=== PATIENT | female | born 1960 | race Caucasian/White ===

== ENCOUNTER 2019-01-26 08:59 | Emergency (ER) | payer BC, OTHER ==
[~2019-01-26] VITALS: Ht 165.1 cm; Wt 90.7 kg
[2019-01-26 09:22] LABS: BILIRUBIN,URINE NEGATIVE (NEGATIVE); CLARITY,URINE CLEAR; COLOR,URINE YELLOW; GLUCOSE, URINE (UA) NEGATIVE (NEGATIVE); KETONES,URINE NEGATIVE (NEGATIVE); LEUKOCYTE ESTERASE ,URINE 1+ (NEGATIVE); NITRITE,URINE NEGATIVE (NEGATIVE); PROTEIN,URINE NEGATIVE (NEGATIVE)
[2019-01-26 09:23] LABS: BACTERIA,URINE FEW /HPF
--- NOTE | 2019-01-26 09:23 | ED General ---
General Chief Complaint: Dizziness/Syncope Stated Complaint: SUPRAPUBIC PAIN; SYNCOPE; FEVER History of Present Illness Date Seen by Provider: Jan 26, 2019 Time Seen by Provider: 09:10 Initial Comments The patient is a very pleasant 58-year-old female who presents for evaluation of dysuria, suprapubic discomfort, and a syncopal episode in the bathroom this morning. She states that she had been feeling somewhat fatigue and possibly had a fever at home. She said a few days of dysuria and urinary urgency. This morning while she was home alone on the bathroom she states that she had a syncopal episode while urinating and hit her head on the ground. She does not believe that she lost consciousness. She states that she has chronic neck pain which is not any worse than usual. She has mild soreness to the back/right side of her head. She is alert and oriented 4, calm, appears to be in no distress upon arrival. She denies vision changes, focal weakness or numbness, chest pain or shortness of breath, back or flank pain, back pain/bleeding/discharge, headache, or nausea. She reports a history of hypertension. The abdominal discomfort is described as very mild at this time. Her was at work at the time and has come to the emergency department Severity: Mild Allergies and Home Medications Allergies Coded Allergies: No Known Drug Allergies (Unverified , 01/26/19) Home Medications Cephalexin 500 Mg Capsule, 500 MG PO BID Prescribed by: SUZANNA RIVERO on 01/26/19 1146 Patient Home Medication List Home Medication List Reviewed: Yes Review of Systems Review of Systems Constitutional: no symptoms reported EENTM: no symptoms reported Respiratory: no symptoms reported Cardiovascular: no symptoms reported Gastrointestinal: abdominal pain (suprapubic and mild) Genitourinary: no symptoms reported : No Musculoskeletal: no symptoms reported Skin: no symptoms reported Psychiatric/Neurological: No Symptoms Reported Hematologic/Lymphatic: No Symptoms Reported Immunological/Allergic: no symptoms reported All Other Systems Reviewed Negative Unless Noted: Yes Past Cyyzgxz-Tpmelx-Meemfu Hx Past Med/Social Hx: Reviewed Nursing Past Med/Soc Hx Physical Exam Vital Signs Vital Signs - First Documented 01/26/19 09:05 Temp 98.5 Pulse 84 Resp 18 B/P (MAP) 150/75 (100) Pulse Ox 95 O2 Delivery Room Air Capillary Refill : Height, Weight, BMI Height: '" Weight: lbs. oz. kg; BMI Method: General Appearance: No Apparent Distress, WD/WN HEENT: PERRL/EOMI, Pharynx Normal Neck: Full Range of Motion, Normal Inspection, Non Tender, Supple Respiratory: Chest Non Tender, Lungs Clear, Normal Breath Sounds, No Respiratory Distress Cardiovascular: Regular Rate, Rhythm, No Gallop, No JVD, Normal Peripheral Pulses Gastrointestinal: Normal Bowel Sounds, No Organomegaly, No Pulsatile Mass, Tenderness (mild suprapubic tenderness is present) Rectal: Normal Exam Back: Normal Inspection, No CVA Tenderness Extremity: Normal Capillary Refill, Normal Inspection, Normal Range of Motion, Non Tender, No Calf Tenderness Neurologic/Psychiatric: Alert, Oriented x3, No Motor/Sensory Deficits, Normal 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, 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 as 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 Skin: Normal Color, Warm/Dry Lymphatic: No Adenopathy Progress/Results/Core Measures Suspected Sepsis SIRS Temperature: Pulse: Respiratory Rate: Laboratory Tests 01/26/19 08:20: White Blood Count 12.0H Blood Pressure / Mean: Laboratory Tests 01/26/19 08:20: Creatinine 0.78, Platelet Count 344, Total Bilirubin 1.1H Results/Orders Lab Results Laboratory Tests Test 01/26/19 08:20 01/26/19 09:03 01/26/19 09:20 Range/Units White Blood Count 12.0 H 4.3-11.0 10^3/uL Red Blood Count 5.18 4.35-5.85 10^6/uL Hemoglobin 15.5 11.5-16.0 G/DL Hematocrit 46 35-52 % Mean Corpuscular Volume 89 80-99 FL Mean Corpuscular Hemoglobin 30 25-34 PG Mean Corpuscular Hemoglobin Concent 34 32-36 G/DL Red Cell Distribution Width 12.5 10.0-14.5 % Platelet Count 344 130-400 10^3/uL Mean Platelet Volume 9.4 7.4-10.4 FL Neutrophils (%) (Auto) 79 H 42-75 % Lymphocytes (%) (Auto) 12 12-44 % Monocytes (%) (Auto) 7 0-12 % Eosinophils (%) (Auto) 1 0-10 % Basophils (%) (Auto) 0 0-10 % Neutrophils # (Auto) 9.4 H 1.8-7.8 X 10^3 Lymphocytes # (Auto) 1.5 1.0-4.0 X 10^3 Monocytes # (Auto) 0.9 0.0-1.0 X 10^3 Eosinophils # (Auto) 0.1 0.0-0.3 10^3/uL Basophils # (Auto) 0.0 0.0-0.1 10^3/uL Sodium Level 140 135-145 MMOL/L Potassium Level 4.0 3.6-5.0 MMOL/L Chloride Level 103 98-107 MMOL/L Carbon Dioxide Level 25 21-32 MMOL/L Anion Gap 12 5-14 MMOL/L Blood Urea Nitrogen 13 7-18 MG/DL Creatinine 0.78 0.60-1.30 MG/DL Estimat Glomerular Filtration Rate > 60 BUN/Creatinine Ratio 17 Glucose Level 101 70-105 MG/DL Calcium Level 9.6 8.5-10.1 MG/DL Corrected Calcium 9.6 8.5-10.1 MG/DL Total Bilirubin 1.1 H 0.1-1.0 MG/DL Aspartate Amino Transf (AST/SGOT) 23 5-34 U/L Alanine Aminotransferase (ALT/SGPT) 19 0-55 U/L Alkaline Phosphatase 102 40-136 U/L Total Protein 7.2 6.4-8.2 GM/DL Albumin 4.0 3.2-4.5 GM/DL Urine Color YELLOW Urine Clarity CLEAR Urine pH 6.0 5-9 Urine Specific [place] 1.020 1.016-1.022 Urine Protein NEGATIVE NEGATIVE Urine Glucose (UA) NEGATIVE NEGATIVE Urine Ketones NEGATIVE NEGATIVE Urine Nitrite NEGATIVE NEGATIVE Urine Bilirubin NEGATIVE NEGATIVE Urine Urobilinogen 1.0 NORMAL MG/DL Urine Leukocyte Esterase 1+ H NEGATIVE Urine RBC (Auto) NEGATIVE NEGATIVE Urine RBC NONE /HPF Urine WBC 2-5 /HPF Urine Squamous Epithelial Cells 2-5 /HPF Urine Crystals NONE /LPF Urine Bacteria FEW H /HPF Urine Casts NONE /LPF Urine Mucus NONE /LPF Urine Culture Indicated YES Lipase 20 8-78 U/L My Orders Orders - SUZANNA RIVERO DO Ua Culture If Indicated (01/26/19 09:01) Cbc With Automated Diff (01/26/19 09:12) Comprehensive Metabolic Panel (01/26/19 09:12) Ed Iv/Invasive Line Start (01/26/19 09:12) Ct Head Wo (01/26/19 09:24) Urine Culture (01/26/19 09:03) Ns Iv 1000 Ml (Sodium Chloride 0.9%) (01/26/19 09:45) Ceftriaxone For Iv Use (Rocephin For I (01/26/19 09:45) Ondansetron Injection (Zofran Injectio (01/26/19 10:00) Ondansetron Injection (Zofran Injectio (01/26/19 09:54) Lipase (01/26/19 10:02) Ct Abdomen/Pelvis W (01/26/19 10:02) Iohexol Injection (Omnipaque 350 Mg/Ml 1 (01/26/19 10:15) Received Contrast (Hold Metformin- Contr (01/26/19 10:15) Sodium Chloride Flush (Catheter Flush Sy (01/26/19 10:15) Ns (Ivpb) (Sodium Chloride 0.9% Ivpb Bag (01/26/19 10:15) Medications Given in ED Current Medications Medications Dose Ordered Sig/Chris Route Start Time Stop Time Status Last Admin Dose Admin Ceftriaxone Sodium 1000 mg/ Sterile Water 10 ml @ 200 mls/hr ONCE ONCE IV 01/26/19 09:45 01/26/19 09:47 DC 01/26/19 09:58 200 MLS/HR Iohexol 100 ml ONCE ONCE IV 01/26/19 10:15 01/26/19 10:16 DC 01/26/19 13:45 100 ML Ondansetron HCl 4 mg ONCE ONCE IVP 01/26/19 10:00 01/26/19 10:01 DC 01/26/19 10:01 4 MG Sodium Chloride 10 ml NEEDED PRN IV 01/26/19 10:15 01/26/19 13:45 10 ML Sodium Chloride 100 ml ONCE ONCE IV 01/26/19 10:15 01/26/19 10:16 DC 01/26/19 13:45 100 ML Vital Signs/I&O 01/26/19 09:05 Temp 98.5 Pulse 84 Resp 18 B/P (MAP) 150/75 (100) Pulse Ox 95 O2 Delivery Room Air Capillary Refill : Progress Note : Progress Note @1020 - The patient reports that she is still nauseated and is having some slightly increasing lower abdominal discomfort. CT abdomen ordered. Vital signs stable and the patient remains afebrile. @1045 - there is a problem with the machine that runs the chemistries so the blood will need to be sent out. This was explained to the patient. @1130 - the patient stated that she just wanted to be discharged home and that she was feeling better. We explained to the patient that she would need to leave AGAINST MEDICAL ADVICE because we did not have the results of her chemistry test or her CT. Initially she states that she wants to leave AGAINST MEDICAL ADVICE. After a few minutes she changes her mind and states that she will in fact wait for the blood tests and imaging to be performed and does not want to leave against medical. @1419 - CT demonstrates evidence of acute diverticulitis. The patient will go home with a prescription for Cipro, Flagyl, and Saltese. This should also cover the urinary tract infection. Advised patient to follow up with her PCP in the next 2-3 days and return to the emergency Department immediately for new or worsening symptoms. Diagnostic Imaging Diagonstic Imaging: CT Comments [facility] [place] [place] NAME: MOUNIKA CUENCA [facility] REC#: [id number] PT STATUS: REG ER : 1960 PHYSICIAN: SUZANNA RIVERO DO ADMIT DATE: 01/26/19/ER FS Draft Date of Exam:01/26/19 CT HEAD WO PROCEDURE: CT head without contrast. TECHNIQUE: Multiple contiguous axial images were obtained through the brain without the use of intravenous contrast. Auto Exposure Controls were utilized during the CT exam to meet ALARA standards for radiation dose reduction. INDICATION: Headache, dizziness and syncope. COMPARISON: No prior studies are available for comparison. FINDINGS: The ventricles and sulci are within normal limits. No sulcal effacement or midline shift is identified. No acute intra-axial or extra-axial hemorrhage is detected. Cisterns are patent. Visualized paranasal sinuses are clear. Impression: No acute intracranial process is detected. Dictated on workstation # [id number] Dict: 01/26/1948 Trans: 01/26/19 0950 [facility] [id number] Interpreted by: WILTON ARROYO MD Electronically signed by: CLYDE [facility] [place] [place] NAME: MOUNIKA CUENCA [facility] REC#: [id number] PT STATUS: REG ER : 1960 PHYSICIAN: SUZANNA RIVERO DO ADMIT DATE: 01/26/19/ER FS Draft Date of Exam:01/26/19 CT ABDOMEN/PELVIS W PROCEDURE: CT abdomen and pelvis with contrast. TECHNIQUE: Multiple contiguous axial images were obtained through the abdomen and pelvis after administration of intravenous contrast. Auto Exposure Controls were utilized during the CT exam to meet ALARA standards for radiation dose reduction. INDICATION: Suprapubic pain and cramping. COMPARISON: None. FINDINGS: LOWER THORAX: Lung bases are clear. Visualized heart is normal in size. LIVER: Normal. GALLBLADDER: Normal CT appearance. BILE DUCTS: No biliary ductal dilatation. SPLEEN: Normal. PANCREAS: Normal. No pancreatic ductal dilatation. ADRENAL GLANDS: No nodules. RIGHT KIDNEY AND URETER: No hydronephrosis. Normal renal enhancement. No suspicious mass. The visualized ureter is normal. LEFT KIDNEY AND URETER: No hydronephrosis. Normal renal enhancement. No suspicious mass. Incidental note is made of a parapelvic cyst in the lower pole collecting system. The visualized ureter is normal. STOMACH AND BOWEL: Small hiatal hernia. Patient is status post gastric bypass surgery. Evaluation of site of anastomosis is limited without oral contrast, however, no anastomotic abnormality is appreciated. No bowel obstruction. There is diverticulosis of the lung. There is marked focal thickening in the mid sigmoid colon, with moderate surrounding inflammatory change. APPENDIX: Not visualized. No pericecal inflammation. PELVIC ORGANS/BLADDER: There is apparent mild circumferential thickening of the bladder. There is mild inflammatory change superior to the bladder, likely related to the findings in the sigmoid colon. Uterus is absent. No pelvic mass. PERITONEUM AND RETROPERITONEUM: As mentioned above, there is marked pericolonic inflammatory change in the pelvis adjacent to the mid sigmoid colon. There is no evidence of pneumoperitoneum or focal/loculated rim-enhancing collection to suggest abscess. LYMPH NODES: No lymphadenopathy. VESSELS: Abdominal aorta is nonaneurysmal. No venous thrombosis. ABDOMINAL WALL: Unremarkable. BONES: Multilevel degenerative changes involve the spine. No acute osseous abnormality. IMPRESSION: Acute diverticulitis involving the mid sigmoid colon. No evidence of perforation or abscess formation. There is apparent circumferential thickening of the bladder, which may be secondary to underdistention. Inflammatory change adjacent to the superior bladder is felt to be related to the sigmoid colon process. Dictated on workstation # [id number] Dict: 01/26/19 1354 Trans: 01/26/19 1406 [facility] [id number] Interpreted by: ALMAZ CEULLAR DO Electronically signed by: Departure Impression Primary Impression: Acute diverticulitis Additional Impression: Acute UTI Disposition: 01 HOME, SELF-CARE Condition: Stable Departure-Patient Inst. Referrals: GAVIOTA CATES MD (PCP/Family) Primary Care Physician Patient Instructions: Diverticulitis (DC), Urinary Tract Infection, Adult (DC) Add. Discharge Instructions: Take the prescribed medication as directed. Return to the emergency department for new or worsening symptoms. Follow up with her doctor in the next 2-3 days. Scripts Hydrocodone/Acetaminophen (Saltese 5-325 Tablet) 1 Each Tablet 1 TAB PO Q4-6HR for Pain MDD 10 TABS for 7 Days, #15 TAB Prov: SUZANNA RIVERO DO 01/26/19 Ciprofloxacin HCl (Ciprofloxacin HCl) 500 Mg Tablet 500 MG PO BID for 7 Days, #14 TAB Prov: SUZANNA RIVERO DO 01/26/19 Metronidazole (Flagyl) 500 Mg Tablet 500 MG PO TID for 7 Days, #21 TAB Prov: SUZANNA RIVERO DO 01/26/19 SUZANNA RIVERO DO Jan 26, 2019 09:23
[2019-01-26 09:32] LABS: HEMATOCRIT 46 % (35-52); HEMOGLOBIN 15.5 G/DL (11.5-16.0); MEAN CORPUSCULAR HEMOGLOBIN 30 PG (25-34); MEAN CORPUSCULAR HGB CONC 34 G/DL (32-36); MEAN CORPUSCULAR VOLUME 89 FL (80-99); RED CELL DISTRIBUTION WIDTH 12.5 % (10.0-14.5)
[2019-01-26 09:33] LABS: BASOPHILS % (AUTO) 0 % (0-10); EOSINOPHILS # (AUTO) 0.1 10^3/uL (0.0-0.3); EOSINOPHILS % (AUTO) 1 % (0-10); LYMPHOCYTES # (AUTO) 1.5 X 10^3 (1.0-4.0); LYMPHOCYTES % (AUTO) 12 % (12-44); MEAN PLATELET VOLUME 9.4 FL (7.4-10.4); MONOCYTES # (AUTO) 0.9 X 10^3 (0.0-1.0); MONOCYTES % (AUTO) 7 % (0-12); NEUTROPHILS # (AUTO) 9.4 X 10^3 (1.8-7.8); NEUTROPHILS % (AUTO) 79 % (42-75); PLATELET COUNT 344 10^3/uL (130-400)
[2019-01-26] MEDS ORDERED: cefTRIAXone FOR IV USE 1,000 MG in WATER (STERILE) FOR INJECTION 10 ML IV ONE (09:45)
[2019-01-26] MEDS ORDERED: NS IV 1000 ML 1,000 ML IV SCH (09:45)
--- NOTE | 2019-01-26 09:50 | Diagnostic Imaging Report ---
PROCEDURE: CT head without contrast. TECHNIQUE: Multiple contiguous axial images were obtained through the brain without the use of intravenous contrast. Auto Exposure Controls were utilized during the CT exam to meet ALARA standards for radiation dose reduction. INDICATION: Headache, dizziness and syncope. COMPARISON: No prior studies are available for comparison. FINDINGS: The ventricles and sulci are within normal limits. No sulcal effacement or midline shift is identified. No acute intra-axial or extra-axial hemorrhage is detected. Cisterns are patent. Visualized paranasal sinuses are clear. Impression: No acute intracranial process is detected. Dictated by: Dictated on workstation # [id number]
[2019-01-26] MEDS ORDERED: ONDANSETRON 4 MG/2 ML (SDV) Z0FRAN ONE (09:54)
[2019-01-26] MEDS ORDERED: ONDANSETRON 4 MG/2 ML (SDV) Z0FRAN IVP ONE (10:00)
[2019-01-26] MEDS ORDERED: IOHEXOL 350 MG/ML 100 ML (OMNIPAQUE 350) VIAL IV ONE (10:15)
[2019-01-26] MEDS ORDERED: CATHETER FLUSH 10 ML SYR IV PRN (10:15)
[2019-01-26] MEDS ORDERED: NS 100 ML (IVPB) BAG IV ONE (10:15)
[2019-01-26] MEDS ORDERED: HOLD METFORMIN - RECEIVED CONTRAST 20 ML VIAL IV SCH (10:15)
[2019-01-26] MEDS ORDERED: CEPH-507 PO (11:46)
[2019-01-26 13:20] LABS: BUN/CREATININE RATIO 17; CALCIUM 9.6 MG/DL (8.5-10.1); CARBON DIOXIDE 25 MMOL/L (21-32); CHLORIDE 103 MMOL/L (98-107); CREATININE SERUM 0.78 MG/DL (0.60-1.30); GFR ESTIMATED > 60; GLUCOSE 101 MG/DL (70-105); SODIUM 140 MMOL/L (135-145)
[2019-01-26 13:21] LABS: ALANINE AMINOTRANSFERASE 19 U/L (0-55); ALKALINE PHOSPHATASE 102 U/L (40-136); BILIRUBIN,TOTAL 1.1 MG/DL (0.1-1.0); TOTAL PROTEIN 7.2 GM/DL (6.4-8.2)
--- NOTE | 2019-01-26 14:07 | Diagnostic Imaging Report ---
PROCEDURE: CT abdomen and pelvis with contrast. TECHNIQUE: Multiple contiguous axial images were obtained through the abdomen and pelvis after administration of intravenous contrast. Auto Exposure Controls were utilized during the CT exam to meet ALARA standards for radiation dose reduction. INDICATION: Suprapubic pain and cramping. COMPARISON: None. FINDINGS: LOWER THORAX: Lung bases are clear. Visualized heart is normal in size. LIVER: Normal. GALLBLADDER: Normal CT appearance. BILE DUCTS: No biliary ductal dilatation. SPLEEN: Normal. PANCREAS: Normal. No pancreatic ductal dilatation. ADRENAL GLANDS: No nodules. RIGHT KIDNEY AND URETER: No hydronephrosis. Normal renal enhancement. No suspicious mass. The visualized ureter is normal. LEFT KIDNEY AND URETER: No hydronephrosis. Normal renal enhancement. No suspicious mass. Incidental note is made of a parapelvic cyst in the lower pole collecting system. The visualized ureter is normal. STOMACH AND BOWEL: Small hiatal hernia. Patient is status post gastric bypass surgery. Evaluation of site of anastomosis is limited without oral contrast, however, no anastomotic abnormality is appreciated. No bowel obstruction. There is diverticulosis of the lung. There is marked focal thickening in the mid sigmoid colon, with moderate surrounding inflammatory change. APPENDIX: Not visualized. No pericecal inflammation. PELVIC ORGANS/BLADDER: There is apparent mild circumferential thickening of the bladder. There is mild inflammatory change superior to the bladder, likely related to the findings in the sigmoid colon. Uterus is absent. No pelvic mass. PERITONEUM AND RETROPERITONEUM: As mentioned above, there is marked pericolonic inflammatory change in the pelvis adjacent to the mid sigmoid colon. There is no evidence of pneumoperitoneum or focal/loculated rim-enhancing collection to suggest abscess. LYMPH NODES: No lymphadenopathy. VESSELS: Abdominal aorta is nonaneurysmal. No venous thrombosis. ABDOMINAL WALL: Unremarkable. BONES: Multilevel degenerative changes involve the spine. No acute osseous abnormality. IMPRESSION: Acute diverticulitis involving the mid sigmoid colon. No evidence of perforation or abscess formation. There is apparent circumferential thickening of the bladder, which may be secondary to underdistention. Inflammatory change adjacent to the superior bladder is likely related to the sigmoid colon process. Acute cystitis should be excluded on a clinical basis. Dictated by: Dictated on workstation # [id number]
[2019-01-26] MEDS ORDERED: METR500T PO (14:18)
[2019-01-26] MEDS ORDERED: HYDR-4226 PO (14:18)
[2019-01-26] MEDS ORDERED: CIPR500T4 PO (14:18)
[2019-01-26 14:30] VITALS: BP 139/67
== END 2019-01-26 14:34 | disposition home or self-care (01) ==
LOC: ER FS 09:01
DX: N39.0 Urinary tract infection, site not specified (principal); K57.32 Diverticulitis of large intestine without perforation or abscess without bleeding
CPT/HCPCS: 36415; 70450; 74177; 80053; 81000; 83690; 85025; 87088; 96361; 96374; 96375

== ENCOUNTER 2019-05-08 22:35 | Emergency (ER) | payer BC ==
[~2019-05-08] VITALS: Ht 165 cm; Wt 90.1 kg
[~2019-05-08 22:35] MED LIST: CEPH-507 PO; CIPR500T4 PO; HYDR-4226 PO; METR500T PO
[2019-05-08] MEDS ORDERED: VANCOMYCIN INJECTION 1,000 MG in NS (IVPB) 250 ML IV ONE (23:00)
[2019-05-08] MEDS ORDERED: PIPERACILLIN SODIUM/TAZOBACTAM 4.5 GM in NS (IVPB) 100 ML IV ONE (23:00)
[2019-05-08 23:13] LABS: BASOPHILS # (AUTO) 0.1 10^3/uL (0.0-0.1); BASOPHILS % (AUTO) 1 % (0-10); EOSINOPHILS # (AUTO) 0.2 10^3/uL (0.0-0.3); EOSINOPHILS % (AUTO) 2 % (0-10); HEMATOCRIT 43 % (35-52); HEMOGLOBIN 14.2 G/DL (11.5-16.0); LYMPHOCYTES # (AUTO) 1.7 X 10^3 (1.0-4.0); LYMPHOCYTES % (AUTO) 21 % (12-44); MEAN CORPUSCULAR HEMOGLOBIN 29 PG (25-34); MEAN CORPUSCULAR HGB CONC 33 G/DL (32-36); MEAN CORPUSCULAR VOLUME 87 FL (80-99); MEAN PLATELET VOLUME 9.2 FL (7.4-10.4); MONOCYTES # (AUTO) 0.8 X 10^3 (0.0-1.0); MONOCYTES % (AUTO) 9 % (0-12); NEUTROPHILS # (AUTO) 5.6 X 10^3 (1.8-7.8); NEUTROPHILS % (AUTO) 67 % (42-75); PLATELET COUNT 389 10^3/uL (130-400); RED CELL DISTRIBUTION WIDTH 13.3 % (10.0-14.5); WHITE BLOOD COUNT 8.4 10^3/uL (4.3-11.0)
[2019-05-08 23:29] LABS: INR 0.9 (0.8-1.4); PROTHROMBIN TIME PATIENT 12.9 SEC (12.2-14.7)
[2019-05-08 23:37] LABS: ALANINE AMINOTRANSFERASE 14 U/L (0-55); ALBUMIN 3.7 GM/DL (3.2-4.5); ALKALINE PHOSPHATASE 101 U/L (40-136); BILIRUBIN,TOTAL 0.6 MG/DL (0.1-1.0); BUN/CREATININE RATIO 14; CALCIUM 9.3 MG/DL (8.5-10.1); CARBON DIOXIDE 20 MMOL/L (21-32); CHLORIDE 105 MMOL/L (98-107); CREATININE SERUM 0.72 MG/DL (0.60-1.30); GFR ESTIMATED > 60; GLUCOSE 119 MG/DL (70-105); POTASSIUM 4.2 MMOL/L (3.6-5.0); SODIUM 138 MMOL/L (135-145); TOTAL PROTEIN 7.2 GM/DL (6.4-8.2)
--- NOTE | 2019-05-08 23:40 | NUR ---
Pt unhooked from IV infusion at this time to go to CT.
[2019-05-09] MEDS ORDERED: NS 100 ML (IVPB) BAG IV ONE
[2019-05-09] MEDS ORDERED: IOHEXOL 350 MG/ML 100 ML (OMNIPAQUE 350) VIAL IV ONE
[2019-05-09 00:09] LABS: BILIRUBIN,URINE NEGATIVE (NEGATIVE); CLARITY,URINE CLEAR; COLOR,URINE YELLOW; GLUCOSE, URINE (UA) NEGATIVE (NEGATIVE); KETONES,URINE NEGATIVE (NEGATIVE); LEUKOCYTE ESTERASE ,URINE 2+ (NEGATIVE); NITRITE,URINE NEGATIVE (NEGATIVE); PH,URINE 6 (5-9); PROTEIN,URINE 1+ (NEGATIVE)
[2019-05-09 00:29] LABS: BACTERIA,URINE FEW /HPF
[2019-05-09] MEDS ORDERED: SULF1TAB35 PO (01:08)
[2019-05-09] MEDS ORDERED: ONDA8TAB13 PO (01:08)
[2019-05-09] MEDS ORDERED: OXYC-465 PO (01:08)
--- NOTE | 2019-05-09 01:09 | ED General ---
General Chief Complaint: General Problems/Pain Stated Complaint: LYMPH NODE REMOVED, AREA IS RED AND PAINFUL Nursing Triage Note: Pt ambulates to Rm 5 with c/o incision pain/redness/swelling after a partial vulvectomy that was performed on 04/25/19. Site is hard to touch, red and swollen upon intial exam. Pt rates pain 6/10 and reports taking a oxycodone 10mg approx 2130 this evening. Pt denies fever/chills, temp of 99.5F (37.5C) upon arrival. Nursing Sepsis Screen: No Definite Risk Allergies and Home Medications Allergies Coded Allergies: No Known Drug Allergies (Unverified , 01/26/19) Home Medications Ciprofloxacin HCl 500 Mg Tablet, 500 MG PO BID Prescribed by: SUZANNA RIVERO on 01/26/19 1418 Hydrocodone/Acetaminophen 1 Each Tablet, 1 TAB PO Q4-6HR Prescribed by: SUZANNA RIVERO on 01/26/19 1418 Metronidazole 500 Mg Tablet, 500 MG PO TID Prescribed by: SUZANNA RIVERO on 01/26/19 1418 Past Rdtmowb-Uurjcq-Mgonyo Hx Patient Social History Alcohol Use: Denies Use Recreational Drug Use: No Smoking Status: Never a Smoker 2nd Hand Smoke Exposure: No Recent Foreign Travel: No Contact w/Someone Who Travel: No Recent Infectious Disease Expo: No Recent Hopitalizations: Yes (partial vulvectomy 04/25/19) Physical Abuse: No Sexual Abuse: No Mistreated: No Fear: No Seasonal Allergies Seasonal Allergies: No Past Medical History Surgeries: Yes (gastric surgery, neck surgery, carpal tunnel Rt hand, gastric bypass 2009 ) Section Respiratory: No Cardiac: Yes Hypertension 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 oz. [id number]; 33.00 BMI Method:Stated Focused Exam Lactate Level 05/08/19 23:00: Lactic Acid Level 1.39 Lactic Acid Level Laboratory Tests Test 05/08/19 23:00 Lactic Acid Level 1.39 MMOL/L (0.50-2.00) Progress/Results/Core Measures Suspected Sepsis Recent Fever Within 48 Hours: No Infection Criteria Present: None New/Unexplained Altered Menta: No Sepsis Screen: No Definite Risk SIRS Temperature: Pulse: 75 Respiratory Rate: 19 Laboratory Tests 05/08/19 23:00: White Blood Count 8.4 Blood Pressure 148 /70 Mean: 96 05/08/19 23:00: Lactic Acid Level 1.39 Laboratory Tests 05/08/19 23:00: Creatinine 0.72, INR Comment 0.9, Platelet Count 389, Total Bilirubin 0.6 Results/Orders Lab Results Laboratory Tests Test 05/08/19 23:00 05/09/19 00:03 Range/Units White Blood Count 8.4 4.3-11.0 10^3/uL Red Blood Count 4.89 4.35-5.85 10^6/uL Hemoglobin 14.2 11.5-16.0 G/DL Hematocrit 43 35-52 % Mean Corpuscular Volume 87 80-99 FL Mean Corpuscular Hemoglobin 29 25-34 PG Mean Corpuscular Hemoglobin Concent 33 32-36 G/DL Red Cell Distribution Width 13.3 10.0-14.5 % Platelet Count 389 130-400 10^3/uL Mean Platelet Volume 9.2 7.4-10.4 FL Neutrophils (%) (Auto) 67 42-75 % Lymphocytes (%) (Auto) 21 12-44 % Monocytes (%) (Auto) 9 0-12 % Eosinophils (%) (Auto) 2 0-10 % Basophils (%) (Auto) 1 0-10 % Neutrophils # (Auto) 5.6 1.8-7.8 X 10^3 Lymphocytes # (Auto) 1.7 1.0-4.0 X 10^3 Monocytes # (Auto) 0.8 0.0-1.0 X 10^3 Eosinophils # (Auto) 0.2 0.0-0.3 10^3/uL Basophils # (Auto) 0.1 0.0-0.1 10^3/uL Prothrombin Time 12.9 12.2-14.7 SEC INR Comment 0.9 0.8-1.4 Activated Partial Thromboplast Time 32 24-35 SEC Sodium Level 138 135-145 MMOL/L Potassium Level 4.2 3.6-5.0 MMOL/L Chloride Level 105 98-107 MMOL/L Carbon Dioxide Level 20 L 21-32 MMOL/L Anion Gap 13 5-14 MMOL/L Blood Urea Nitrogen 10 7-18 MG/DL Creatinine 0.72 0.60-1.30 MG/DL Estimat Glomerular Filtration Rate > 60 BUN/Creatinine Ratio 14 Glucose Level 119 H 70-105 MG/DL Lactic Acid Level 1.39 0.50-2.00 MMOL/L Calcium Level 9.3 8.5-10.1 MG/DL Corrected Calcium 9.5 8.5-10.1 MG/DL Total Bilirubin 0.6 0.1-1.0 MG/DL Aspartate Amino Transf (AST/SGOT) 17 5-34 U/L Alanine Aminotransferase (ALT/SGPT) 14 0-55 U/L Alkaline Phosphatase 101 40-136 U/L Total Protein 7.2 6.4-8.2 GM/DL Albumin 3.7 3.2-4.5 GM/DL Urine Color YELLOW Urine Clarity CLEAR Urine pH 6 5-9 Urine Specific [place] 1.015 L 1.016-1.022 Urine Protein 1+ H NEGATIVE Urine Glucose (UA) NEGATIVE NEGATIVE Urine Ketones NEGATIVE NEGATIVE Urine Nitrite NEGATIVE NEGATIVE Urine Bilirubin NEGATIVE NEGATIVE Urine Urobilinogen 4 H NORMAL MG/DL Urine Leukocyte Esterase 2+ H NEGATIVE Urine RBC (Auto) 3+ H NEGATIVE Urine RBC 10-25 H /HPF Urine WBC 5-10 H /HPF Urine Squamous Epithelial Cells 5-10 /HPF Urine Crystals NONE /LPF Urine Bacteria FEW H /HPF Urine Casts PRESENT /LPF Urine Hyaline Casts 2-5 H /LPF Urine Mucus LARGE H /LPF Urine Culture Indicated CULTURE PENDING My Orders Orders - NASIM GARRETT DO Ed Iv/Invasive Line Start (05/08/19 22:56) Monitor-Rhythm Ecg Trace Only (05/08/19 22:56) Cbc With Automated Diff (05/08/19 22:56) Comprehensive Metabolic Panel (05/08/19 22:56) Blood Culture (05/08/19 22:56) Urinalysis (05/08/19 22:56) Urine Culture (05/08/19 22:56) Protime With Inr (05/08/19 22:56) Partial Thromboplastin Time (05/08/19 22:56) Ed Iv/Invasive Line Start (05/08/19 22:56) Ed Iv/Invasive Line Start (05/08/19 22:56) Vital Signs Adult Sepsis Patie Q15M (05/08/19 22:56) Remove Rings In Anticipation O (05/08/19 22:56) Lactic Acid Analyzer (05/08/19 22:56) Piperacillin Sodium/Tazobactam (Zosyn Vi (05/08/19 23:00) Vancomycin Injection (Vancomycin Injecti (05/08/19 23:00) Ct Pelvis W (05/08/19 22:56) Iohexol Injection (Omnipaque 350 Mg/Ml 1 (05/09/19 00:00) Ns (Ivpb) (Sodium Chloride 0.9% Ivpb Bag (05/09/19 00:00) Medications Given in ED Current Medications Medications Dose Ordered Sig/Chris Route Start Time Stop Time Status Last Admin Dose Admin Iohexol 100 ml ONCE ONCE IV 05/09/19 00:00 05/09/19 00:08 DC 05/08/19 23:56 100 ML Piperacillin Sod/ Tazobactam Sod 4.5 gm/Sodium Chloride 100 ml @ 200 mls/hr ONCE ONCE IV 05/08/19 23:00 05/08/19 23:29 DC 05/09/19 00:53 200 MLS/HR Sodium Chloride 80 ml ONCE ONCE IV 05/09/19 00:00 05/09/19 00:08 DC 05/08/19 23:56 80 ML Vancomycin HCl 1000 mg/Sodium Chloride 250 ml @ 250 mls/hr ONCE ONCE IV 05/08/19 23:00 05/08/19 23:59 DC 05/08/19 23:25 250 MLS/HR Vital Signs/I&O 05/08/19 22:46 Temp 37.5 Pulse 75 Resp 19 B/P (MAP) 148/70 (96) Pulse Ox 98 O2 Delivery Room Air Capillary Refill : Less Than 3 Seconds Blood Pressure Mean: 96 Departure Impression Primary Impression: Postoperative wound infection Disposition: 01 HOME, SELF-CARE Condition: Stable Departure-Patient Inst. Referrals: GAVIOTA CATES MD (PCP/Family) Primary Care Physician Patient Instructions: Wound Infection, Urinary Tract Infection, Child (DC), How to Prevent Surgical Site Infections Add. Discharge Instructions: CONTINUE YOUR REGULAR MEDICATIONS PRESCRIBED CONTINUE ALL YOUR POST OP INSTRUCTIONS FOLLOW UP WITH YOUR SURGEON THIS WEEK FOR FURTHER CARE All discharge instructions reviewed with patient and/or family. Voiced understanding. NASIM GARRETT DO May 09, 2019 01:09
[2019-05-09 01:29] VITALS: BP 123/53
--- NOTE | 2019-05-09 07:30 | Diagnostic Imaging Report ---
PROCEDURE: CT pelvis with contrast. TECHNIQUE: Oral and intravenous contrast were administered with pelvic CT performed. Auto Exposure Controls were utilized during the CT exam to meet ALARA standards for radiation dose reduction. Date: May 08, 2019. INDICATION: 58-year-old female, incisional pain, redness, and swelling after partial vulvectomy performed on April 25, 2019. COMPARISON: CT abdomen and pelvis January 26, 2019. FINDINGS: In the left inguinal region on axial image 90, there is a peripherally enhancing fluid collection which measures 3.5 x 1.1 x 1.4 cm in size with prominent adjacent inflammatory stranding most likely relating to an abscess. There is an additional area of focal fluid more inferiorly which may be contiguous with the above mentioned collection on axial image 107. At the specific level, this measures approximately 2.1 x 2.0 x 1.8 cm in size. There is also inflammatory stranding adjacent to this area. There is some focal abnormal attenuation in the right inguinal region as well without well marginated drainable fluid collection or abscess. There are mildly prominent bilateral inguinal lymph nodes. There is no abnormal soft tissue gas. There is distortion of contour and peripheral enhancement in the region of the lower aspect of the vagina on the left including gas and fluid attenuation at the area on axial image 103 measuring 2.4 x 0.6 cm in size. It is uncertain if this relates to an adjacent abscess or relates to the lumen within the vaginal canal. The uterus is unremarkable in appearance. There are postoperative changes of bowel. There is no identified abnormally distended segment of bowel. There is no sizable volume free fluid in the pelvis. There are atherosclerotic calcifications. There are degenerative changes of the lower lumbar spine. IMPRESSION: 1. Peripherally enhancing fluid collections in the left inguinal region most likely relating to abscesses or other nonspecific fluid collection. The collections may be contiguous. Measurements are as above. 2. Focal abnormal attenuation in the right inguinal canal without evidence of mature abscess. 3. Distortion of contour at the level of the vagina with gas and fluid attenuation asymmetric to the left of midline at the level of the lower vagina which could relate to an adjacent abscess. Contents within a distorted vaginal canal would also be considered. Dictated by: Dictated on workstation # [id number]
== END 2019-05-09 01:30 | disposition home or self-care (01) ==
LOC: EDUNIT# 22:35 → ER 22:37
DX: T81.49XA Infection following a procedure, other surgical site, initial encounter (principal); I10 Essential (primary) hypertension; Z98.84 Bariatric surgery status; Z90.710 Acquired absence of both cervix and uterus
CPT/HCPCS: 36415; 72193; 80053; 83605; 85025; 85610; 85730; 87040; 93041

== ENCOUNTER 2021-07-19 11:00 | Emergency (ER) | payer BC ==
[~2021-07-19] VITALS: Ht 167 cm; Wt 96.0 kg
[~2021-07-19 11:00] MED LIST changes: -CIPR500T4 PO; +CIPR500T5 PO; +ONDA8TAB13 PO; +OXYC-556 PO; +SULF1TAB38 PO
--- OUTSIDE RECORDS SUMMARY | 2021-07-19 11:05 | XMS REPORT | Encounter Summary ---
Author Author [facility] Organization [facility] Address Unknown Phone Unavailable Care Team Providers Care Utilization Management Manager Name Role Phone Emily Caba MA Unavailable Unavailable Lulu Lloyd MD PCP Encounter Details Care Team Description Date Type Department Garima Steve MD [id number] [place] [address] 07/15/2021 Anesthesia Patient Care Unit B H51: Event Main [facility], [facility] 4000 [facility] [address] [place] [address] Anesthesia Record Responsible Anesthesiologist Anesthesia Start Time Anesthesi a Stop Time Procedure Name ENDOSCOPIC RETROGRADE CHOLANGIOPANCREATOGRAPHY (canceled) No events on file. Meds * No agents on file. * No blood administrations on file. No LDAs on file. documented in this encounter Social History Date Tobacco Use Types Packs/Day Years Used Former Smoker Smokeless Tobacco: Never Used Comments: as a teenager Comments Alcohol Use Standard Drinks/Week Never 0 (1 standard drink = 0.6 o z pure alcohol) Alcohol Habits Answer Date Recorded How often do you have a drink containing alcohol? Never 03/23/2019 How many drinks containing alcohol do you have on No t asked a typical day when you are drinking? How often do you have six or more drinks on one Not asked occasion? Comment: Not asked Sex Assigned at Date Recorded Female 11/02/2020 4:42 PM CDT Date Recorded COVID-19 Exposure Response 07/11/2021 10:00 PM WATER AEROBICS INSTRUCTOR In the last month, have you been in contact with No / Unsure someone who was confirmed or suspected to have Coronavirus / COVID-19? documented as of this encounter Functional Status Date of Assessment Functional Status Response 11/07/2020 Does the patient have a hearing impairment: No 11/07/2020 Does the patient have a visual impairment: Yes 11/07/2020 Does the patient have impaired ambulation: No 11/07/2020 Does the patient have an activity of daily living No (ADL) impairment: 11/07/2020 Does the patient have an instrumental activity of No daily living (IADL) impairment: Date of Assessment Cognitive Status Response 11/07/2020 Does the patient have a cognitive impairment: No documented as of this encounter Plan of Treatment Not on filedocumented as of this encounter Goals Goal Patient Associated Recent Progress Patient-Stat Aut hor Goal Type Problems ed? Increase Physical Activity Exercise On track (07/15/2021 No Michelle Gómez, 12:50 AM WATER AEROBICS INSTRUCTOR) RN Decrease pain Hospital On track (07/15/2021 No Michelle Allen, 12:50 AM WATER AEROBICS INSTRUCTOR) RN Get Adequate Sleep Lifestyle On track (07/15/2021 No Michelle Gómez, 12:50 AM WATER AEROBICS INSTRUCTOR) RN documented as of this encounter Visit Diagnoses Not on filedocumented in this encounter Additional Health Concerns Noted Time Assessment 07/12/2021 8:23 PM WATER AEROBICS INSTRUCTOR A fall risk assessment has been complet ed for the patient 12/10/2020 12:49 PM CDT PHQ-2 Depression Total Score: 0 documented as of this encounter Care Teams Start Date End Date Utilization Management Manager Relationship Specialty 07/03/20 Lulu Lloyd MD PCP - General [address] [phone] 01/24/16 Emily Caba MA Maternal and Medicine documented as of this encounter
--- OUTSIDE RECORDS SUMMARY | 2021-07-19 11:05 | XMS REPORT | Encounter Summary ---
Author Author [facility] Organization [facility] Address Unknown Phone Unavailable Care Team Providers Care Business Project Manager Name Role Phone RosalesEmily JAMES Unavailable Unavailable Lulu Lloyd MD PCP Reason for Visit * Auth/Cert Diagnoses / Procedures Referred By Contact Referred To Conta ct Specialty Diagnoses Abdominal pain abd pain, nausea Referral ID Status Reason Start Date Expiration Visits Vi sits Date Requested Authorized [id number] 1 1 Encounter Details Care Team Description Date Type Department Alphonso Caldwell MD [address] [place] [address] Teresa Weldon CRNA [address] [place] [address] 07/14/2021 Anesthesia Operating Room: [facility] 4000 [facility] [address] [place] [address] Anesthesia Record Responsible Anesthesiologist Anesthesia Start Time Anesthesi a Stop Time Procedure Name Alphonso Caldwell MD 07/14/21 0823 07/14/21 1043 LAPAROSCOPIC CHOLECYSTECTOMY, INTRAOPERATIVE CHOLANGIOGRAM (N/A Abdomen) Date Time Event Comment 723 0732 AN Equip Check 0823 Anes Start 0823 Out of Pre Procedure 0824 In Room 0824 An Start Data 0830 An Induction The patient was ree valuated immediately before moderate or deep sedation use and before anesthesia induction. 0831 An Intubation 0832 Anesthesia OGT LIS Ready 0834 Antibiotic Given 0845 Proc Start 1036 An Extubation 1039 an stop data 1043 Handoff to RN I completed my SBAR handoff to the receiving nurse. 1043 An Stop Meds Name Total midazolam (VERSED) 1 mg/mL injection 2 mg fentaNYL PF (SUBLIMAZE) injection 100 mcg lidocaine (2%) 200 mg/10mL Injection 100 mg syringe propofol (DIPRIVAN) 200 mg/ 20 mL 200 mg injection (VIAL) succinylcholine (ANECTINE) injection 100 mg (VIAL) rocuronium (ZEMURON) injection 60 mg ondansetron (ZOFRAN) injection 4 mg dexamethasone (DECADRON) 4 mg/mL 4 mg injection phenylephrine (TAYLOR-SYNEPHRINE) 0.1 mg/mL 300 mcg injection syr sugammadex (BRIDION) 100 mg/mL iv soln 400 mg lactated ringers infusion 900 mL * Name O2 N2O Inspired N2O Sevoflurane Desflurane Inspired Desflurane Inspired Sevoflurane * No blood administrations on file. Removal Type Details Placement 07/15/21 1130 by Sammi Delgado RN Peripheral 07/12/21; 0338; RN; R; Mid; Hand; 22 G; 07/12/21 0338 by STEVEN Mcarthur 07/15/21; 1130 RAY Helms 07/15/21 1131 by Sammi Delgado RN Peripheral 07/14/21; 0702; IV Therapy; L; Lower; 07/14/21 0702 by STEVEN Blake Forearm; 20 G; 0 cm; No; Ultrasound; 1; RAY Doll 1.75 inches; 07/15/21; 1131 07/14/21 1036 by Teresa Weldon CRN A ETT 07/14/21; 0831; Mask ventilation not 1 09/14/20 0831 by attempted (0); Direct laryngoscopy, Teresa Weldno CRNA Rapid sequence, Stylet; Single-Lumen, Cuffed; ETT Size: 7mm; Mac; Blade Size: 3; Cricoid Pressure: Yes; Oral; 1-Full view of the glottis; 1 insertion attempt; Auscultation, ETCO2 Detector; Taped at Gums: 20 centimeters (R lip); atraumatic. secured with tape.; 07/14/21; 1036 07/15/21 1150 by Ku, New Home Sales Consultant Wounds 07/14/21; 0845; Surgical incision; 0845 by Abdomen; 07/15/21; 1150 Birdie Ray RN documented in this encounter Social History Date [...] Recorded COVID-19 Exposure Response 07/11/2021 10:00 PM TENTERING MACHINE FEEDER In the last month, have you been [...] impairment: No documented as of this encounter OR Notes * Anesthesia Postprocedure Evaluation - Carlton Charles MD - 07/14/2021 11:37 AM TENTERING MACHINE FEEDER Post-Anesthesia Evaluation Name: Judith Sands : 1960 Age: 60 y.o. Sex: female Procedure Information Anesthesia Start Date/Time: 07/14/21822 Procedure: LAPAROSCOPIC CHOLECYSTECTOMY, INTRAOPERATIVE CHOLANGIOGRAM (N/A Abdo men) Location: MAIN OR 06 / Main OR/Periop Surgeons: Abe Leyva MD Post-Anesthesia Vitals BP: 161/74 (07/14 1130) Temp: 36.6 C (97.9 F) (07/14 1040) Pulse: 83 (07/14 1130) Respirations: 18 PER MINUTE (07/14 1130) SpO2: 97 % (07/14 1130) SpO2 Pulse: 83 (07/14 1130) Vitals Value Taken Time BP 161/74 07/14/21 1130 Temp 36.6 C (97.9 F) 07/14/21 1040 Pulse 83 07/14/21 1130 Respirations 18 PER MINUTE 07/14/21 1130 SpO2 97 % 07/14/21 1130 ABP ART BP Post Anesthesia Evaluation Note Evaluation location: Pre/Post Patient participation: recovered; patient participated in evaluation Level of consciousness: alert Pain score: 4 Pain management: adequate Hydration: normovolemia Temperature: 36.0C - 38.4C Airway patency: adequate Perioperative Events Post-op nausea and vomiting: no PONV Postoperative Status Cardiovascular status: hemodynamically stable (BP within rage of recent baseline ) Respiratory status: spontaneous ventilation and supplemental oxygen (on 2L via N C, IS initiated prior to transfer to floor) Follow-up needed: other Perioperative Events Perioperative Event: No Emergency Case Activation: No ERING MACHINE FEEDER * Anesthesia Preprocedure Evaluation - Alphonso Caldwell MD - 07/14/2021 7:15 AM TENTERING MACHINE FEEDER Images from the original note were not included. Anesthesia Pre-Procedure Evaluation Name: Judith Sands : 1960 Age: 60 y.o. Sex: female Procedure Date: 07/14/2021 Procedure: Procedure(s): LAPAROSCOPIC CHOLECYSTECTOMY Physical Assessment Vital Signs (last filed in past 24 hours): BP: 163/80 (07/14 638) Temp: 36.8 C (98.3 F) (07/14 638) Pulse: 82 (07/14 638) Respirations: 21 PER MINUTE (07/14 638) SpO2: 94 % (07/14 638) Patient History Allergies Allergen Reactions Codeine NAUSEA ONLY Constipation Nsaids (Non-Steroidal Anti-Inflammatory Drug) SEE COMMENTS Had gastric byspass surgery and cannot take ibuprofen Current Medications Medication Directions acetaminophen (TYLENOL) 325 mg tablet Take two tablets by mouth every 6 hours as needed for Pain. atorvastatin (LIPITOR) 10 mg tablet atorvastatin 10 mg tablet TAKE 1 TABLET BY MOUTH EVERY DAY AUVI-Q 0.3 mg/0.3 mL auto-injector Inject 0.3 mg (1 Pen) into thigh if needed fo r anaphylactic reaction. May repeat in 5-15 minutes if needed. betamethasone dipropionate (DIPROLENE) 0.05 % topical ointment betamethasone dip ropionate 0.05 % topical ointment APPLY TOPICALLY TO THE AFFECTED AREA EVERY DAY NEEDED betamethasone dipropionate 0.05 % topical cream Apply a thin layer of cream to a ffected area once daily. May increase to twice daily if needed. Do not use more than 14 days. carboxymethylcellulos/glycerin (CLEAR EYES FOR DRY EYES OP) Place into or aroun d eye(s). cholecalciferol (VITAMIN D-3) 400 unit tab tablet Take by mouth daily. clobetasoL (TEMOVATE) 0.05 % topical ointment For flares: Apply clobetasol twice daily for 2-6 weeks until you feel better then taper to at night for 1 week then every other day for 1 week then twice weekly for maintenance estradioL (ESTRACE) 0.01 % (0.1 mg/g) vaginal cream APPLY 1 GRAM VAGINALLY TO VA GINAL OPENING AT NIGHT FOR 2 WEEKS THEN USE VAGINALLY 2 TIMES A WEEK fluconazole (DIFLUCAN) 150 mg tablet Take one tablet by mouth every 3 days for 3 doses. gabapentin (NEURONTIN) 100 mg capsule 100 mg every night at bedtime hydroCHLOROthiazide (HYDRODIURIL) 25 mg tablet Take 25 mg by mouth daily as need ed. lactobacillus rhamnosus (GG) (CULTURELLE) 10 billion cell capsule Take 1 capsule by mouth daily. mineral oil/hydrophilic petrolatum (AQUAPHOR) oint Apply topically to affected area daily. Doulafoidyuli-Ty-Fdwb-Minerals (MULTIPLE VITAMIN, WOMENS) tab Take by mouth. nitrofurantoin monohyd/m-cryst (MACROBID) 100 mg capsule Take one capsule by vanessa th every 12 hours. Take with food. nystatin (MYCOSTATIN) 100,000 unit/g topical ointment Apply twice daily for 2-4 weeks. oxyCODONE (ROXICODONE) 5 mg tablet Take one tablet by mouth every 4 hours as nee ded Medical History: Diagnosis Date Carpal tunnel syndrome on right Heart murmur History of neck pain s/p cervical disc surgery Hypertension Lichen sclerosus et atrophicus of the vulva 06/2020 biopsy confirmed Memory loss As per patient, family history of alzheimer's Obesity, Class II, BMI 35-39.9 Vulvar cancer (HCC) Surgical History: Procedure Laterality Date HX KAYLA AND BSO 2010 GASTRIC BYPASS 2010 [facility] CERVICAL DISC SURGERY 2013 3 discs fused together LEFT RADICAL VULVECTOMY WITH BILATERAL GROIN SENTINEL NODES BIOPSY Bilateral 04/24/2019 Performed by Matthew Booth MD at [facility] OR CARPAL TUNNEL RELEASE Right SECTION X3 HX HYSTERECTOMY Social History Tobacco Use Smoking status: Former Smoker Smokeless tobacco: Never Used Tobacco comment: as a teenager Vaping Use Vaping Use: Never used Substance Use Topics Alcohol use: Never Drug use: Never Review of Systems/Medical History PONV Screening: Female gender and Non-smoker No history of anesthetic complications No family history of anesthetic complications Airway - negative No TMJ Pulmonary Not a current smoker No indications/hx of asthma no COPD No recent URI No sleep apnea Cardiovascular Recent diagnostic studies: ECG EKG 04/17/19- SR, LVH Exercise tolerance: >4 METS (pt able to walk 4 blocks and climb 2 flights of stairs without CP, SOB) Hypertension (pt reports her typical BP is 130s/80s; 147/74 DOS), Palpitations No angina No indications/hx of PVD ( denies peripheral edema) No hyperlipidemia No orthopnea No dyspnea on exertion Syncope ( pt had a syncopal episode in 02/2019 and went for EF and was told s he had diverticulitis; no reoccurance since) GI/Hepatic/Renal No GERD, No hx of liver disease No renal disease Hx of gastric bypass s/p [facility] gastric bypass here with RUQ pain, elevat ed LFTs with concern for cholecystitis vs choledocolithiasis Neuro/Psych No seizures No CVA No headaches No indications/hx of neuropathy No indications/hx of dementia ( pt report memory loss, pt reports her PCP to ld her that her memory issues were stress related and she passed testing) Musculoskeletal Neck pain ( s/p cervical fusion. slight ROM issues ) Back pain ( intermittent sciatica) Arthritis Endocrine/Other No diabetes ( resolved after gastric bypass) No hypothyroidism No hyperthyroidism No anemia No blood dyscrasia Malignancy ( vulvar CA) Obesity ( BMI 36) Constitution - negative Physical Exam Airway Findings Mallampati: III TM distance: >3 FB Neck ROM: full Mouth opening: good Airway patency: adequate Comments: "stiffness" with extension, but no pain noted Dental Findings: Upper dentures and full Cardiovascular Findings: Rhythm: regular Rate: normal Other findings: murmur ( 1/6 LITTLE) No carotid bruit, no peripheral edema Pulmonary Findings: Breath sounds clear to auscultation. Abdominal Findings: Obese Neurological Findings: Negative Normal mental status Constitutional findings: No acute distress Well-developed Well-nourished Diagnostic Tests Hematology: Lab Results Component Value Date HGB 13.9 07/13/2021 HCT 42.6 07/13/2021 PLTCT 253 07/13/2021 WBC 7.5 07/13/2021 NEUT 59 05/12/2019 ANC 3.40 05/12/2019 ALC 1.60 05/12/2019 ROSETTE 9 05/12/2019 AMC 0.50 05/12/2019 EOSA 3 05/12/2019 ABC 0.10 05/12/2019 MCV 89.4 07/13/2021 MCH 29.2 07/13/2021 MCHC 32.6 07/13/2021 MPV 8.6 07/13/2021 RDW 13.6 07/13/2021 General Chemistry: Lab Results Component Value Date NA 142 07/13/2021 K 3.7 07/13/2021 CL 102 07/13/2021 CO2 29 07/13/2021 GAP 11 07/13/2021 BUN 10 07/13/2021 CR 0.69 07/13/2021 GLU 65 07/13/2021 CA 9.0 07/13/2021 ALBUMIN 3.5 07/13/2021 MG 1.6 07/13/2021 TOTBILI 2.0 07/13/2021 PO4 3.0 07/13/2021 Coagulation: Lab Results Component Value Date INR 1.1 07/13/2021 Anesthesia Plan ASA score: 3 Plan: general Induction method: intravenous NPO status: acceptable Informed Consent Anesthetic plan and risks discussed with patient. Use of blood products discussed with patient Blood Consent: consented Plan discussed with: anesthesiologist, PREP MANAGER and SRNA. Labs: CBC, BMP, T&S, DOS: T&C ARCHANA: none Consults: none ERING MACHINE FEEDER documented in this encounter Plan of Treatment Not on filedocumented as of this encounter Visit Diagnoses Not on filedocumented in this encounter Administered Medications Action Date Dose Rate Site Medication Order MAR Action 07/14/2021 8:43 AM TENTERING MACHINE FEEDER 4 mg dexamethasone (DECADRON) injection Given Intravenous, INTRA-PROCEDURE MED, Starting on Wed07/14/21 at 0843, Until Wed07/14/21 at 1044, Anesthesia Intra-op 07/14/2021 8:30 AM TENTERING MACHINE FEEDER 100 mcg fentaNYL citrate PF (SUBLIMAZE) Given injection Intravenous, INTRA-PROCEDURE MED, Starting on Wed07/14/21 at 0830, Until Wed07/14/21 at 1044, Anesthesia Intra-op 07/14/2021 10:23 AM TENTERING MACHINE FEEDER lactated ringers infusion Infusion 1,000 mL, 1,000 mL, Intravenous, at 20 Restarted mL/hr, CONTINUOUS, Starting on Wed07/14/21 at 0630, Until Wed07/14/21 at 1033, Pre-Op 1,000 mL 20 mL/hr Given - New Bag 07/14/2021 7:02 AM TENTERING MACHINE FEEDER 07/14/2021 8:30 AM TENTERING MACHINE FEEDER 100 mg lidocaine (PF) injection Given Intravenous, INTRA-PROCEDURE MED, Starting on Wed07/14/21 at 0830, Until Wed07/14/21 at 1044, Anesthesia Intra-op 07/14/2021 8:23 AM TENTERING MACHINE FEEDER 2 mg midazolam (VERSED) injection Given Intravenous, INTRA-PROCEDURE MED, Starting on Wed07/14/21 at 0823, Until Wed07/14/21 at 1044, Anesthesia Intra-op 07/14/2021 10:23 AM TENTERING MACHINE FEEDER 4 mg ondansetron (ZOFRAN) injection Given Intravenous, INTRA-PROCEDURE MED, Starting on Wed07/14/21 at 1023, Until Wed07/14/21 at 1044, Anesthesia Intra-op 07/14/2021 8:50 AM TENTERING MACHINE FEEDER 200 mcg phenylephrine (TAYLOR-SYNEPHRINE) injection Given syringe Intravenous, INTRA-PROCEDURE MED, Starting on Wed07/14/21 at 0850, Until Wed07/14/21 at 1044, Anesthesia Intra-op 100 mcg Given 07/14/2021 8:43 AM TENTERING MACHINE FEEDER 07/14/2021 8:30 AM TENTERING MACHINE FEEDER 200 mg propofol (DIPRIVAN) injection Given Intravenous, INTRA-PROCEDURE MED, Starting on Wed07/14/21 at 0830, Until Wed07/14/21 at 1044, Anesthesia Intra-op 07/14/2021 10:03 AM TENTERING MACHINE FEEDER 10 mg rocuronium injection Given Intravenous, INTRA-PROCEDURE MED, Starting on Wed07/14/21 at 0843, Until Wed07/14/21 at 1044, Anesthesia Intra-op 10 mg Given 07/14/2021 9:39 AM TENTERING MACHINE FEEDER 10 mg Given 07/14/2021 8:54 AM TENTERING MACHINE FEEDER 10 mg Given 07/14/2021 8:43 AM TENTERING MACHINE FEEDER 20 mg Given 07/14/2021 8:37 AM TENTERING MACHINE FEEDER 07/14/2021 8:30 AM TENTERING MACHINE FEEDER 100 mg succinylcholine (ANECTINE) injection Given Intravenous, INTRA-PROCEDURE MED, Starting on Wed07/14/21 at 0830, Until Wed07/14/21 at 1044, Anesthesia Intra-op 07/14/2021 10:30 AM TENTERING MACHINE FEEDER 200 mg sugammadex (BRIDION) injection Given Intravenous, INTRA-PROCEDURE MED, Starting on Wed07/14/21 at 1023, Until Wed07/14/21 at 1044, Anesthesia Intra-op 200 mg Given 07/14/2021 10:23 AM TENTERING MACHINE FEEDER documented in this encounter Additional Health Concerns Noted Time Assessment 07/14/2021 8:45 PM TENTERING MACHINE FEEDER A fall risk assessment has been complet ed for the patient 12/10/2020 12:49 PM CDT PHQ-2 Depression Total Score: 0 documented as of this encounter Care Teams Start Date End Date Business Project Manager Relationship Specialty 07/03/20 Lulu Lloyd MD PCP - [address] [address] 01/24/16 Emily Caba MA Maternal and Medicine documented as of this encounter
--- OUTSIDE RECORDS SUMMARY | 2021-07-19 11:05 | XMS REPORT | Clinical Summary ---
Author Author [facility] Organization [facility] Address Unknown Phone Unavailable Care Team Providers Care Electrical Cad Technician Name Role Phone Emily Caba MA Unavailable Unavailable Lulu Lloyd MD PCP Source Comments Some departments are not documenting in the electronic medical record. If you d o not see the information that you expected, contact Release of Information in [facility] Information Management department at [phone] for further assistan ce in locating additional records.[facility] Allergies Comments Active Allergy Reactions Severity Noted Date Constipation Codeine NAUSEA ONLY Low 04/17/2019 Had gastric byspass surgery and cannot take ibuprofen Nsaids (Non-Steroidal SEE COMMENTS Low 04/17/20 19 Anti-Inflammatory Drug) Medications End Date Status Medication Sig Dispensed Refills Start Date Active hydroCHLOROthiazide Take 25 mg by 0 (HYDRODIURIL) 25 mg mouth daily 8 tablet as needed. Active acetaminophen (TYLENOL) Take two 30 tablet 0 325 mg tablet tablets by 9 mouth every 6 hours as needed for Pain. Active betamethasone Apply a thin 15 g 0 dipropionate 0.05 % layer of 1 topical cream cream to affected area once daily. May increase to twice daily if needed. Do not use more than 14 days. Active betamethasone betamethasone 0 dipropionate (DIPROLENE) dipropionate 0.05 % topical ointment 0.05 % topical ointment APPLY TOPICALLY TO THE AFFECTED AREA EVERY DAY NEEDED Active atorvastatin (LIPITOR) 10 atorvastatin 0 mg tablet 10 mg tablet TAKE 1 TABLET BY MOUTH EVERY DAY Active gabapentin (NEURONTIN) 100 mg every 200 capsule 3 100 mg capsule night at 1 bedtime Active AUVI-Q 0.3 mg/0.3 mL Inject 0.3 mg 2 each 1 auto-injector (1 Pen) into 1 thigh if needed for anaphylactic reaction. May repeat in 5-15 minutes if needed. Active nitrofurantoin Take one 14 capsule 0 monohyd/m-cryst capsule by 1 (MACROBID) 100 mg capsule mouth every 12 hours. Take with food. Active nystatin (MYCOSTATIN) Apply twice 30 g 0 100,000 unit/g topical daily for 2-4 1 ointment weeks. Active clobetasoL (TEMOVATE) For flares: 60 g 1 05/19 0.05 % topical ointment Apply 1 clobetasol twice daily for 2-6 weeks until you feel better then taper to at night for 1 week then every other day for 1 week then twice weekly for maintenance Active fluconazole (DIFLUCAN) Take one 3 tablet 0 150 mg tablet tablet by 1 mouth every 3 days for 3 doses. Active estradioL (ESTRACE) 0.01 APPLY 1 GRAM 42.5 g 3 % (0.1 mg/g) vaginal VAGINALLY TO 1 cream VAGINAL OPENING AT NIGHT FOR 2 WEEKS THEN USE VAGINALLY 2 TIMES A WEEK Active Nojncgcjzrebl-Lj-Eecq-Min Take by 0 erals (MULTIPLE VITAMIN, mouth. WOMENS) tab Active carboxymethylcellulos/gly Place into 0 cerin (CLEAR EYES FOR DRY or around EYES OP) eye(s). Active cholecalciferol (VITAMIN Take by 0 D-3) 400 unit tab tablet mouth daily. Active mineral oil/hydrophilic Apply 0 petrolatum (AQUAPHOR) topically to oint affected area daily. Active lactobacillus rhamnosus Take 1 0 (GG) (CULTURELLE) 10 capsule by billion cell capsule mouth daily. Active oxyCODONE (ROXICODONE) 5 Take one 25 tablet 0 1 mg tablet tablet to 1 three tablets by mouth every 4 hours as needed Active polyethylene glycol 3350 Take one 12 each 0 1 (MIRALAX) 17 g packet packet by 1 mouth daily. 07/12/2021 Discontinued (Removed from P [facility] Med List) senna (SENOKOT) 8.6 mg Take one 90 tablet 3 tablet tablet by 9 mouth daily as needed. 07/12/2021 Discontinued (Removed from P TA Med List) trimethoprim/sulfamethoxa TK 2 TS PO 0 04/19 zole (BACTRIM DS) 160/800 BID 9 mg tablet 07/15/2021 Discontinued oxyCODONE (ROXICODONE) 5 Take one 40 tablet 0 1 mg tabletIndications: tablet by 9 Vulvar cancer (HCC), Pain mouth every 4 hours as needed 06/24/2021 Discontinued estradioL (ESTRACE) 0.01 Apply 1 gram 42.5 g 3 % (0.1 mg/g) vaginal vaginally and 1 cream 1 grams to the vaginal opening at night for 2 weeks then twice a week 07/12/2021 Discontinued (Removed from P TA Med List) trimethoprim/sulfamethoxa Take one 10 tablet 0 zole (BACTRIM DS) 160/800 tablet by 1 mg tablet mouth twice daily. Active Problems Problem Noted Date Abdominal pain 07/12/2021 Hives 02/15/2021 Overview: Formatting of this note might be differ ent from the original. From picking up cardboard boxes, resolv es within 10 minutes without tx. Often happens for unknown reasons witho ut tx. Tolerates meat, no tick bites. Toxic effect of venom 02/15/2021 Overview: Formatting of this note might be differ ent from the original. Fire ant - throat closing and local kailee ctions. Chronic rhinitis 02/15/2021 Overview: Formatting of this note might be differ ent from the original. May have a vasomotor component. Lichen sclerosus et atrophicus of the vulva 12/12/19 Overview: Formatting of this note might be differ ent from the original. Treated with betamethasone. Post-operative pain 04/24/2019 Vulvar cancer 04/06/2019 Cancer Staging: Pathologic stage from : FIGO Stage IB (pT1b, pN0, cM0) - Signed by Eve Rivas PA on 11/23/2019 Clinical: Unsigned Pathologic: Unsigned Encounters Care Team Description Date Type Specialty Garima Steve MD 07/15/2021 Anesthesia Event Compa Pierce, 07/15/2021 Prep for Case CaldwellAlphonso MD Armstrong, Renee B, CRNA 07/14/2021 Anesthesia Event Kendra Buchanan MD LAPAROSCOPIC CHOLECYSTECTOMY, INTRAOPERA TIVE CHOLANGIOGRAM 07/14/2021 Surgery Niraj Mascorro MD 07/14/2021 Hospital Encounter Niraj Mascorro MD Abdominal pain 07/12/2021 Hospital - Encounter 07/15/2021 07/11/2021 Hospital Radiology Encounter 07/11/2021 Hospital Radiology Encounter 07/11/2021 Travel Brandie Pineda MD 06/24/2021 Refill Obstetrics & Gyneco logy Brandie Pineda MD 06/09/2021 Orders Only Obstetrics & Gyneco logBrandie Briceño MD Results 06/06/2021 Telephone Obstetrics & Gyneco Brandie Longoria MD 06/03/2021 Orders Only Obstetrics & Gyneco logy Brandie Pineda MD 05/28/2021 Hospital Lab Encounter Brandie Pineda MD Lichen sclerosus et atrophicus of the vu lva (Primary Dx); Urgency of micturition; Allergic dermatitis due to other chemical product; Vaginal itching 05/28/2021 Office Visit Obstetrics & Gyneco logy 05/28/2021 Travel from Last 3 Months Surgical History Surgery Date Site/Laterality Comments HX KAYLA AND BSO 07/19/2009 - 07/18/2010 GASTRIC BYPASS 07/19/2010 - [facility] [employer] [facility] 07/18/2011 SECTION X3 CARPAL TUNNEL RELEASE Right CERVICAL DISC SURGERY 07/19/2013 - 3 discs fused to gether 07/18/2014 HX HYSTERECTOMY VULVECTOMY 04/24/2019 Groin/Bilateral LEFT RADICAL V ULVECTOMY WITH BILATERAL GROIN SENTINEL NODES BIOPSY performed by Matthew Arevalo MD at [facility] OR/Periop LAP CHOLECYSTECTOMY 07/14/2021 Abdomen/N/A LAPAROSCOP IC CHOLECYSTECTOMY, INTRAOPERATIVE CHOLANGIOGRAM performed by Kirt Buchanan MD at [facility] OR Medical History Medical History Date Comments Heart murmur Hypertension Memory loss As per patient, family hist ory of alzheimer's History of neck pain s/p cervical disc surgery Obesity, Class II, BMI 35-39.9 Carpal tunnel syndrome on right Vulvar cancer (HCC) Lichen sclerosus et atrophicus of the 06/2020 biopsy confirmed vulva Family History Medical History Relation Name Comments Arthritis Father Diabetes Father Heart Disease Father Kidney Disease Father Diabetes Mother Heart Disease Mother Stroke Mother Relation Name Status Comments Father Mother Social History Date Tobacco Use Types Packs/Day [...] Recorded COVID-19 Exposure Response 07/11/2021 10:00 PM ADVERTISING PRODUCTION MANAGER In the last month, have you been in contact with No / Unsure someone who was confirmed or suspected to have Coronavirus / COVID-19? Obstetrics History Term Pre Abrt (TAB) (SAB) (Ect) Mult Lvng Comments Grav Para 3 3 3 Date GA Total Labor Labor/2nd/3rd Weight Sex Delivery Anes PTL [facility] A1 A5 Name Clin Outcome Para Para Para Last Filed Vital Signs Reading Time Taken Comments Vital Sign 138/63 07/15/2021 2:28 AM ADVERTISING PRODUCTION MANAGER Blood Pressure 71 07/15/2021 8:52 AM ADVERTISING PRODUCTION MANAGER Pulse 36.7 C (98.1 F) 07/15/2021 8:52 AM ADVERTISING PRODUCTION MANAGER Temperature 16 05/28/2021 10:24 AM ADVERTISING PRODUCTION MANAGER Respiratory Rate 93% 07/15/2021 8:52 AM ADVERTISING PRODUCTION MANAGER Oxygen Saturation - - Inhaled Oxygen Concentration 99.3 kg (219 lb) 07/12/2021 1:15 AM ADVERTISING PRODUCTION MANAGER Weight 162.6 cm (5' 4") 07/12/2021 1:15 AM ADVERTISING PRODUCTION MANAGER Height 37.59 07/12/2021 1:15 AM ADVERTISING PRODUCTION MANAGER Body Mass Index Plan of Treatment Health Maintenance Due Date Last Done Comments HIV SCREENING 10/30/1975 DTAP/TDAP VACCINES (1 - 1978 Tdap) HEPATITIS C SCREENING 1978 PHYSICAL (COMPREHENSIVE) 1978 EXAM CERVICAL CANCER SCREENING 1981 BREAST CANCER SCREENING 2000 COLORECTAL CANCER 2010 SCREENING SHINGLES RECOMBINANT 2010 VACCINE (1 of 2) INFLUENZA VACCINE 02/16/2021 Goals Goal Patient Associated Recent Progress Patient-Stat Aut hor Goal Type Problems ed? Increase Physical Activity Exercise On track (07/15/2021 No Michelle Gómez, 12:50 AM ADVERTISING PRODUCTION MANAGER) RN Decrease pain Hospital On track (07/15/2021 No Hes Michelle bustos, 12:50 AM ADVERTISING PRODUCTION MANAGER) RN Get Adequate Sleep Lifestyle On track (07/15/2021 No Michelle Gómez, 12:50 AM ADVERTISING PRODUCTION MANAGER) property assessment monitor Comments Procedure Name Priority Date/Time Associated Diag nosis HC CBC,AUTOMATED Routine 07/15/2021 9:05 AM ADVERTISING PRODUCTION MANAGER HC MAGNESIUM Routine 07/15/2021 9:05 AM ADVERTISING PRODUCTION MANAGER HC COMPREHENSIVE Routine 07/15/2021 METABOLIC PANEL 9:05 AM ADVERTISING PRODUCTION MANAGER HC PHOSPHOROUS, SERUM Routine 07/15/2021 9:05 AM ADVERTISING PRODUCTION MANAGER HC LEV III SRG PTH, GROSS Routine 07/14/2021 Pain of upper abdomen & MICRO 10:07 AM ADVERTISING PRODUCTION MANAGER FLUORO MOBILE IN OR Routine 07/14/2021 10:00 AM ADVERTISING PRODUCTION MANAGER LAPAROSCOPIC 07/14/2021 Pain of upper abdom en CHOLECYSTECTOMY 8:24 AM ADVERTISING PRODUCTION MANAGER HC PT(INR) 07/14/2021 7:20 AM ADVERTISING PRODUCTION MANAGER HC CBC,AUTOMATED 07/14/2021 7:20 AM ADVERTISING PRODUCTION MANAGER HC PHOSPHOROUS, SERUM 07/14/2021 7:19 AM ADVERTISING PRODUCTION MANAGER HC MAGNESIUM 07/14/2021 7:19 AM ADVERTISING PRODUCTION MANAGER HC LIPASE Add on 07/14/2021 7:19 AM ADVERTISING PRODUCTION MANAGER HC COMPREHENSIVE Routine 07/14/2021 METABOLIC PANEL 7:19 AM ADVERTISING PRODUCTION MANAGER CONSULT VASCULAR ACCESS STAT 07/14/2021 TEAM 6:43 AM ADVERTISING PRODUCTION MANAGER HC PT(INR) Routine 07/13/2021 6:24 AM ADVERTISING PRODUCTION MANAGER HC PHOSPHOROUS, SERUM Routine 07/13/2021 6:24 AM ADVERTISING PRODUCTION MANAGER HC MAGNESIUM Routine 07/13/2021 6:24 AM ADVERTISING PRODUCTION MANAGER HC COMPREHENSIVE Routine 07/13/2021 METABOLIC PANEL 6:24 AM ADVERTISING PRODUCTION MANAGER HC CBC,AUTOMATED Routine 07/13/2021 6:24 AM ADVERTISING PRODUCTION MANAGER MRI MRCP STAT 07/12/2021 8:00 PM ADVERTISING PRODUCTION MANAGER HC LIPASE STAT 07/12/2021 4:55 AM ADVERTISING PRODUCTION MANAGER HC PHOSPHOROUS, SERUM Routine 07/12/2021 4:55 AM ADVERTISING PRODUCTION MANAGER HC MAGNESIUM Routine 07/12/2021 4:55 AM ADVERTISING PRODUCTION MANAGER HC COMPREHENSIVE Routine 07/12/2021 METABOLIC PANEL 4:55 AM ADVERTISING PRODUCTION MANAGER TYPE & CROSSMATCH STAT 07/12/2021 3:30 AM ADVERTISING PRODUCTION MANAGER HC PT(INR) Routine 07/12/2021 3:30 AM ADVERTISING PRODUCTION MANAGER HC CBC,AUTOMATED Routine 07/12/2021 3:30 AM ADVERTISING PRODUCTION MANAGER US ABDOMEN LIMITED Routine 07/12/2021 2:51 AM ADVERTISING PRODUCTION MANAGER TELEMETRY STRIPS-SCAN 07/12/2021 12:00 AM ADVERTISING PRODUCTION [address]NAGER CT CHEST/ABD/PEL EXTERNAL Routine 07/11/2021 IMAGING 7:[address] ABD/PEL EXTERNAL Routine 07/11/2021 IMAGING 12:00 AM ADVERTISING PRODUCTION MANAGER CULTURE-URINE Routine 05/28/2021 Urgency of mict urition W/SENSITIVITY 11:18 AM ADVERTISING PRODUCTION MANAGER CULTURE-FUNGAL,OTHER Routine 05/28/2021 Vaginal i tching 10:15 AM ADVERTISING PRODUCTION MANAGER from Last 3 Months Results * CBC (07/15/2021 9:05 AM ADVERTISING PRODUCTION MANAGER) Only the most recent of 4 results within the time period is included. White Blood 10.3 4.5 - 11.0 K/UL [facility] Cells RBC 4.60 4.0 - 5.0 M/UL [facility] Hemoglobin 13.9 12.0 - 15.0 GM/DL [facility] Hematocrit 40.7 36 - 45 % [facility] MCV 88.6 80 - 100 FL [facility] MCH 30.3 26 - 34 PG [facility] MCHC 34.3 32.0 - 36.0 G/DL [facility] RDW 13.4 11 - 15 % [facility] Platelet Count 284 150 - 400 K/UL [facility] MPV 7.8 7 - 11 FL [facility] Specimen Blood (substance) Performing Organization Address City/[facility]/ZIP Code P tatianna Number [facility] [address] [place] [address] * PHOSPHORUS (07/15/2021 9:05 AM ADVERTISING PRODUCTION MANAGER) Only the most recent of 4 results within the time period is included. Phosphorus 2.3 2.0 - 4.5 MG/DL [facility] Specimen Blood (substance) Performing Organization Address [facility] P tatianna Number [facility] [address] [place] [address] * MAGNESIUM (07/15/2021 9:05 AM ADVERTISING PRODUCTION MANAGER) Only the most recent of 4 results within the time period is included. Magnesium 1.8 1.6 - 2.6 mg/dL [facility] Specimen Blood (substance) Performing Organization Address [facility] P tatianna Number [facility] [address] [place] [address] * (ABNORMAL) COMPREHENSIVE METABOLIC PANEL (07/15/2021 9:05 AM ADVERTISING PRODUCTION MANAGER) Only the most recent of 4 results within the time period is included. Sodium 139 137 - 147 MMOL/L [facility] Potassium 3.6 3.5 - 5.1 MMOL/L [facility] Chloride 100 98 - 110 MMOL/L [facility] Glucose 135 (H) 70 - 100 MG/DL [facility] Blood Urea 7 7 - 25 MG/DL [facility] Nitrogen Creatinine 0.59 0.4 - 1.00 MG/DL [facility] Calcium 8.3 (L) 8.5 - 10.6 MG/DL [facility] Total Protein 5.7 (L) 6.0 - 8.0 G/DL [facility] Total Bilirubin 2.2 (H) 0.3 - 1.2 MG/DL [facility] Albumin 3.3 (L) 3.5 - 5.0 G/DL [facility] Alk Phosphatase 203 (H) 25 - 110 U/L [facility] AST (SGOT) 126 (H) 7 - 40 U/L [facility] CO2 29 21 - 30 MMOL/L [facility] ALT (SGPT) 187 (H) 7 - 56 U/L [facility] Anion Gap 10 3 - 12 [facility] eGFR >60Comment: eGFR calculated >60 mL/min [facility] using the CKD-EPIcr_R equation Specimen Blood (substance) Performing Organization Address City/State/ZIP Code P tatianna Number [facility] [address] [place] [address] * SURGICAL PATHOLOGY (07/14/2021 10:07 AM ADVERTISING PRODUCTION MANAGER) PATHOLOGY [facility] [email or web address] Department of Pathology and Laboratory Medicine [address] [place] [address] Surgical Pathology Office: [phone] SURGICAL PATHOLOGY REPORT NAME: JUDITH SANDS SURG PATH #: [id number] MR #: [id number] SPECIMEN CLASS: SR BILLING #: [id number] ALT ID #: LOCATION: DISCHARGED DATE OF PROCEDURE: 07/14/2021 AGE: 60 SEX: F DATE RECEIVED: 07/14/2021 : 1960 TIME RECEIVED: 10:31 PHYSICIAN: KENDRA BUCHANAN MD DATE OF REPORT: 07/15/2021 COPY TO: DATE OF PRINTIN07/15/2021 ############################## ############################## ############ Final Diagnosis: A. Gallbladder, cholecystectomy: Acute cholecystitis. Attestation: By this signature, I attest that I have personally formulated the final interpretation expressed in this report and that the above diagnosis is based upon my examination of the slides and/or other material indicated in this report. +++ +++ [place] /07/14/2021 ############################## ############################## ############ Material Received: A: gallbladder History: 60-year-old female with a history of gallstone pancreatitis and choledocholithiasis. Gross Description: A. Fixative: Formalin Labeled: "gallbladder" Dimensions: 8.4 x 4.2 x 2.6 cm Received: Disrupted, including the cystic duct margin Serosa: Smooth, diaz-pink with a roughened hepatic bed and multiple full-thickness defects ranging from 0.4-2.1 cm in greatest dimension Mucosa: Velvety, diaz-brown Calculi: No Wall thickness: 0.4 cm Cystic Duct Patent: Not present Lesions/Abnormalities: Described above Lymph Node Identified: No Cassette A1- Disability Benefits Specialist section of gallbladder body and fundus and a shave of the possible cystic duct at the resection margin (inked black). ([facility]) [facility]/07/14/2021 Specimen Tissue - Specimen from gallbladder (specimen) Performing Organization Address City/State/ZIP Code P tatianna Number [facility] [address] [place] [address] * FLUORO MOBILE IN OR (07/14/2021 10:00 AM ADVERTISING PRODUCTION MANAGER) Modality Anatomical Region Laterality Radiographic Imaging Specimen Narrative [facility] - 07/14/2021 10:01 AM ADVERTISING PRODUCTION MANAGER This order has been auto finalized and does not contain a result. Performing Organization Address City/State/ZIP Code P tatianna Number [facility] * PROTIME INR (PT) (07/14/2021 7:20 AM ADVERTISING PRODUCTION MANAGER) Only the most recent of 3 results within the time period is included. INR 1.1 0.8 - 1.2 [facility] Specimen Performing Organization Address City/[facility]/ZIP Code P tatianna Number [facility] [address] [place] [address] * (ABNORMAL) LIPASE (07/14/2021 7:19 AM ADVERTISING PRODUCTION MANAGER) Only the most recent of 2 results within the time period is included. Lipase 532 (H) 11 - 82 U/L [facility] Specimen Performing Organization Address City/[facility] Code P tatianna Number [facility] [address] [place] [address] * MRI MRCP (07/12/2021 8:00 PM ADVERTISING PRODUCTION MANAGER) Modality Anatomical Region Laterality Magnetic Resonance Abdomen Specimen Impressions [facility] RESULTS - 07/13/2021 7:12 AM ADVERTISING PRODUCTION MANAGER 1. Upper limits normal caliber of the bile ducts without choledocholithiasis. 2. Mild edema and inflammation surroun ding the pancreas compatible with acute interstitial edematous pancreatitis. Tiny cystic lesions throughout the tail of the pancreas likely tiny pseudocysts or side branch intraductal papillary mucinous neoplasms. 3. Gallbladder wall edema, thickening, and pericholecystic fluid with associated cholelithiasis. Findings are favored to be reactive to underlying pancreatitis rather than a primary acute cholecystitis. 4. Hepatic steatosis Finalized by Rubens Angulo MD on 07/13/2021 7:12 AM. Dictated by Rubens Angulo MD on 07/13/2021 7:03 AM. Narrative [facility] - 07/13/2021 7:12 AM ADVERTISING PRODUCTION MANAGER MRI ABDOMEN AND MRCP Clinical Indication: 60-year-old woman with suspected choledocholithiasis, pancreatitis. Technique: Multisequence and multiplanar MR imaging was obtained without the administration of gadolinium contrast material. MRCP imaging was also obtained. IV Contrast:None Bowel contrast: None Comparison: CT from outside facility 07/11/2021 FINDINGS: Lower Thorax: Unremarkable Liver and Biliary system: Mild geographic hepatic steatosis. Gallbladder wall thickening, edema, and small amount of pericholecystic fluid is present. Multiple gallstones present. Upper limits normal extrahepatic bile duct measuring up to 0.7 cm. No choledocholithiasis. Pancreas and Retroperitoneum: Mild edema and inflammation surrounding the pancreas. Normal caliber pancreatic duct. Tiny cystic lesions throughout the proximal pancreatic tail (series 4, image 23) measuring up to 0.3 cm. Spleen: Unremarkable. Adrenal Glands and Kidneys: No adrenal masses. No hydronephrosis. Left periportal cysts and other tiny bilateral T2 hyperintensities which are too small to characterize, but also likely cysts. Bowel, Mesentery and Peritoneal space: The visualized bowel measures mild colonic diverticulosis. Trace ascites. Aorta and Major Vessels: Unremarkable noncontrasted caliber of the abdominal aorta. Lymph nodes: Several upper limits normal periportal lymph nodes are likely reactive. No visualized upper retroperitoneal lymphadenopathy. Abdominal wall and Osseous Structures: Unremarkable. Procedure Note Rubens Angulo MD - 07/13/2021 MRI ABDOMEN AND MRCP Clinical Indication: 60-year-old woman with suspected choledocholithiasis, pancreatitis. Technique: Multisequence and multiplanar MR imaging was obtained without the administration of gadolinium contrast material. MRCP imaging was also obtained. IV Contrast:None Bowel contrast: None Comparison: CT from outside facility 07/11/2021 FINDINGS: Lower Thorax: Unremarkable Liver and Biliary system: Mild geographic hepatic steatosis. Gallbladder wall thickening, edema, and small amount of pericholecystic fluid is present. Multiple gallstones present. Upper limits normal extrahepatic bile duct measuring up to 0.7 cm. No choledocholithiasis. Pancreas and Retroperitoneum: Mild edema and inflammation surrounding the pancreas. Normal caliber pancreatic duct. Tiny cystic lesions throughout the proximal pancreatic tail (series 4, image 23) measuring up to 0.3 cm. Spleen: Unremarkable. Adrenal Glands and Kidneys: No adrenal masses. No hydronephrosis. Left periportal cysts and other tiny bilateral T2 hyperintensities which are too small to characterize, but also likely cysts. Bowel, Mesentery and Peritoneal space: The visualized bowel measures mild colonic diverticulosis. Trace ascites. Aorta and Major Vessels: Unremarkable noncontrasted caliber of the abdominal aorta. Lymph nodes: Several upper limits normal periportal lymph nodes are likely reactive. No visualized upper retroperitoneal lymphadenopathy. Abdominal wall and Osseous Structures: Unremarkable. IMPRESSION 1. Upper limits normal caliber of the b ile ducts without choledocholithiasis. 2. Mild edema and inflammation surround ing the pancreas compatible with acute interstitial edematous pancreatitis. Tiny cystic lesions throughout the tail of the pancreas likely tiny pseudocysts or side branch intraductal papillary mucinous neoplasms. 3. Gallbladder wall edema, thickening, and pericholecystic fluid with associated cholelithiasis. Findings are favored to be reactive to underlying pancreatitis rather than a primary acute cholecystitis. 4. Hepatic steatosis Finalized by Rubens Angulo MD on 07/13/2021 7:12 AM. Dictated by Rubens Angulo MD on 07/13/2021 7:03 AM. Performing Organization Address City/State/ZIP Code P tatianna Number [facility] * TYPE & CROSSMATCH (07/12/2021 3:30 AM ADVERTISING PRODUCTION MANAGER) Units Ordered 0 [facility] Crossmatch 07/15/2021,2359 [facility] Expires Record Check FOUND [facility] ABO/RH(D) O POS [facility] Antibody Screen NEG [facility] Electronic YES [facility] Crossmatch Specimen Performing Organization Address City/State/ZIP Code P tat[place]na Number [facility] [address] [place] [address] * US ABDOMEN LIMITED (07/12/2021 2:51 AM ADVERTISING PRODUCTION MANAGER) Modality Anatomical Region Laterality Ultrasound Abdomen Specimen Impressions [facility] RESULTS - 07/12/2021 8:56 AM ADVERTISING PRODUCTION MANAGER 1. Cholelithiasis with mild gallbladder wall edema and thickening, likely reactive to underlying acute pancreatitis. Sonographic Serrano sign is negative and acute cholecystitis is unlikely. 2. Review of outside CT demonstrates inf lammatory stranding surrounding the pancreas suggestive of acute pancreatitis. 3. Hepatic steatosis By my electronic signature, I attest that I have personally reviewed the images for this examination and formulated the interpretations and opinions expressed in this report Finalized by Rubens Angulo MD on 07/12/2021 8:56 AM. Dictated by Shaq Neff MD on 07/12/2021 8:36 AM. Narrative [facility]ULTS - 07/12/2021 8:56 AM ADVERTISING PRODUCTION MANAGER ABDOMINAL ULTRASOUND CLINICAL INDICATION: Female, 60 years old; evaluate for cholecystitis TECHNIQUE: Multiple grayscale and color Doppler ultrasound images were obtained of the abdomen. COMPARISON: CT abdomen pelvis July 11, 2021 FINDINGS: Liver and Biliary System: Homogeneous echotexture, upper limits of normal in size measuring 18.3 cm. Increased echogenicity. No discrete hepatic masses are identified. There is no intrahepatic bile duct dilatation. The main portal vein is antegrade at the pelon hepatis. The common duct measures 0.7 cm at the pelon hepatis which is upper limits of normal. The gallbladder is normal in size without pericholecystic fluid. Mild gallbladder wall edema and thickening. There is echogenic biliary sludge and small nonshadowing stones layering dependently to the gallbladder neck. Reportedly negative sonographic Serrano's sign. Pancreas: Obscured by bowel gas. Spleen: Normal in size measuring 12.0 cm. Peritoneal Space: No visualized abdominal ascites. Procedure Note Rubens Angulo MD - 07/12/2021 ABDOMINAL ULTRASOUND CLINICAL INDICATION: Female, 60 years old; evaluate for cholecystitis TECHNIQUE: Multiple grayscale and color Doppler ultrasound images were obtained of the abdomen. COMPARISON: CT abdomen pelvis July 11, 2021 FINDINGS: Liver and Biliary System: Homogeneous echotexture, upper limits of normal in size measuring 18.3 cm. Increased echogenicity. No discrete hepatic masses are identified. There is no intrahepatic bile duct dilatation. The main portal vein is antegrade at the pelon hepatis. The common duct measures 0.7 cm at the pelon hepatis which is upper limits of normal. The gallbladder is normal in size without pericholecystic fluid. Mild gallbladder wall edema and thickening. There is echogenic biliary sludge and small nonshadowing stones layering dependently to the gallbladder neck. Reportedly negative sonographic Serrano's sign. Pancreas: Obscured by bowel gas. Spleen: Normal in size measuring 12.0 cm. Peritoneal Space: No visualized abdominal ascites. IMPRESSION 1. Cholelithiasis with mild gallbladder wall edema and thickening, likely reactive to underlying acute pancreatitis. Sonographic Serrano sign is negative and acute cholecystitis is unlikely. 2. Review of outside CT demonstrates inf lammatory stranding surrounding the pancreas suggestive of acute pancreatitis. 3. Hepatic steatosis By my electronic signature, I attest that I have personally reviewed the images for this examination and formulated the interpretations and opinions expressed in this report Finalized by Rubens Angulo MD on 07/12/2021 8:56 AM. Dictated by Shaq Neff MD on 07/12/2021 8:36 AM. Performing Organization Address City/State/ZIP Code [place] Number [facility] RES[facility] * TELEMETRY STRIPS-SCAN (07/12/2021 12:00 AM ADVERTISING PRODUCTION MANAGER) Narrative 07/12/2021 12:00 AM ADVERTISING PRODUCTION MANAGER Ordered by an unspecified provider. * CT CHEST/ABD/PEL EXTERNAL IMAGING (07/11/2021 7:35 PM ADVERTISING PRODUCTION MANAGER) Modality Anatomical Region Laterality Computed Radiography Specimen Narrative Scheduling, Silent - 07/13/2021 4:57 AM ADVERTISING PRODUCTION MANAGER This order has been auto finalized and does not contain a result. * CT ABD/PEL EXTERNAL IMAGING (07/11/2021 12:00 AM ADVERTISING PRODUCTION MANAGER) Modality Anatomical Region Laterality Computed Radiography Specimen Narrative Scheduling, Silent - 07/12/2021 7:19 AM ADVERTISING PRODUCTION MANAGER This order has been auto finalized and does not contain a result. * (ABNORMAL) CULTURE-URINE W/SENSITIVITY (05/28/2021 11:18 AM ADVERTISING PRODUCTION MANAGER) Battery Name URINE CULTURE [facility] Report Status FINAL 05/29/2021 [facility] Specimen URINE MIDSTREAM [facility] Description Special No special requests [facility] Requests Culture >100,000 CFU/ml [facility] ESCHERICHIA COLI (A) Specimen Urine Antibiotic Method Susceptibility Organism Amikacin EMELIA (MCG/ML), INTERPRETATION, PHX <=8: Susceptible Escherichia coli Ampicillin/Sulbactam EMELIA (MCG/ML), INTERPRETATION, PHX 4/2: Susceptible Escherichia coli Ampicillin EMELIA (MCG/ML), INTERPRETATION, PHX <=4: Susceptible Escherichia coli Cefepime EMELIA (MCG/ML), INTERPRETATION, PHX <=1: Susceptible Escherichia coli Ceftriaxone EMELIA (MCG/ML), INTERPRETATION, PHX <=1: Susceptible Escherichia coli Gentamicin EMELIA (MCG/ML), INTERPRETATION, PHX <=2: Susceptible Escherichia coli Levofloxacin EMELIA (MCG/ML), INTERPRETATION, PHX <=0.5: Susceptible Escherichia coli Nitrofurantoin EMELIA (MCG/ML), INTERPRETATION, PHX 32: Susceptible Escherichia coli Piperacil/Tazobactam EMELIA (MCG/ML), INTERPRETATION, PHX <=2/4: Susceptible Escherichia coli Trimethsulfa EMELIA (MCG/ML), INTERPRETATION, PHX <=0.5/9.5: Susceptible Escherichia coli Oral Cephalosporins EMELIA (MCG/ML), INTERPRETATION, PHX 2: Susceptible Escherichia coli Performing Organization Address City/State/ZIP Code [place] Number [facility] [address] [place] [address] * (ABNORMAL) CULTURE-FUNGAL,OTHER (05/28/2021 10:15 AM ADVERTISING PRODUCTION MANAGER) Battery Name FUNGUS CULTURE [facility] Report Status FINAL 06/02/2021 [facility] Specimen SWAB VAGINAL [facility] Description Special No special requests [facility] Requests Culture Light growth [facility] HEIDI ALBICANS (A) Culture Two colonies [facility] HEIDI PARAPSILOSIS (A)Comment: Susceptibility intended for research use only. Specimen Swab Antibiotic Method Susceptibility Organism Micafungin EMELIA (MCG/ML), INTERPRETATION, YST <=0.008: Susceptible Heidi albicans Fluconazole EMELIA (MCG/ML), INTERPRETATION, YST 1.0: Susceptible Heidi albicans Micafungin EMELIA (MCG/ML), INTERPRETATION, YST 2.0: Susceptible Heidi parapsilosis Fluconazole EMELIA (MCG/ML), INTERPRETATION, YST 0.5: Susceptible Heidi parapsilosis Performing Organization Address City/State/ZIP Code [place] Number [facility] [address] [place] [address] from Last 3 Months Insurance Type Payer Benefit Subscriber ID Effective Phone Address Plan / Dates Group PPO [facility] [id number] 2021-P [phone] [address] [place] [address] [id number] 1 Advance Directives Patient Disability Benefits Specialist Explanation Type Date Recorded Advance 03/03/2019 8:51 PM Directive/DPOA Date Inactivated Comments Code Status Date Activated 07/15/2021 1:55 PM Full Code 07/12/2021 1:17 AM Provider has discussed Code Status No, more discussi on w/Patient or Family? needed 04/25/2019 3:29 PM Full Code 04/24/2019 6:35 PM Provider has discussed Code Status No, discussion no t w/Patient or Family? necessary based on Dx Care Teams Start Date End Date Electrical Cad Technician Relationship Specialty 07/03/20 Lulu Lloyd MD PCP - General [place] [address] [place] [address] 01/24/16 Emily Caba MA Maternal and Medicine
--- OUTSIDE RECORDS SUMMARY | 2021-07-19 11:05 | XMS REPORT | Encounter Summary ---
Author Author [facility] Organization [facility] Address Unknown Phone Unavailable Care Team Providers Care Window Shade Ring Coverer Name Role Phone Paulette Cabae JAMES Unavailable Unavailable Lulu Lloyd MD PCP Reason for Referral * Consult, Test & Treat (Discharge Pending) - Authorized Diagnoses / Procedures Referred By Contact Referred To Conta ct Specialty Diagnoses Gallstone pancreatitis Procedures APPOINTMENT REQUEST: ACUTE CARE SURGERY Niraj Mascorro MD [address] [place] [address] [facility] Surgery [address] [address] Trauma Surgery / General Surgery Referral ID Status Reason Start Date Expiration Visits Vi sits Date Requested Authorized [id number] Authorized 07/15/2021 07/15/2022 1 1 H BIN PACKER Reason for Visit * Auth/Cert Diagnoses / Procedures Referred By Contact Referred To Conta ct Specialty Diagnoses Abdominal pain abd pain, nausea Referral ID Status Reason Start Date Expiration Visits Vi sits Date Requested Authorized [id number] 1 1 Encounter Details Care Team Description Date Type Department Niraj Mascorro MD [address] [place] [address] Abdominal pain 07/12/2021 Hospital Patient Care Unit B H51: - Encounter Main [place], Main 07/15/[address] [place] [address] Social History Date Tobacco Use Types Packs/Day [...] Recorded COVID-19 Exposure Response 07/11/2021 10:00 PM CLOTH BIN PACKER In the last month, have you been in contact with No / Unsure someone who was confirmed or suspected to have Coronavirus / COVID-19? documented as of this encounter Last Filed Vital Signs Reading Time Taken Comments Vital Sign 138/63 07/15/2021 2:28 AM CLOTH BIN PACKER Blood Pressure 71 07/15/2021 8:52 AM CLOTH BIN PACKER Pulse 36.7 C (98.1 F) 07/15/2021 8:52 AM CLOTH BIN PACKER Temperature - - Respiratory Rate 93% 07/15/2021 8:52 AM CLOTH BIN PACKER Oxygen Saturation - - Inhaled Oxygen Concentration 99.3 kg (219 lb) 07/12/2021 1:15 AM CLOTH BIN PACKER Weight 162.6 cm (5' 4") 07/12/2021 1:15 AM CLOTH BIN PACKER Height 37.59 07/12/2021 1:15 AM CLOTH BIN PACKER Body Mass Index documented in this encounter Functional Status Date of Assessment Functional Status Response 07/15/2021 Does the patient have a hearing impairment: [...] impairment: No documented as of this encounter Discharge Summaries * Jensen Haley, - 07/15/2021 11:49 AM CLOTH BIN PACKER Discharge Summary Name: Judith Sands Date Of : 1960 Age: 60 years Admit date: 07/12/2021 Discharge date: 07/15/2021 11:49 AM Discharge Attending: Dr. Buchanan Discharge Summary Completed By: Jensen Haley DO Service: Surgery-Acute/Inpatient - [id number] Reason for hospitalization: Abdominal pain [R10.9] Primary Discharge Diagnosis: Abdominal pain [R10.9] Hospital Diagnoses: Hospital Problems Active Problems * (Principal) Abdominal pain gallstone pancreatitis hypocalcemia Significant Past Medical History Carpal tunnel syndrome on right Heart murmur History of neck pain Comment: s/p cervical disc surgery Hypertension Lichen sclerosus et atrophicus of the vulva Comment: biopsy confirmed Memory loss Comment: As per patient, family history of alzheimer's Obesity, Class II, BMI 35-39.9 Vulvar cancer (HCC) Allergies Codeine and Nsaids (non-steroidal anti-inflammatory drug) Brief Hospital Course The patient was admitted and the following issues were addressed during this hos pitalization: (with pertinent details including admission exam/imaging/labs). Judith Sands is a 60 y.o. female with PMH of HTN and obesity s/p Oswald en Y gastric bypass here with RUQ pain, elevated LFTs with gallstone pancreatitis s/p lap cholecystectomy with intraoperative cholangiogram 2/2 elevated t bili preop on 07/[address] Buchanan who was admitted on 07/12/[address] Niraj beltran. Her postoperative course was uncomplicated, though notable for gallstone p ancreatitis, hypocalcemia. At the time of discharge, her pain was controlled wit h PO pain medication, she was tolerating a diet without any nausea or vomiting, having bowel function, voiding spontaneously, and ambulating without difficulty. Items Needing Follow Up Pending items or areas that need to be addressed at follow up: None Pending Labs and Follow Up Radiology None Medications Current Discharge Medication List START taking these medications Details polyethylene glycol 3350 (MIRALAX) 17 g packet Take one packet by mouth daily. Qty: 12 each, Refills: 0 PRESCRIPTION TYPE: OTC CONTINUE these medications which have been CHANGED or REFILLED Details oxyCODONE (ROXICODONE) 5 mg tablet Take one tablet to three tablets by mouth ej ry 4 hours as needed Qty: 25 tablet, Refills: 0 PRESCRIPTION TYPE: Normal CONTINUE these medications which have NOT CHANGED Details acetaminophen (TYLENOL) 325 mg tablet Take two tablets by mouth every 6 hours as needed for Pain. Qty: 30 tablet, Refills: 0 PRESCRIPTION TYPE: Normal atorvastatin (LIPITOR) 10 mg tablet atorvastatin 10 mg tablet TAKE 1 TABLET BY MOUTH EVERY DAY PRESCRIPTION TYPE: Historical Med AUVI-Q 0.3 mg/0.3 mL auto-injector Inject 0.3 mg (1 Pen) into thigh if needed fo r anaphylactic reaction. May repeat in 5-15 minutes if needed. Qty: 2 each, Refills: 1 PRESCRIPTION TYPE: Normal betamethasone dipropionate (DIPROLENE) 0.05 % topical ointment betamethasone dip ropionate 0.05 % topical ointment APPLY TOPICALLY TO THE AFFECTED AREA EVERY DAY NEEDED PRESCRIPTION TYPE: Historical Med betamethasone dipropionate 0.05 % topical cream Apply a thin layer of cream to a ffected area once daily. May increase to twice daily if needed. Do not use more than 14 days. Qty: 15 g, Refills: 0 PRESCRIPTION TYPE: Normal carboxymethylcellulos/glycerin (CLEAR EYES FOR DRY EYES OP) Place into or aroun d eye(s). PRESCRIPTION TYPE: Historical Med cholecalciferol (VITAMIN D-3) 400 unit tab tablet Take by mouth daily. PRESCRIPTION TYPE: Historical Med clobetasoL (TEMOVATE) 0.05 % topical ointment For flares: Apply clobetasol twice daily for 2-6 weeks until you feel better then taper to at night for 1 week the n every other day for 1 week then twice weekly for maintenance Qty: 60 g, Refills: 1 PRESCRIPTION TYPE: Normal estradioL (ESTRACE) 0.01 % (0.1 mg/g) vaginal cream APPLY 1 GRAM VAGINALLY TO VA GINAL OPENING AT NIGHT FOR 2 WEEKS THEN USE VAGINALLY 2 TIMES A WEEK Qty: 42.5 g, Refills: 3 PRESCRIPTION TYPE: Normal Comments: ZERO refills remain on this prescription. Your patient is requesting a dvance approval of refills for this medication to PREVENT ANY MISSED DOSES fluconazole (DIFLUCAN) 150 mg tablet Take one tablet by mouth every 3 days for 3 doses. Qty: 3 tablet, Refills: 0 PRESCRIPTION TYPE: Normal gabapentin (NEURONTIN) 100 mg capsule 100 mg every night at bedtime Qty: 200 capsule, Refills: 3 PRESCRIPTION TYPE: Normal hydroCHLOROthiazide (HYDRODIURIL) 25 mg tablet Take 25 mg by mouth daily as need ed. PRESCRIPTION TYPE: Historical Med lactobacillus rhamnosus (GG) (CULTURELLE) 10 billion cell capsule Take 1 capsule by mouth daily. PRESCRIPTION TYPE: Historical Med mineral oil/hydrophilic petrolatum (AQUAPHOR) oint Apply topically to affected area daily. PRESCRIPTION TYPE: Historical Med Tyrgtcxnqabsk-Cv-Ckuc-Minerals (MULTIPLE VITAMIN, WOMENS) tab Take by mouth. PRESCRIPTION TYPE: Historical Med nitrofurantoin monohyd/m-cryst (MACROBID) 100 mg capsule Take one capsule by vanessa th every 12 hours. Take with food. Qty: 14 capsule, Refills: 0 PRESCRIPTION TYPE: Normal nystatin (MYCOSTATIN) 100,000 unit/g topical ointment Apply twice daily for 2-4 weeks. Qty: 30 g, Refills: 0 PRESCRIPTION TYPE: Normal Return Appointments and Scheduled Appointments Scheduled appointments: Jul 31, 2021 9:00 AM Postoperative visit with [facility] Surgery: [facility] (Surgery) [address] [place] [phone] Sep 02, 2021 1:00 PM Office visit with Brandie Pineda MD Obstetrics and Gynecology: [facility] ([facility] [address] [facility] [address] Consults, Procedures, Diagnostics, Micro, Pathology Consults: CONSULT GASTROENTEROLOGY PHYSICIAN Surgical Procedures & Dates: Procedure(s) (LRB): LAPAROSCOPIC CHOLECYSTECTOMY, INTRAOPERATIVE CHOLANGIOGRAM (N/A) 07/14 Significant Diagnostic Studies, Micro and Procedures: noted in brief hospital co urse Significant Pathology: noted in brief hospital course Discharge Disposition, Condition Patient Disposition: Home Condition at Discharge: Stable Code Status Code Status History Date Active Date Inactive Code Status Order ID 07/12/2021 [id number] 07/15/2021 1355 Full Code [id number] Damian Gomez MD Inpati ent 04/24/2019 1835 04/25/2019 1529 Full Code [id number] Lorraine Ngo MD In patient Patient Instructions COMPREHENSIVE METABOLIC PANEL Standing Status: Future Standing Exp. Date: 07/15/22 Release to patient Immediate CBC Standing Status: Future Standing Exp. Date: 07/15/22 Release to patient Immediate Regular Diet You have no dietary restriction. Please continue with a healthy balanced diet. Testing Not Required for Covid-19 Bathing Restrictions Do not submerge incision in water (bath, pools, hot tubs) Driving Restrictions No driving while taking pain medication. Lifting Restrictions Do not lift more than 10 pounds for 6 week(s). Incision Care Standard *Keep your incision clean and dry. *May shower 2 days following procedure. Okay for water and soap to run over inci edis, do not scrub incision. *Do not submerge incision in tub, pool, hot tub, or samano for 4 weeks. *Avoid applying deodorants, powders, creams, lotions, etc, to your incision for 4 weeks. *Usually there are no stitches to be removed. Steri-strips (strips of tape) will begin to fall off in 10-14 days. If they remain after 2 weeks, gently remove th em when they are damp after a shower. *If dermabond (skin glue) was used, then it will begin to fall off gradually on its own. *Your incision should gradually look better each day. If you notice unusual swel ling, redness, drainage, have increasing pain at the site, or have a fever great er than 100 degrees, notify your physician immediately. Your surgical suture underneath the skin will dissolve on their own over time Discharge Signs/Symptoms Standard Please contact your doctor if you have any of the following symptoms: temperature higher than 100.4 degrees F, uncontrolled pain, persistent nausea an d/or vomiting, difficulty breathing, chest pain, severe abdominal pain, headache , unable to urinate, unable to have bowel movement or drainage with a foul odor Questions About Your Stay For questions or concerns regarding your hospital stay, call [phone]. Discharging attending physician: ABE BUCHANAN [[id number]] Appointment Request: Acute Care Surgery Diagnosis: S/p lap amina Reason for outpatient appointment: Post-Op Date of Surgery: 07/14/2021 Which clinic? [facility] Time frame of appointment (provide range): 2-3 weeks Expected Discharge Date (or date of phone triage): 07/15/2021 Did the Acute Care Surgery Team complete an inpatient consult and/or surgical pr ocedure? Yes Name of Acute Care Surgeon (Enter as Auth Provider): Gordon May patient see a mid-level provider if no opening with a physician? Yes Testing needed prior to this outpatient appointment? No Are other appointments or ambulatory referrals needed? No Pager # of requesting provider if museum service scheduler has any questions: [phone] Additional Orders: Case Management, Supplies, Home Health Home Health/DME None Signed: Jensen Haley DO 07/16/2021 cc: Primary Care Physician: Lulu Lloyd Referring physicians: Unknown, Tessa, Additional provider(s): Did we miss something? If additional records are needed, please fax a request on office letterhead to [phone]. Please include the patient's name, date of b irth, fax number and type of information needed. Additional request can be made by email at [email or web address]. For general questions of information about electronic records sharing, call [phone]. H BIN PACKER Associated attestation - Abe Buchanan MD - 07/16/2021 2:41 PM CLOTH BIN PACKER ATTESTATION I personally observed the resident performing the E/M, discussed case with resid ent, and concur with resident documentation of history, physical assessment and treatment plan unless otherwise noted. Staff name: Abe Buchanan MD Date: 07/16/2021 * Johanna Denise RN - 07/14/2021 9:29 AM CLOTH BIN PACKER Case Management Progress Note NAME:Judith Sands : AGE: 60 y.o. ADMISSION DATE: 07/12/2021 DAYS ADMITTED: LOS: 2 days Todays Date: 07/14/2021 Plan Pt off unit to OR for lap amina at this time. NCM called pt's spouse Jorge (ph:) for assessment. No answer. NCM left message requesting return call. P er team, pt admitted with RUQ pain, elevated LFTs with gallstone pancreatitis. Per team, likely dc Wednesday with no needs. NCM will attempt assessment at a la ter time and continue to monitor for dc needs. Interventions Support Info or Referral Discharge Planning Medication Needs Financial Legal Other Disposition Expected Discharge Date 07/14/2021 1:00 PM Transportation Next Level of Care (Acute Psych discharges only) Discharge Disposition Selected Continued Care - Admitted Since 07/12/2021 No services have been selected for the patient. .ANDREA Kim, RN Department of Case Management Pgr: [phone] ph: [phone] H BIN PACKER documented in this encounter Medications at Time of Discharge Start Date End Date Medication Sig Dispensed Refills 04/25/2019 acetaminophen (TYLENOL) Take two 30 tablet 0 325 mg tablet tablets by mouth every 6 hours as needed for Pain. atorvastatin (LIPITOR) 10 atorvastatin 0 mg tablet 10 mg tablet TAKE 1 TABLET BY MOUTH EVERY DAY 01/24/2021 AUVI-Q 0.3 mg/0.3 mL Inject 0.3 mg 2 each 1 auto-injector (1 Pen) into thigh if needed for anaphylactic reaction. May repeat in 5-15 minutes if needed. betamethasone betamethasone 0 dipropionate (DIPROLENE) dipropionate 0.05 % topical ointment 0.05 % topical ointment APPLY TOPICALLY TO THE AFFECTED AREA EVERY DAY NEEDED 07/31/2020 betamethasone Apply a thin 15 g 0 dipropionate 0.05 % layer of topical cream cream to affected area once daily. May increase to twice daily if needed. Do not use more than 14 days. carboxymethylcellulos/gly Place into 0 cerin (CLEAR EYES FOR DRY or around EYES OP) eye(s). cholecalciferol (VITAMIN Take by 0 D-3) 400 unit tab tablet mouth daily. 05/28/2021 clobetasoL (TEMOVATE) For flares: 60 g 1 0.05 % topical ointment Apply clobetasol twice daily for 2-6 weeks until you feel better then taper to at night for 1 week then every other day for 1 week then twice weekly for maintenance 06/24/2021 estradioL (ESTRACE) 0.01 APPLY 1 GRAM 42.5 g 3 % (0.1 mg/g) vaginal VAGINALLY TO cream VAGINAL OPENING AT NIGHT FOR 2 WEEKS THEN USE VAGINALLY 2 TIMES A WEEK 06/09/2021 fluconazole (DIFLUCAN) Take one 3 tablet 0 150 mg tablet tablet by mouth every 3 days for 3 doses. 12/18/2020 gabapentin (NEURONTIN) 100 mg every 200 capsule 3 100 mg capsule night at bedtime 05/12/2018 hydroCHLOROthiazide Take 25 mg by 0 (HYDRODIURIL) 25 mg mouth daily tablet as needed. lactobacillus rhamnosus Take 1 0 (GG) (CULTURELLE) 10 capsule by billion cell capsule mouth daily. mineral oil/hydrophilic Apply 0 petrolatum (AQUAPHOR) topically to oint affected area daily. Dhffgdmdejaek-Tt-Cxds-Min Take by 0 erals (MULTIPLE VITAMIN, mouth. WOMENS) tab 01/24/2021 nitrofurantoin Take one 14 capsule 0 monohyd/m-cryst capsule by (MACROBID) 100 mg capsule mouth every 12 hours. Take with food. 01/24/2021 nystatin (MYCOSTATIN) Apply twice 30 g 0 100,000 unit/g topical daily for 2-4 ointment weeks. 07/15/2021 oxyCODONE (ROXICODONE) 5 Take one 25 tablet 0 mg tablet tablet to three tablets by mouth every 4 hours as needed 07/15/2021 polyethylene glycol 3350 Take one 12 each 0 (MIRALAX) 17 g packet packet by mouth daily. documented as of this encounter Ordered Prescriptions Start Date End Date Prescription Sig Dispensed Refills 07/15/2021 polyethylene glycol 3350 Take one 12 each 0 (MIRALAX) 17 g packet packet by mouth daily. 07/15/2021 oxyCODONE (ROXICODONE) 5 Take one 25 tablet 0 mg tablet tablet to three tablets by mouth every 4 hours as needed documented in this encounter Discharge Disposition Code Departure Means Destination Disposition Wheelchair Home or Self Care documented in this encounter Progress Notes * Jensen Haley DO - 07/15/2021 7:57 AM CLOTH BIN PACKER Daily Progress Note Today's Date: 07/15/2021 Name: Judith Sands Admission Date: 07/12/2021 (LOS: 3 days) Assessment: Judith Sands is a 60 y.o. female with PMH of HTN and obesity s/ p Oswald en Y gastric bypass here with RUQ pain, elevated LFTs with gallstone panc reatitis s/p lap cholecystectomy with intraoperative cholangiogram 2/2 elevated t bili preop Principal Problem: Abdominal pain gallstone pancreatitis Other Hospital Problems: Plan: - Patient doing well post operatively - T bili increased pre-operatively. Will follow results today - Patient could be discharged today pending CMP results - MMPC - PRN antiemetics Jensen Haley DO Pager: [phone] Buchanan Subjective: No acute events overnight. Pt states she is ready to go home. Tolerating diet. P ain controlled. + flatulence, - BM. Denies N/V Objective: BP: (138-163)/(58-88) Temp: [36.4 C (97.6 F)-37.1 C (98.7 F)] Pulse: [76-107] Respirations: [16 PER MINUTE-23 PER MINUTE] SpO2: [91 %-99 %] Body mass index is 37.59 kg/m. BMI Category: Obesity (30 to <40) Lab Results Component Value Date/Time NA 137 07/14/2021 07:19 AM K 3.9 07/14/2021 07:19 AM CL 98 07/14/2021 07:19 AM CO2 29 07/14/2021 07:19 AM BUN 6 (L) 07/14/2021 07:19 AM CR 0.64 07/14/2021 07:19 AM MG 1.9 07/14/2021 07:19 AM PO4 2.7 07/14/2021 07:19 AM Lab Results Component Value Date/Time HGB 15.2 (H) 07/14/2021 07:20 AM HCT 45.4 (H) 07/14/2021 07:20 AM WBC 8.6 07/14/2021 07:20 AM PLTCT 238 07/14/2021 07:20 AM INR 1.1 07/14/2021 07:20 AM No results found for: GLUPOC Physical Exam Physical Exam: Gen: NAD, nontoxic HEENT: NCAT, EOMI, anicteric sclerae CV: Normal rate, regular rhythm Pulm: Non-labored respirations on RA Abd: Soft, ND, mild epigastric TTP, no rebound or guarding, lap incisions c/d/i with dermabond in place, No significant erythema or drainage. Neuro: GCS 15, BLAKE spontaneously Psych: Normal affect Malnutrition Details: Active Wounds Wounds 07/14/21844 Surgical incision Abdomen (Active) 07/14/21844 Abdomen Wound Type: Surgical incision Pressure Injury Stages (For Pressure Injury Wound Type Only): Pressure Injury Present On Inpatient Admission: If this pressure injury is suspected to be device related, please select the dev ice:: Wound/Pressure Injury Orientation: Wound Location Comments: ZXWound Location: Wound Description (Comments): Wound Type:: Agree With My Assessment? Yes 07/14/21 1144 Wound Dressing Status Intact 07/14/212044 Wound Dressing and / or Treatment Dermabond 07/14/212044 Wound Drainage Amount None 07/14/212044 Wound Base Assessment Clean;Dry;Intact;Doctor Phillips 07/14/212044 Surrounding Skin Assessment Dry;Intact;Doctor Phillips 07/14/212044 Wound Site Closure Sutures;Wound Adhesive Bandage 07/14/212044 Number of days: 1 Jensen Haley DO Service Pager: # [phone] H BIN PACKER Associated attestation - Abe Buchanan MD - 07/15/2021 1:33 PM CLOTH BIN PACKER ATTESTATION I personally observed the resident performing the E/M, discussed case with resid ent, and concur with resident documentation of history, physical assessment and treatment plan unless otherwise noted. Staff name: Abe Buchanan MD Date: 07/15/2021 * Mike Leroy MD - 07/14/2021 1:48 PM CLOTH BIN PACKER Gastroenterology Progress Note Name: Judith Sands Today's Date: 07/14/2021 Assessment: Judith Sands is a 60 y.o. female with history of HTN, obesity s/p RYGB. Sh e presented to the hospital with complaints of right upper quadrant pain and was found to have gallstone pancreatitis. Acute pancreatitis, likely gallstone related Oswald-en-Y gastric bypass status -Presented with pain located in the right upper quadrant that was constant, achy and sharp that did not resolve for multiple hours -When she presented to the outside hospital she was noted to have a white blood cell count of 12.4, T bili of 2.1 and transaminases reportedly around 1350 and 6 54 AST and ALP respectively. Lipase >3000 -MRCP 07/12/21: Upper limits normal caliber of the bile ducts without choledocho lithiasis. Mild edema and inflammation surrounding the pancreas compatible with acute interstitial edematous pancreatitis. Tiny cystic lesions throughout the ta il of the pancreas likely tiny pseudocysts or side branch intraductal papillary mucinous neoplasms. Gallbladder wall edema, thickening, and pericholecystic flui d with associated cholelithiasis. Findings are favored to be reactive to underly ing pancreatitis rather than a primary acute cholecystitis. -S/p Lap Cholecystectomy 07/14/21 -LFTs improving 07/14 Recommendations: -Advance diet per surgery recommendations -Pain control per primary -Trend LFTs GI will sign off. Please page excavation laborer fellow with any additional questions or co ncerns Patient evaluated and discussed with Dr. Mariaa Arcos MD GI Fellow On [facility] Interval History Patient underwent cholecystectomy today. Post-op patient is doing well. Pain is controlled. She is tolerating diet. No F/C. No N/V. ROS: Constitutional: Denies fevers Cardiovascular: Denies chest pain Respiratory: Denies SOB, cough Gastrointestinal: See Interval History above Dermatologic: Denies rash Neurological: Denies dizziness, localized weakness, parasthesias, loss of sensa tion/function, or syncope Medications Scheduled Meds:ampicillin/sulbactam (UNASYN) 1.5 g in sodium chloride 0.9% (NS) 100 mL IVPB (MB+), 1.5 g, Intravenous, Q6H* enoxaparin (LOVENOX) syringe 40 mg, 40 mg, Subcutaneous, QDAY(21) gabapentin (NEURONTIN) capsule 100 mg, 100 mg, Oral, QHS hydroCHLOROthiazide (HYDRODIURIL) tablet 25 mg, 25 mg, Oral, QDAY pantoprazole DR (PROTONIX) tablet 40 mg, 40 mg, Oral, QDAY(21) Continuous Infusions: PRN and Respiratory Meds:acetaminophen Q4H PRN, fentaNYL citrate PF Q2H PRN, hyd rALAZINE Q6H PRN, ondansetron Q6H PRN OR ondansetron (ZOFRAN) IV Q6H PRN, ox yCODONE Q4H PRN, prochlorperazine Q6H PRN Physical Examination Vital Signs: Last Vital Signs: 24 Hour Ran ge BP: 163/80 (07/14 1142) Temp: 36.7 C (98.1 F) (07/14 1142) Pulse: 78 (07/14 1142) Respirations: 21 PER MINUTE (07/14 1142) SpO2: 97 % (07/14 1142) SpO2 Pulse: 78 (07/14 1142) BP: (145-163)/(60-90) Temp: [36.6 C (97.9 F)-37.1 C (98.7 F)] Pulse: [66-95] Respirations: [18 PER MINUTE-23 PER MINUTE] SpO2: [91 %-99 %] GEN: no acute distress SKIN: no jaundice HEENT: atraumatic, normocephalic CV: regular rhythm, no murmurs CHEST: clear in anterior worthy, good air entry ABDOMEN: soft, mild tenderness, non-distended. Lap incisions intact. EXTREMITIES: no edema PSYCH: alert, oriented, appropriate affect Medical History: Diagnosis Date Carpal tunnel syndrome on right Heart murmur History of neck pain s/p cervical disc surgery Hypertension Lichen sclerosus et atrophicus of the vulva 06/2020 biopsy confirmed Memory loss As per patient, family history of alzheimer's Obesity, Class II, BMI 35-39.9 Vulvar cancer (HCC) Surgical History: Procedure Laterality Date HX KAYLA AND BSO 2010 GASTRIC BYPASS 2010 Oswald en Y - [place] CERVICAL DISC SURGERY 2014 3 discs fused together LEFT RADICAL VULVECTOMY WITH BILATERAL GROIN SENTINEL NODES BIOPSY Bilateral Performed by Matthew Booth MD at [facility] OR CARPAL TUNNEL RELEASE Right SECTION X3 HX HYSTERECTOMY Social History Socioeconomic History Marital status: Spouse name: Not on file Number of children: Not on file Years of education: Not on file Highest education level: Not on file Occupational History Not on file Tobacco Use Smoking status: Former Smoker Smokeless tobacco: Never Used Tobacco comment: as a teenager Vaping Use Vaping Use: Never used Substance and Sexual Activity Alcohol use: Never Drug use: Never Sexual activity: Yes Partners: Male Other Topics Concern Not on file Social History Narrative Not on file Family History Problem Relation Age of Onset Diabetes Mother Heart Disease Mother Stroke Mother Diabetes Father Kidney Disease Father Heart Disease Father Arthritis Father Laboratory Hematology Recent Labs 07/12/21 0330 07/13/21 0624 07/14/21 0720 WBC 9.8 7.5 8.6 HGB 15.0 13.9 15.2* HCT 44.0 42.6 45.4* PLTCT 380 253 238 INR 1.0 1.1 1.1 MCV 87.3 89.4 89.0 Chemistry Recent Labs 07/12/21 0455 07/13/21 0624 07/14/21 0719 NA 141 142 137 K 4.5 3.7 3.9 CL 106 102 98 CO2 25 29 29 BUN 11 10 6* CR 0.70 0.69 0.64 GLU 122* 65* 82 CA 8.8 9.0 8.9 PO4 3.5 3.0 2.7 ALBUMIN 3.9 3.5 3.4* ALKPHOS 180* 152* 238* AST 608* 186* 259* ALT 474* 277* 280* TOTBILI 1.9* 2.0* 5.9* Radiology and other Diagnostics Review Pertinent radiology reviewed. ATTESTATION I personally performed the reyna portions of the E/M visit, discussed case with re sident and concur with resident documentation of history, physical exam, assessm ent, and treatment plan unless otherwise noted. Staff name: Mike Leroy MD Date: 07/14/2021 H BIN PACKER * Jensen Haley DO - 07/14/2021 7:18 AM CLOTH BIN PACKER Daily Progress Note Today's Date: 07/14/2021 Name: Judith Sands Admission Date: 07/12/2021 (LOS: 2 days) Assessment: Judith Sands is a 60 y.o. female with PMH of HTN and obesity s/ p Oswald en Y gastric bypass here with RUQ pain, elevated LFTs with gallstone panc reatitis Principal Problem: Abdominal pain gallstone pancreatitis Other Hospital Problems: Plan: - To the OR today for laparoscopic cholecystectomy PENDING CMP RESULTs - The risks, benefits, and alternatives of the procedure were discussed includin g pain, bleeding, infection, CBD injury, bile leak, damage to nearby structures, poor wound healing, need for additional procedures and the plan is to proceed w ith surgery. - All questions answered to the patient's satisfaction. Pt verbalizes understand ing. - Consent obtained and placed in chart. - NPO since midnight Jensen Haley DO Pager: [phone] Buchanan Subjective: No acute events overnight. Some pain with liquids and jello last night, mild mariela sea. No vomiting. Agrees with plan for surgery Objective: BP: (145-174)/(60-90) Temp: [36.6 C (97.9 F)-37.8 C (100 F)] Pulse: [63-82] Respirations: [18 PER MINUTE-21 PER MINUTE] SpO2: [93 %-96 %] Body mass index is 37.59 kg/m. BMI Category: Obesity (30 to <40) Lab Results Component Value Date/Time NA 142 07/13/2021 06:24 AM K 3.7 07/13/2021 06:24 AM CL 102 07/13/2021 06:24 AM CO2 29 07/13/2021 06:24 AM BUN 10 07/13/2021 06:24 AM CR 0.69 07/13/2021 06:24 AM MG 1.6 07/13/2021 06:24 AM PO4 3.0 07/13/2021 06:24 AM Lab Results Component Value Date/Time HGB 13.9 07/13/2021 06:24 AM HCT 42.6 07/13/2021 06:24 AM WBC 7.5 07/13/2021 06:24 AM PLTCT 253 07/13/2021 06:24 AM INR 1.1 07/13/2021 06:24 AM No results found for: GLUPOC Physical Exam Physical Exam: Gen: NAD, nontoxic HEENT: NCAT, EOMI, anicteric sclerae CV: Normal rate, regular rhythm Pulm: Non-labored respirations on RA Abd: Soft, ND, mild epigastric TTP, no rebound or guarding Neuro: GCS 15, BLAKE spontaneously Psych: Normal affect Malnutrition Details: Active Wounds Jensen Haley DO Service Pager: # [phone] H BIN PACKER Associated attestation - Abe Buchanan MD - 07/15/2021 1:00 PM CLOTH BIN PACKER I personally interviewed and examined the patient. I have reviewed the history, physical, impression and plan as outlined by the resident and concur unless oth erwise noted. My impression and plan, which is unrelated to any procedure which may have been performed is: OR today for lap vs open cholecystectomy. Risks including infection, bleeding, a nd damage to nearby structures was discussed and she stated she understood and a greed with the plan of care. With her elevated bilirubin, will plan for an IOC a s well. Consent in chart. Abe Buchanan MD * Aliyah Curiel, OT - 07/14/2021 6:39 AM CLOTH BIN PACKER THERAPY NOTE Name: Judith Sands : 1960 Age : 60 y.o. Admission Date: 07/12/2021 LOS: 2 days PT/OT orders received. Therapies will follow-up 07/15 as Pt in OR at this time Therapist: Aliyah Curiel OT Date: 07/14/2021 H BIN PACKER * Jensen Haley DO - 07/13/2021 9:16 AM CLOTH BIN PACKER Daily Progress Note Today's Date: 07/13/2021 Name: Judith Sands Admission Date: 07/12/2021 (LOS: 1 day) Assessment: Judith Sands is a 60 y.o. female with PMH of HTN and obesity s/ p Oswald en Y gastric bypass here with RUQ pain, elevated LFTs with gallstone panc reatitis Principal Problem: Abdominal pain gallstone pancreatitis Other Hospital Problems: Plan: - MRCP shows no stone currently in duct. Patients pain and exam is improving. Pl an to proceed to OR tomorrow for laparoscopic cholecystectomy -Neuro: MMPC -Cardio: No active issues, HCTZ -Resp: Encourage IS use. -GI: PRN antiemetics, PPI, CLD, NPO at midnight tonight for OR tomorrow -Renal/: No Active Issues -Heme/ID: No active issues -Prophylaxis: Lovenox. PT/OT, ambulate TID or as much as tolerated. -FEN: Daily labs, replace lytes PRN -Dispo: Continue inpatient care Jensen Haley DO Pager: [phone] Mascorro Subjective: No acute events overnight. Pain improving. Having bowel function. Denies N/V. Ag daniela to proceed to OR Objective: BP: (125-158)/(70-83) Temp: [36.7 C (98.1 F)-37.8 C (100 F)] Pulse: [52-72] Respirations: [15 PER MINUTE-18 PER MINUTE] SpO2: [92 %-95 %] Body mass index is 37.59 kg/m. BMI Category: Obesity (30 to <40) Lab Results Component Value Date/Time NA 142 07/13/2021 06:24 AM K 3.7 07/13/2021 06:24 AM CL 102 07/13/2021 06:24 AM CO2 29 07/13/2021 06:24 AM BUN 10 07/13/2021 06:24 AM CR 0.69 07/13/2021 06:24 AM MG 1.6 07/13/2021 06:24 AM PO4 3.0 07/13/2021 06:24 AM Lab Results Component Value Date/Time HGB 13.9 07/13/2021 06:24 AM HCT 42.6 07/13/2021 06:24 AM WBC 7.5 07/13/2021 06:24 AM PLTCT 253 07/13/2021 06:24 AM INR 1.1 07/13/2021 06:24 AM No results found for: GLUPOC Physical Exam Physical Exam: Gen: NAD, nontoxic HEENT: NCAT, EOMI, anicteric sclerae CV: Normal rate, regular rhythm Pulm: Non-labored respirations on RA Abd: Soft, ND, mild epigastric TTP, no rebound or guarding Neuro: GCS 15, BLAKE spontaneously Psych: Normal affect Malnutrition Details: Active Wounds Jensen Haley DO Service Pager: # [phone] H BIN PACKER * Rosa Isela Fernandez RT - 07/12/2021 6:13 AM CLOTH BIN PACKER RT Adult Assessment Note NAME:Judith Sands :1960 AGE: 60 y.o. ADMISSION DATE: 07/12/2021 DAYS ADMITTED: LOS: 0 days RT Treatment Plan: Criteria not met Additional Comments: Impressions of the patient: pt resting in bed. A&O Intervention(s)/outcome(s): n/a Patient education that was completed: n/a Recommendations to the care team: none Vital Signs: Pulse: 61 RR: 16 PER MINUTE SpO2: 93 % O2 Device: Liter Flow: O2%: (21) Breath Sounds: Clear (Implies normal) Respiratory Effort: Non-Labored H BIN PACKER documented in this encounter H&P Notes * Damian Gomez MD - 07/12/2021 2:53 AM CLOTH BIN PACKER Acute Care Surgery History and Physical Patient: Judith Sands, [id number] Admission Date: 07/12/2021, LOS: 0 days Admission Diagnosis: Abdominal pain [R10.9] Date of Service: July 12, 2021 ASSESSMENT: Judith Sands is a 60 y.o. female with PMH of HTN and obesity s/p Oswald en Y gastric bypass here with RUQ pain, elevated LFTs with concern for cholecystitis vs choledocolithiasis. PLAN: - Admit to [facility] - Will obtain formal RUQ US - Consult GI for concern for choledocolithiasis in setting of previous RnY gastr ic bypass, appreciate recs - Daily PPI - MMPC - NPO - Daily labs, including LFTs. Elevated on admission, will continue to trend - DVT ppx: SCDs and lovenox Damian Gomez MD Service Pager: [phone] HPI: Judith Sands is a 60 y.o. female PMH of HTN and obesity s/p Oswald en Y gastric bypass here with RUQ pain, elevated LFTs with concern for cholecystitis vs choledocolithiasis. She reports onset of pain while [place]. She notes that it was a constant, achy and sharp type pain that di d not resolve until hours later and then returned. She endorses some nausea duri ng that time, no vomiting. She continues to have normal bowel function. Has not been able to tolerate PO intake due to the nausea and pain. She reports one prev ious episode of this pain last month. She has not had a previous EGD. OSH labs: WBC 12.4, Tbili 2.1, LFTs 1350 & 650. Medical History: Diagnosis Date Carpal tunnel syndrome on right Heart murmur History of neck pain s/p cervical disc surgery Hypertension Lichen sclerosus et atrophicus of the vulva 06/2020 biopsy confirmed Memory loss As per patient, family history of alzheimer's Obesity, Class II, BMI 35-39.9 Vulvar cancer (HCC) Surgical History: Procedure Laterality Date HX KAYLA AND BSO 2010 GASTRIC BYPASS 2010 Oswald en Y - [facility] CERVICAL DISC SURGERY 2013 3 discs fused together LEFT RADICAL VULVECTOMY WITH BILATERAL GROIN SENTINEL NODES BIOPSY Bilateral 04/24/2019 Performed by Matthew Booth MD at [facility] OR CARPAL TUNNEL RELEASE Right SECTION X3 HX HYSTERECTOMY Family History Problem Relation Age of Onset Diabetes Mother Heart Disease Mother Stroke Mother Diabetes Father Kidney Disease Father Heart Disease Father Arthritis Father Social History Tobacco Use Smoking status: Former Smoker Smokeless tobacco: Never Used Tobacco comment: as a teenager Substance Use Topics Alcohol use: Never Your Current Medications: Instructions acetaminophen (TYLENOL) 325 mg tablet Take two tablets by mouth every 6 hours a s needed for Pain. atorvastatin (LIPITOR) 10 mg tablet atorvastatin 10 mg tablet TAKE 1 TABLET BY MOUTH EVERY DAY AUVI-Q 0.3 mg/0.3 mL auto-injector Inject 0.3 mg (1 Pen) into thigh if needed f or anaphylactic reaction. May repeat in 5-15 minutes if needed. betamethasone dipropionate (DIPROLENE) 0.05 % topical ointment betamethasone di propionate 0.05 % topical ointment APPLY TOPICALLY TO THE AFFECTED AREA EVERY DAY NEEDED betamethasone dipropionate 0.05 % topical cream Apply a thin layer of cream to affected area once daily. May increase to twice daily if needed. Do not use more than 14 days. clobetasoL (TEMOVATE) 0.05 % topical ointment For flares: Apply clobetasol twic e daily for 2-6 weeks until you feel better then taper to at night for 1 week th en every other day for 1 week then twice weekly for maintenance estradioL (ESTRACE) 0.01 % (0.1 mg/g) vaginal cream APPLY 1 GRAM VAGINALLY TO V AGINAL OPENING AT NIGHT FOR 2 WEEKS THEN USE VAGINALLY 2 TIMES A WEEK fluconazole (DIFLUCAN) 150 mg tablet Take one tablet by mouth every 3 days for 3 doses. gabapentin (NEURONTIN) 100 mg capsule 100 mg every night at bedtime hydroCHLOROthiazide (HYDRODIURIL) 25 mg tablet Take 25 mg by mouth daily as nee ded. nitrofurantoin monohyd/m-cryst (MACROBID) 100 mg capsule Take one capsule by mo uth every 12 hours. Take with food. nystatin (MYCOSTATIN) 100,000 unit/g topical ointment Apply twice daily for 2-4 weeks. oxyCODONE (ROXICODONE) 5 mg tablet Take one tablet by mouth every 4 hours as ne eded senna (SENOKOT) 8.6 mg tablet Take one tablet by mouth daily as needed. trimethoprim/sulfamethoxazole (BACTRIM DS) 160/800 mg tablet Take one tablet by mouth twice daily. trimethoprim/sulfamethoxazole (BACTRIM DS) 160/800 mg tablet TK 2 TS PO BID Review of Systems All other systems reviewed and are negative. Vitals: BP: (188)/(92) Temp: [36.7 C (98.1 F)] Pulse: [58] Respirations: [16 PER MINUTE] SpO2: [95 %] Body mass index is 37.59 kg/m. BMI Category: Obesity (30 to <40) Physical Exam Constitutional: Appearance: Normal appearance. HENT: Head: Normocephalic and atraumatic. Mouth/Throat: Mouth: Mucous membranes are moist. Eyes: Extraocular Movements: Extraocular movements intact. Cardiovascular: Rate and Rhythm: Normal rate. Pulmonary: Effort: Pulmonary effort is normal. No respiratory distress. Abdominal: General: There is no distension. Palpations: Abdomen is soft. Tenderness: There is abdominal tenderness (periincisoinal ). There is no guar ding or rebound. Musculoskeletal: General: Normal range of motion. Cervical back: Neck supple. Skin: General: Skin is warm and dry. Capillary Refill: Capillary refill takes less than 2 seconds. Coloration: Skin is not jaundiced. Neurological: Mental Status: She is alert. Lab/Radiology/Other Diagnostic Tests: Lab Results Component Value Date/Time NA 137 05/12/2019 11:06 AM K 5.0 05/12/2019 11:06 AM CL 101 05/12/2019 11:06 AM CO2 24 05/12/2019 11:06 AM BUN 15 05/12/2019 11:06 AM CR 1.00 05/12/2019 11:06 AM CA 10.0 05/12/2019 11:06 AM Lab Results Component Value Date/Time HGB 15.4 (H) 05/12/2019 11:06 AM HCT 45.6 (H) 05/12/2019 11:06 AM WBC 5.7 05/12/2019 11:06 AM PLTCT 534 (H) 05/12/2019 11:06 AM No results found for: GLUPOC US ABDOMEN LIMITED (Results Pending) Malnutrition Details: Active Wounds H BIN PACKER Associated attestation - Niraj Mascorro MD - 07/13/2021 9:55 AM CLOTH BIN PACKER ATTESTATION I personally performed the reyna portions of the E/M visit, discussed case with re sident and concur with resident documentation of history, physical exam, assessm ent, and treatment plan unless otherwise noted. Staff name: Niraj Mascorro MD Date: 07/13/2021 documented in this encounter Consult Notes * Mike Leroy MD - 07/12/2021 1:33 PM CLOTH BIN PACKER Associated Order(s): CONSULT GASTROENTEROLOGY PHYSICIAN Gastroenterology/Hepatology Consult Note Patient Name:Judith Sands Admission Date: 07/12/2021 1:14 AM Principal Problem: Abdominal pain Consult for: RUQ pain, elevated transaminases History of Present Illness/Subjective: Judith Sands is a 60 y.o. female with history of HTN, obesity s/p RYGB. Sh e presented to the hospital with complaints of right upper quadrant pain that st arted on July 11 at around 11:45 AM. She reports that she had similar pain about 3 weeks ago which subsided but this time around there was no improvement i n symptoms. She reports that the pain was located in the right upper quadrant t hat was constant, achy and sharp that did not resolve for multiple hours. She d enies any specific aggravating or relieving factors. She reports that she was n auseated. She reports that she did have a few episodes of vomiting up until thi s point. She denies any previous history of gallstones or cholecystectomy. When she pres ented to the outside hospital she was noted to have a white blood cell count of 12.4, T bili of 2.1 and transaminases reportedly around 1350 and 654 AST and ALP respectively. Surgical team was consulted here for admission. A right upper q uadrant ultrasound was obtained which showed cholelithiasis with mild gallbladde r wall edema and thickening. In addition the radiologist also reviewed the outs lizzy CT that showed fat stranding around the pancreas consistent with pancreatiti s. A lipase that was checked in the hospital was greater than 3000. Patient denies any history of alcohol intake or previous history of pancreatitis . ROS: All systems reviewed were negative except otherwise specified in the HPI Assessment/ Plan: Acute pancreatitis, likely gallstone related Oswald-en-Y gastric bypass status At this time, ideally we would have proceeded with endoscopic ultrasound and ERC P. However, the patient's altered anatomy from her Oswald-en-Y gastric bypass grace es this a little more complicated. As a result we recommend initially obtaining MRCP to rule out any biliary calculi. If this is present, she would likely need an edge ERCP on Wednesday. If there is no intraductal calculi noted, she would l ikely not need any ERCP and we can proceed with cholecystectomy per surgical tea m's decision. Other than that, the regular management for pancreatitis includin g IV analgesia, IV fluids recommended. If there is worsening of the epigastric pain Recommendations: Obtain MRCP to rule out choledocholithiasis If MRCP is concerning for choledocholithiasis, will likely need an ERCP on If not, okay to proceed with cholecystectomy and surgical evaluation as recommen ded by surgical team. Symptomatic management for acute pancreatitis including IV fluids, IV analgesia per primary team Please call GI fellow in case of any questions Patient was seen and plan was discussed with Dr. Mariaa Schuler MD Fellow, Gastroenterology & Hepatology PMH: Medical History: Diagnosis Date Carpal tunnel syndrome on right Heart murmur History of neck pain s/p cervical disc surgery Hypertension Lichen sclerosus et atrophicus of the vulva 06/2020 biopsy confirmed Memory loss As per patient, family history of alzheimer's Obesity, Class II, BMI 35-39.9 Vulvar cancer (HCC) Current medications: No current facility-administered medications on file prior to encounter. Current Outpatient Medications on File Prior to Encounter Medication Sig Dispense Refill acetaminophen (TYLENOL) 325 mg tablet Take two tablets by mouth every 6 hours a s needed for Pain. 30 tablet 0 atorvastatin (LIPITOR) 10 mg tablet atorvastatin 10 mg tablet TAKE 1 TABLET BY MOUTH EVERY DAY AUVI-Q 0.3 mg/0.3 mL auto-injector Inject 0.3 mg (1 Pen) into thigh if needed f or anaphylactic reaction. May repeat in 5-15 minutes if needed. 2 each 1 betamethasone dipropionate (DIPROLENE) 0.05 % topical ointment betamethasone di propionate 0.05 % topical ointment APPLY TOPICALLY TO THE AFFECTED AREA EVERY DAY NEEDED betamethasone dipropionate 0.05 % topical cream Apply a thin layer of cream to affected area once daily. May increase to twice daily if needed. Do not use more than 14 days. 15 g 0 carboxymethylcellulos/glycerin (CLEAR EYES FOR DRY EYES OP) Place into or arou nd eye(s). cholecalciferol (VITAMIN D-3) 400 unit tab tablet Take by mouth daily. clobetasoL (TEMOVATE) 0.05 % topical ointment For flares: Apply clobetasol twic e daily for 2-6 weeks until you feel better then taper to at night for 1 week th en every other day for 1 week then twice weekly for maintenance 60 g 1 estradioL (ESTRACE) 0.01 % (0.1 mg/g) vaginal cream APPLY 1 GRAM VAGINALLY TO V AGINAL OPENING AT NIGHT FOR 2 WEEKS THEN USE VAGINALLY 2 TIMES A WEEK 42.5 g 3 fluconazole (DIFLUCAN) 150 mg tablet Take one tablet by mouth every 3 days for 3 doses. 3 tablet 0 gabapentin (NEURONTIN) 100 mg capsule 100 mg every night at bedtime 200 capsule 3 hydroCHLOROthiazide (HYDRODIURIL) 25 mg tablet Take 25 mg by mouth daily as nee ded. lactobacillus rhamnosus (GG) (CULTURELLE) 10 billion cell capsule Take 1 capsul e by mouth daily. mineral oil/hydrophilic petrolatum (AQUAPHOR) oint Apply topically to affected area daily. Nuisbdjuopvlg-Hb-Zjhh-Minerals (MULTIPLE VITAMIN, WOMENS) tab Take by mouth. nitrofurantoin monohyd/m-cryst (MACROBID) 100 mg capsule Take one capsule by mo uth every 12 hours. Take with food. 14 capsule 0 nystatin (MYCOSTATIN) 100,000 unit/g topical ointment Apply twice daily for 2-4 weeks. 30 g 0 oxyCODONE (ROXICODONE) 5 mg tablet Take one tablet by mouth every 4 hours as ne eded 40 tablet 0 senna (SENOKOT) 8.6 mg tablet Take one tablet by mouth daily as needed. 90 tabl et 3 trimethoprim/sulfamethoxazole (BACTRIM DS) 160/800 mg tablet Take one tablet by mouth twice daily. 10 tablet 0 trimethoprim/sulfamethoxazole (BACTRIM DS) 160/800 mg tablet TK 2 TS PO BID 0 PSH: Surgical History: Procedure Laterality Date HX KAYLA AND BSO 2010 GASTRIC BYPASS 2010 Oswald en Y [facility] CERVICAL DISC SURGERY 2013 3 discs fused together LEFT RADICAL VULVECTOMY WITH BILATERAL GROIN SENTINEL NODES BIOPSY Bilateral Performed by Matthew Booth MD at [facility] OR CARPAL TUNNEL RELEASE Right SECTION X3 HX HYSTERECTOMY SH: Social History Socioeconomic History Marital status: Occupational History Tobacco Use Smoking status: Former Smoker Smokeless tobacco: Never Used Tobacco comment: as a teenager Vaping Use Vaping Use: Never used Substance and Sexual Activity Alcohol use: Never Drug use: Never Sexual activity: Yes Partners: Male FH: Family History Problem Relation Age of Onset Diabetes Mother Heart Disease Mother Stroke Mother Diabetes Father Kidney Disease Father Heart Disease Father Arthritis Father Physical Exam: Vitals: 07/12/21 0115 07/12/21 0422 07/12/21 0607 07/12/21 1006 BP: (!) 188/92 (!) 151/88 (!) 140/70 BP Source: Arm, Left Upper Arm, Left Upper Arm, Left Upper Pulse: 58 55 61 53 Temp: 36.7 C (98.1 F) 37 C (98.6 F) 36.9 C (98.4 F) SpO2: 95% 95% 93% 92% Weight: 99.3 kg (219 lb) Height: 162.6 cm (64") Constitutional: Well-developed, well-nourished, in no apparent distress. HEENT: Normocephalic. No scleral icterus. Moist oral mucosa. Neck/Lymph: Normal ROM, supple. No thyromegaly. No lymphadenopathy Cardiac: Regular rate and rhythm. No overt murmurs Respiratory: Clear to auscultation bilaterally. No wheezes or rales GI: Abdomen soft, non-distended,mild epigastric/RUQ tenderness. BS present. No shifting dullness. No overt hepatosplenomegaly. Skin: Skin is warm and dry. No rash noted. No jaundice. No spider nevi noted. No palmar erythema Musculoskeletal: No lower extremity edema. 2+ pulses in all extremities. ROM in tact, No muscle waisting Labs/Imaging/Endo/Proc: Pertient labs/imaging were reviewed on initiation of progress note. ATTESTATION I personally performed the reyna portions of the E/M visit, discussed case with re sident and concur with resident documentation of history, physical exam, assessm ent, and treatment plan unless otherwise noted. Staff name: Mike Leroy MD Date: 07/12/2021 H BIN PACKER documented in this encounter OR Notes * Operative Report (Direct Entry) - Abe Buchanan MD - 07/14/2021 10:33 AM CLOTH BIN PACKER OPERATIVE REPORT Name: Judith Sands is a 60 y.o. female : 1960 DATE OF OPERATION: 07/14/2021 Bill Area: [facility] Surgeon(s) and Role: * Abe Buchanan MD - Primary * Sammi Grey MD - Resident - Assisting * Jensen Haley DO - Resident - Assisting Preoperative Diagnosis: Pain of upper abdomen [R10.10] Post-op Diagnosis * Pain of upper abdomen [R10.10] Procedure(s): LAPAROSCOPIC CHOLECYSTECTOMY, INTRAOPERATIVE CHOLANGIOGRAM Indications: Gallstone pancreatitis and choledocholithiasis Findings: Inflamed, edematous and indurated gallbladder with friable tissue Intraoperative cholangiogram performed with retrograde filling of hepatic ducts and filling of contrast to duodenum Description and Findings of Operative Procedure: Informed consent was obtained. The patient was brought to the operating room pl aced supine on the operating table. General anesthesia and endotracheal intubat ion was performed by the anesthesia team. The patient received a dose of periop erative antibiotics prior to incision. Her abdomen was prepped and draped in th e usual sterile fashion. A surgical timeout was performed confirming the [facility] patient and procedure. A supraumbilical incision was made and deepened with b ulisses dissection to the level of the fascia. The fascia was grasped and elevated . The fascia was divided with a scalpel. The peritoneal cavity was entered and bluntly sweep confirmed no surrounding adhesions. A an 0 Vicryl suture was use d to place stay sutures Aguilar the fascia. A Sorto port was then placed into t he abdomen and the abdomen was insufflated to 15 mmHg with carbon dioxide. 3 ad ditional 5 mm trochars were placed along the right subcostal margin. The dome o f the gallbladder was identified and appeared enlarged, inflamed and edematous. Using a laparoscopic gallbladder needle the gallbladder was decompressed. The dome of the gallbladder was then grasped and retracted cephalad. The infundibul um of the gallbladder was grasped and retracted laterally. There was significan t surrounding inflamed tissue and induration. Using blunt dissection the cystic artery was identified. It was doubly clipped and divided. Due to the very inf lamed nature of the gallbladder and the friable tissue there were multiple holes made in the gallbladder. Upon further dissection it appeared that the cystic d uct had been avulsed from the infundibulum of the gallbladder. Since the patient 's bilirubin was elevated prior to surgery and we were already planning to perfo rm an intraoperative cholangiogram, a cholangiocatheter was threaded through wha t appeared to be the cystic duct. The catheter was secured with a laparoscopic c lip. Using a 1:1 mixture of saline and dye was flushed through the catheter and using intraoperative fluoroscopy the ducts were imaged. There was retrograde yuni ling of the hepatic ducts as well as filling of contrast to the duodenum. We wer e then confident that the avulsed structure was the cystic duct. We attempted to clip the cystic duct structure, however, it was dilated and the clips came off easily. We then elected to place a PDS endoloop around the cystic duct stump. Th e gallbladder was then removed from the cystic plate using electrocautery and pl aced into an endocatch bag. It was sent from the field for permanent pathology. The liver bed was cauterized for hemostasis. The operative bed was thoroughly ir rigated with sterile saline. The ports were removed under direct visualization a nd insufflation was released. The supraumbilical port site was closed by tying o f the stay 0 vicryl suture. The skin was closed with 4-0 monocryl and dermabond. All needle, sponge, and instrument counts were correct. Dr. Buchanan was present for the entirety of the procedure. The patient was taken to recovery in stable c ondition. Estimated Blood Loss: 50cc Specimen(s) Removed/Disposition: ID Type Source Tests Collected by Time Destination 1 : GALLBLADDER-ROUTINE Tissue Gallbladder SURGICAL PATHOLOGY Edelmira Buchanan MD 07/14/2021 1007 Complications: None Implants: None Drains: None Disposition: PACU - stable Sammi Grey MD Pager [phone] ATTESTATION I performed this procedure with a resident. Staff name: Abe Buchanan MD Date: 07/14/2021 H BIN PACKER documented in this encounter Miscellaneous Notes * Care Plan - Michelle Gómez RN - 07/15/2021 2:51 AM CL[facility] BIN PACKER Problem: Infection, Risk of, Urinary Catheter-Associated Urinary Tract Infection Goal: Absence of urinary catheter-associated infection Outcome: Goal Achieved H BIN PACKER * Transfer - Dior Solitario - 07/14/2021 11:39 AM [facility] BIN PACKER Post op report given to Gilda Esparza RN on unit 51. H BIN PACKER documented in this encounter Plan of Treatment Order Schedule Name Type Priority Associated Diag noses Expected: 07/31/2021 (Approximate), Expi res: 07/15/2022 COMPREHENSIVE METABOLIC Lab Routine Gallst one pancreatitis PANEL Expected: 07/31/2021 (Approximate), Expi res: 07/15/2022 CBC Lab Routine Gallstone pancr eatitis documented as of this encounter Goals Goal Patient Associated Recent Progress Patient-Stat Aut hor Goal Type Problems ed? Increase Physical Activity Exercise On track (07/15/2021 No Michelle Gómez, 12:50 AM CL[facility] BIN PACKER) RN Decrease pain Hospital On track (07/15/2021 No Hes s Michelle, 12:50 AM CL[facility] BIN PACKER) RN Get Adequate Sleep Lifestyle On track (07/15/2021 No Michelle Gómez, 12:50 AM CL[facility] BIN PACKER) RN documented as of this encounter Procedures Comments Procedure Name Priority Date/Time Associated Diag nosis HC CBC,AUTOMATED Routine 07/15/2021 9:05 AM [facility] BIN PACKER HC PHOSPHOROUS, SERUM Routine 07/15/2021 9:05 AM [facility] BIN PACKER HC MAGNESIUM Routine 07/15/2021 9:05 AM [facility] BIN P[facility]ER HC COMPREHENSIVE Routine 07/15/2021 METABOLIC PANEL 9:05 AM [facility] BIN PACKER HC LEV III SRG PTH, GROSS Routine 07/14/2021 Pain of upper abdomen & MICRO 10:07 AM [facility] BIN PACKER FLUORO MOBILE IN OR Routine 07/14/2021 10:00 AM CL[facility] BIN PACKER LAPAROSCOPIC 07/14/2021 Pain of upper abdom en CHOLECYSTECTOMY 8:24 AM CL[facility] BIN PACKER HC PT(INR) 07/14/2021 7:20 AM CL[facility] BIN PACKER HC CBC,AUTOMATED 07/14/2021 7:20 AM CL[facility] BIN PACKER HC PHOSPHOROUS, SERUM 07/14/2021 7:19 AM CL[facility] BIN PACKER HC MAGNESIUM 07/14/2021 7:19 AM [facility] BIN PACKER HC LIPASE Add on 07/14/2021 7:19 AM [facility] BIN P[facility]ER HC COMPREHENSIVE Routine 07/14/2021 METABOLIC PANEL 7:19 AM [facility] BIN PACKER CONSULT VASCULAR ACCESS STAT 07/14/2021 TEAM 6:43 AM CL[facility] BIN PACKER HC PT(INR) Routine 07/13/2021 6:24 AM CL[facility] BIN PACKER HC CBC,AUTOMATED Routine 07/13/2021 6:24 AM CL[facility] BIN PACKER HC PHOSPHOROUS, SERUM Routine 07/13/2021 6:24 AM CL[facility] BIN PACKER HC MAGNESIUM Routine 07/13/2021 6:24 AM CL[facility] BIN PACKER HC COMPREHENSIVE Routine 07/13/2021 METABOLIC PANEL 6:24 AM CL[facility] BIN PACKER MRI MRCP STAT 07/12/2021 8:00 PM CL[facility] BIN PACKER HC PHOSPHOROUS, SERUM Routine 07/12/2021 4:55 AM CL[facility] BIN PACKER HC MAGNESIUM Routine 07/12/2021 4:55 AM CL[facility] BIN PACKER HC LIPASE STAT 07/12/2021 4:55 AM CL[facility] BIN PACKER HC COMPREHENSIVE Routine 07/12/2021 METABOLIC PANEL 4:55 AM CL[facility] BIN PACKER HC PT(INR) Routine 07/12/2021 3:30 AM CL[facility] BIN PACKER HC CBC,AUTOMATED Routine 07/12/2021 3:30 AM CL[facility] BIN PACKER TYPE & CROSSMATCH STAT 07/12/2021 3:30 AM CL[facility] BIN PACKER US ABDOMEN LIMITED Routine 07/12/2021 2:51 AM CL[facility] BIN PACKER TELEMETRY STRIPS-SCAN 07/12/2021 12:[address] CHEST/ABD/PEL EXTERNAL Routine 07/11/2021 IMAGING 7:[address] ABD/PEL EXTERNAL Routine 07/11/2021 IMAGING 12:00 AM CL[facility] BIN PACKER documented in this encounter Results * CBC (07/15/2021 9:05 AM CLOTH BIN PACKER) Pathologist [facility] [place] White Blood 10.3 4.5 - 11.0 K/UL [...] LAB Specimen Blood (substance) Performing Organization Address City/[facility]/ZIP Code P tatianna Number [facility]IN [facility] [address] [place] [address] * MAGNESIUM (07/15/2021 9:05 AM CLOTH BIN PACKER) [facility] Magnesium 1.8 1.6 - 2.6 mg/dL MAIN LAB Specimen Blood (substance) Performing Organization Address City/[facility]/ZIP Code P tatianna Number [facility] [address] [place] [address] * (ABNORMAL) COMPREHENSIVE METABOLIC PANEL (07/15/2021 9:05 AM CLOTH BIN PACKER) [facility] Sodium 139 137 - 147 MMOL/L [facility] [...] (SGPT) 187 (H) 7 - 56 U/L [facility] Anion Gap 10 3 - 12 [facility] eGFR >60Comment: eGFR calculated >60 mL/min [facility] using the CKD-EPIcr_R equation Specimen Blood (substance) Performing Organization Address City/[facility]/ZIP Code P tatianna Number [facility] [address] [place] [address] * PHOSPHORUS (07/15/2021 9:05 AM CLOTH BIN PACKER) Phosphorus 2.3 2.0 - 4.5 MG/DL [facility] Specimen Blood (substance) Performing Organization Address City/[facility]/ZIP Code P tatianna Number [facility] [address] [place] [address] * SURGICAL PATHOLOGY (07/14/2021 10:07 AM CLOTH BIN PACKER) PATHOLOGY [facility] [email or web address] Department of Pathology and Laboratory Medicine [address] [place] [address] Surgical Pathology Office: [phone] SURGICAL PATHOLOGY REPORT NAME: JUDITH SANDS SURG PATH #: [id number] MR #: [id number] SPECIMEN CLASS: SR BILLING #: [id number] ALT ID #: LOCATION: DISCHARGED DATE OF PROCEDURE: 07/14/2021 AGE: 60 SEX: F DATE RECEIVED: 07/14/2021 : 1960 TIME RECEIVED: 10:31 PHYSICIAN: ABE BUCHANAN MD DATE OF REPORT: 07/15/2021 COPY [...] above Lymph Node Identified: No Cassette A1- Emblem Drawer In section of gallbladder body and fundus and a shave of the possible cystic duct at the resection margin (inked black). ([facility]/07/14/2021 Specimen Tissue - Specimen from gallbladder (specimen) Performing Organization Address City/State/ZIP Code P tatianna Number MAIN LAB [address] [place] [address] * FLUORO MOBILE IN OR (07/14/2021 10:00 AM CL[facility] BIN PACKER) Modality Anatomical Region Laterality Radiographic Imaging Specimen Narrative [facility] - 07/14/2021 10:01 AM CLOTH BIN PACKER This order has been auto finalized and does not contain a result. Performing Organization Address City/State/ZIP Code P tatianna Number [facility] * PROTIME INR (PT) (07/14/2021 7:20 AM CLOTH BIN PACKER) INR 1.1 0.8 - 1.2 MAIN LAB Specimen Performing Organization Address City/State/ZIP Code P tatianna Number MAIN LAB [address] [place] [address] * (ABNORMAL) CBC (07/14/2021 7:20 AM CLOTH BIN PACKER) White Blood 8.6 4.5 - 11.0 K/UL [facility] Cells RBC 5.10 (H) 4.0 - 5.0 M/UL [facility] Hemoglobin 15.2 (H) 12.0 - 15.0 GM/DL [facility] Hematocrit 45.4 (H) 36 - 45 % [facility] MCV 89.0 80 - 100 FL [facility] MCH 29.9 26 - 34 PG [facility] MCHC 33.6 32.0 - 36.0 G/DL [facility] RDW 13.4 11 - 15 % [facility] Platelet Count 238 150 - 400 K/UL [facility] MPV 7.9 7 - 11 FL [facility] Specimen Performing Organization Address [facility]/ZIP Code P tatianna Number [facility] [address] [place] [address] * PHOSPHORUS (07/14/2021 7:19 AM CLOTH BIN PACKER) Phosphorus 2.7 2.0 - 4.5 MG/DL [facility] Specimen Performing Organization Address [facility] P tatianna Number [facility] [address] [place] [address] * MAGNESIUM (07/14/2021 7:19 AM CLOTH BIN PACKER) Magnesium 1.9 1.6 - 2.6 mg/dL [facility] Specimen Performing Organization Address [facility] P tatianan Number MAIN LAB [address] [place] [address] * (ABNORMAL) LIPASE (07/14/2021 7:19 AM CLOTH BIN PACKER) Lipase 532 (H) 11 - 82 U/L [facility] Specimen Performing Organization Address [facility] P tatianna Number [facility] [address] [place] [address] * (ABNORMAL) COMPREHENSIVE METABOLIC PANEL (07/14/2021 7:19 AM CLOTH BIN PACKER) Sodium 137 137 - 147 MMOL/L [facility] Potassium 3.9 3.5 - 5.1 MMOL/L [facility] Chloride 98 98 - 110 MMOL/L [facility] Glucose 82 70 - 100 MG/DL [facility] Blood Urea 6 (L) 7 - 25 MG/DL [facility] Nitrogen Creatinine 0.64 0.4 - 1.00 MG/DL [facility] Calcium 8.9 8.5 - 10.6 MG/DL [facility] Total Protein 5.9 (L) 6.0 - 8.0 G/DL [facility] Total Bilirubin 5.9 (H) 0.3 - 1.2 MG/DL [facility] Albumin 3.4 (L) 3.5 - 5.0 G/DL [facility] Alk Phosphatase 238 (H) 25 - 110 U/L [facility] AST (SGOT) 259 (H) 7 - 40 U/L [facility] CO2 29 21 - 30 MMOL/L [facility] ALT (SGPT) 280 (H) 7 - 56 U/L [facility] Anion Gap 10 3 - 12 [facility] eGFR >60Comment: eGFR calculated >60 mL/min [facility] using the CKD-EPIcr_R equation Specimen Blood (substance) Performing Organization Address City/[facility]/ZIP Code P tatianna Number [facility] [address] [place] [address] * PROTIME INR (PT) (07/13/2021 6:24 AM CLOTH BIN PACKER) INR 1.1 0.8 - 1.2 MAIN LAB Specimen Blood (substance) Performing Organization Address [facility] P tatianna Number [facility] [address] [place] [address] * PHOSPHORUS (07/13/2021 6:24 AM CLOTH BIN PACKER) Phosphorus 3.0 2.0 - 4.5 MG/DL [facility] Specimen Blood (substance) Performing Organization Address [facility] P tatianna Number [facility] [address] [place] [phone] * MAGNESIUM (07/13/2021 6:24 AM CLOTH BIN PACKER) Magnesium 1.6 1.6 - 2.6 mg/dL MAIN LAB Specimen Blood (substance) Performing Organization Address [facility] P tatianna Number [facility] [address] [place] [phone] * (ABNORMAL) COMPREHENSIVE METABOLIC PANEL (07/13/2021 6:24 AM CLOTH BIN PACKER) Sodium 142 137 - 147 MMOL/L [facility] Potassium 3.7 3.5 - 5.1 MMOL/L [facility] Chloride 102 98 - 110 MMOL/L [facility] Glucose 65 (L) 70 - 100 MG/DL [facility] Blood Urea 10 7 - 25 MG/DL [facility] Nitrogen Creatinine 0.69 0.4 - 1.00 MG/DL [facility] Calcium 9.0 8.5 - 10.6 MG/DL [facility] Total Protein 5.9 (L) 6.0 - 8.0 G/DL [facility] Total Bilirubin 2.0 (H) 0.3 - 1.2 MG/DL [facility] Albumin 3.5 3.5 - 5.0 G/DL [facility] Alk Phosphatase 152 (H) 25 - 110 U/L [facility] AST (SGOT) 186 (H) 7 - 40 U/L [facility] CO2 29 21 - 30 MMOL/L [facility] ALT (SGPT) 277 (H) 7 - 56 U/L [facility] Anion Gap 11 3 - 12 [facility] eGFR >60Comment: eGFR calculated >60 mL/min [facility] using the CKD-EPIcr_R equation Specimen Blood (substance) Performing Organization Address City/[facility]/ZIP Code P tatianna Number [facility] [address] [place] [address] * CBC (07/13/2021 6:24 AM CLOTH BIN PACKER) White Blood 7.5 4.5 - 11.0 K/UL [facility] Cells RBC 4.76 4.0 - 5.0 M/UL [facility] Hemoglobin 13.9 12.0 - 15.0 GM/DL [facility] Hematocrit 42.6 36 - 45 % [facility] MCV 89.4 80 - 100 FL [facility] MCH 29.2 26 - 34 PG [facility] MCHC 32.6 32.0 - 36.0 G/DL [facility] RDW 13.6 11 - 15 % [facility] Platelet Count 253 150 - 400 K/UL [facility] MPV 8.6 7 - 11 FL [facility] Specimen Blood (substance) Performing Organization Address City/[facility]/ZIP Code P tatianna Number [facility] [address] [place] [address] * MRI MRCP (07/12/2021 8:00 PM CLOTH BIN PACKER) Modality Anatomical Region Laterality Magnetic Resonance Abdomen Specimen Impressions [facility] RESULTS - 07/13/2021 7:12 AM CLOTH BIN PACKER 1. Upper limits normal caliber of the [...] [facility] RESULTS - 07/13/2021 7:12 AM CLOTH BIN PACKER MRI ABDOMEN AND MRCP Clinical Indication: 60-year-old [...] P tatianna Number [facility] RESULTS * (ABNORMAL) LIPASE (07/12/2021 4:55 AM CLOTH BIN PACKER) Lipase >3000 (H) 11 - 82 U/L [facility] Specimen Performing Organization Address City/State/ZIP Code P tatianna Number MAIN LAB [address] [place] [address] * PHOSPHORUS (07/12/2021 4:55 AM CLOTH BIN PACKER) Phosphorus 3.5 2.0 - 4.5 MG/DL [facility] Specimen Blood (substance) Performing Organization Address [facility] P tatianna Number [facility] [address] [place] [address] * MAGNESIUM (07/12/2021 4:55 AM CLOTH BIN PACKER) Magnesium 2.0 1.6 - 2.6 mg/dL [facility] Specimen Blood (substance) Performing Organization Address [facility] P tatianna Number [facility] [address] [place] [address] * (ABNORMAL) COMPREHENSIVE METABOLIC PANEL (07/12/2021 4:55 AM CLOTH BIN PACKER) Sodium 141 137 - 147 MMOL/L [facility] Potassium 4.5 3.5 - 5.1 MMOL/L [facility] Chloride 106 98 - 110 MMOL/L [facility] Glucose 122 (H) 70 - 100 MG/DL [facility] Blood Urea 11 7 - 25 MG/DL [facility] Nitrogen Creatinine 0.70 0.4 - 1.00 MG/DL [facility] Calcium 8.8 8.5 - 10.6 MG/DL [facility] Total Protein 6.4 6.0 - 8.0 G/DL [facility] Total Bilirubin 1.9 (H) 0.3 - 1.2 MG/DL [facility] Albumin 3.9 3.5 - 5.0 G/DL [facility] Alk Phosphatase 180 (H) 25 - 110 U/L [facility] AST (SGOT) 608 (H) 7 - 40 U/L [facility] CO2 25 21 - 30 MMOL/L [facility] ALT (SGPT) 474 (H) 7 - 56 U/L [facility] Anion Gap 10 3 - 12 [facility] eGFR >60Comment: eGFR calculated >60 mL/min [facility] using the CKD-EPIcr_R equation Specimen Blood (substance) Performing Organization Address [facility] Code P tatianna Number [facility] [address] [place] [address] * PROTIME INR (PT) (07/12/2021 3:30 AM CLOTH BIN PACKER) INR 1.0 0.8 - 1.2 [facility] Specimen Blood (substance) Performing Organization Address [facility]/ZIP Code P tatianna Number [facility] [address] [place] [address] * (ABNORMAL) CBC (07/12/2021 3:30 AM CLOTH BIN PACKER) White Blood 9.8 4.5 - 11.0 K/UL [facility] Cells RBC 5.04 (H) 4.0 - 5.0 M/UL [facility] Hemoglobin 15.0 12.0 - 15.0 GM/DL [facility] Hematocrit 44.0 36 - 45 % [facility] MCV 87.3 80 - 100 FL [facility] MCH 29.7 26 - 34 PG [facility] MCHC 34.0 32.0 - 36.0 G/DL [facility] RDW 13.6 11 - 15 % [facility] Platelet Count 380 150 - 400 K/UL [facility] MPV 9.4 7 - 11 FL [facility] Specimen Blood (substance) Performing Organization Address City/[facility]/ZIP Code P tatianna Number [facility] [address] [place] [address] * TYPE & CROSSMATCH (07/12/2021 3:30 AM CLOTH BIN PACKER) Units Ordered 0 [facility] Crossmatch 07/15/2021,2359 [facility] Expires Record Check FOUND [facility] ABO/RH(D) O POS [facility] Antibody Screen NEG [facility] Electronic YES [facility] Crossmatch Specimen Performing Organization Address [facility]/ZIP Code P tatianna Number MAIN LAB [address] [place] [address] * US ABDOMEN LIMITED (07/12/2021 2:51 AM CLOTH BIN PACKER) Modality Anatomical Region Laterality Ultrasound Abdomen Specimen Impressions [facility] RESULTS - 07/12/2021 8:56 AM CLOTH BIN PACKER 1. Cholelithiasis with mild gallbladder wall edema [...] [facility] RESULTS - 07/12/2021 8:56 AM CLOTH BIN PACKER ABDOMINAL ULTRASOUND CLINICAL INDICATION: Female, 60 years [...] RESULTS * TELEMETRY STRIPS-SCAN (07/12/2021 12:00 AM CLOTH BIN PACKER) Narrative 07/12/2021 12:00 AM CLOTH BIN PACKER Ordered by an unspecified provider. * CT CHEST/ABD/PEL EXTERNAL IMAGING (07/11/2021 7:35 PM CLOTH BIN PACKER) Modality Anatomical Region Laterality Computed Radiography Specimen Narrative Scheduling, Silent - 07/13/2021 4:57 AM CLOTH BIN PACKER This order has been auto finalized and does not contain a result. * CT ABD/PEL EXTERNAL IMAGING (07/11/2021 12:00 AM CLOTH BIN PACKER) Modality Anatomical Region Laterality Computed Radiography Specimen Narrative Scheduling, Silent - 07/12/2021 7:19 AM CLOTH BIN PACKER This order has been auto finalized and does not contain a result. documented in this encounter Visit Diagnoses Diagnosis Abdominal pain - Primary Abdominal pain, unspecified site Pain of upper abdomen Abdominal pain, other specified site Gallstone pancreatitis Acute pancreatitis documented in this encounter Admitting Diagnoses Diagnosis Abdominal pain Abdominal pain, unspecified site documented in this encounter Administered Medications Action Date Dose Rate Site Medication Order MAR Action 07/15/2021 11:36 AM CLOTH BIN PACKER 325 mg acetaminophen (TYLENOL) tablet 325 mg Given 325 mg, Oral, EVERY 4 HOURS PRN, Starting on Wed07/13/21 at 1200, Until Wed07/15/21 at 1350, Pain non-opioid: may be used alone or in combination wit h opioid analgesia, TOTAL ACETAMINOPHEN DOSE NOT TO EXCEED 4GM DAILY 325 mg Given 07/15/2021 6:06 AM CLOTH BIN PACKER 325 mg Given 07/14/2021 11:58 PM CLOTH BIN PACKER 325 mg Given 07/14/2021 7:55 PM CLOTH BIN PACKER 325 mg Given 07/13/2021 7:52 PM CLOTH BIN PACKER 07/12/2021 8:24 PM CLOTH BIN PACKER 650 mg acetaminophen (TYLENOL) tablet 650 mg Given 650 mg, Oral, ONCE, 1 dose, On 07/12/21 at 2000, TOTAL ACETAMINOPHEN DOSE NOT TO EXCEED 4GM DAILY 07/13/2021 8:01 AM CLOTH BIN PACKER 650 mg acetaminophen (TYLENOL) tablet 650 mg Given 650 mg, Oral, ONCE, 1 dose, On 07/13/21 at 0830, TOTAL ACETAMINOPHEN DOSE NOT TO EXCEED 4GM DAILY 07/15/2021 5:19 AM CLOTH BIN PACKER 1.5 g 200 mL/hr ampicillin/sulbactam (UNASYN) 1.5 g in Given - New sodium chloride 0.9% (NS) 100 mL IVPB Bag (MB+) 1.5 g, Intravenous, 100 mL, Administer over 30 Minutes, EVERY 6 HOURS, 4 doses, First dose on 07/14/21 at 1145, Last dose on Wed07/15/21 at 0545 1.5 g 200 mL/hr Given - New Bag 07/14/2021 11:58 PM CL[facility] BIN PACKER 1.5 g 200 mL/hr Given - New Bag 07/14/2021 5:33 PM CLOTH BIN PACKER 1.5 g 200 mL/hr Given - New Bag 07/14/2021 12:44 PM CLOTH BIN PACKER 07/14/2021 9:05 PM CLOTH BIN PACKER 40 mg Abdomina l Tissue enoxaparin (LOVENOX) syringe 40 mg Given 40 mg, Subcutaneous, DAILY, First dose on 07/12/21 at 0130, Until Discontinued, For patients undergoing surgery: Consult physician in advance - - enoxaparin is an anticoagulant and may need to be held for 12hr prior to surgery or invasive procedures. NOTE: This is a HIGH ALERT Medication. 40 mg Arm, Right Given 07/13/2021 7:52 PM CLOTH BIN PACKER 07/14/2021 11:16 AM CLOTH BIN PACKER 25 mcg fentaNYL citrate PF (SUBLIMAZE) Given injection 25 mcg 25 mcg, Intravenous, EVERY 5 MIN PRN, Starting on Wed07/14/21 at 1028, Until Wed07/14/21 at 1203, Pain Injectable, For Pain Score < 4, Maximum total dose of 200 mcg Hold for RR < 10, PACU (only ) 07/13/2021 2:25 PM CLOTH BIN PACKER 50 mcg fentaNYL citrate PF (SUBLIMAZE) Given injection 25-50 mcg 25-50 mcg, Intravenous, EVERY 1 HOUR PRN, Starting on 07/12/21 at 0117, Until 07/13/21 at 1819, Pain Injectable 25 mcg Given 07/13/2021 12:26 PM CLOTH BIN PACKER 50 mcg Given 07/12/2021 3:21 AM CLOTH BIN PACKER 50 mcg Given 07/12/2021 1:28 AM CLOTH BIN PACKER fentaNYL citrate PF (SUBLIMAZE) injection 25-50 mcg 25-50 mcg, Intravenous, EVERY 2 HOURS PRN, Starting on Wed07/13/21 at 1830, Until Wed07/15/21 at 1350, Pain Injectable 07/14/2021 9:06 PM CLOTH BIN PACKER 100 mg gabapentin (NEURONTIN) capsule 100 mg Given 100 mg, Oral, AT BEDTIME DAILY, First dose on Wed07/12/21 at 2100, Until Discontinued 100 mg Given 07/13/2021 7:53 PM CLOTH BIN PACKER 100 mg Given 07/12/2021 8:24 PM CLOTH BIN PACKER 07/13/2021 6:18 PM CL[facility] BIN PACKER 10 mg hydrALAZINE (APRESOLINE) tablet 10 mg Given 10 mg, Oral, EVERY 6 HOURS PRN, Starting on Wed07/13/21 at 1029, Until Wed07/15/21 at 1350, Systolic Blood Pressure..., SBP > 160, After dose, check BP every 5 minutes x3, then every 15 minutes x2 until desired BP reached. Notify provider if blood pressure is no t within desired range after above monitoring time. Hold for HR > 100 07/13/2021 8:01 AM CLOTH BIN PACKER 12.5 mg hydroCHLOROthiazide (HYDRODIURIL) tablet Given 12.5 mg 12.5 mg, Oral, DAILY, First dose on Wed07/12/21 at 1100, Until Discontinued 12.5 mg Given 07/12/2021 11:03 AM CLOTH BIN PACKER 07/13/2021 10:48 AM CLOTH BIN PACKER 12.5 mg hydroCHLOROthiazide (HYDRODIURIL) tablet Given 12.5 mg 12.5 mg, Oral, ONCE, 1 dose, On Wed07/13/21 at 1115 07/15/2021 9:08 AM CL[facility] BIN PACKER 25 mg hydroCHLOROthiazide (HYDRODIURIL) tablet Given 25 mg 25 mg, Oral, DAILY, First dose (after last modification) on Wed07/14/21 at 0900, Until Discontinued 25 mg Given 07/14/2021 12:44 PM CLOTH BIN PACKER hydrOXYzine HCL (ATARAX) tablet 25 mg 25 mg, Oral, THREE TIMES DAILY PRN, Starting on Wed07/15/21 at 0257, Until Wed07/15/21 at 1350, Itching PO 07/13/2021 7:53 PM CLOTH BIN PACKER 50 mL/hr lactated ringers infusion Given - New 1,000 mL, Intravenous, at 50 mL/hr, Bag CONTINUOUS, Starting on Wed07/12/21 at 0130, Until Wed07/14/21 at 0129 50 mL/hr Given - New Bag 07/13/2021 10:37 AM CLOTH BIN PACKER 50 mL/hr Dose/Rate Change 07/13/2021 9:19 AM CLOTH BIN PACKER 125 mL/hr Given - New Bag 07/13/2021 2:27 AM CLOTH BIN PACKER 125 mL/hr Given - New Bag 07/12/2021 3:21 AM CLOTH BIN PACKER 07/14/2021 10:23 AM CL[facility] BIN PACKER lactated ringers infusion Infusion 1,000 mL, 1,000 mL, Intravenous, at 20 Restarted mL/hr, CONTINUOUS, Starting on Wed07/14/21 at 0630, Until Wed07/14/21 at 1033, Pre-Op 1,000 mL 20 mL/hr Given - New Bag 07/14/2021 7:02 AM CLOTH BIN PACKER 07/13/2021 9:51 AM CLOTH BIN PACKER 4 g 12.5 mL/hr magnesium sulfate 4 g/50 mL IVPB Given - New 4 g, Intravenous, 50 mL, Administer over Bag 4 Hours, ONCE, 1 dose, On 07/13/21 at 0930, Each 1gm delivers 8.1 mEq Magnesium ondansetron (ZOFRAN ODT) rapid dissolve tablet 4 mg 4 mg, Oral, EVERY 6 HOURS PRN, Startin g on Wed07/12/21 at 0117, Until Wed07/15/21 at 1350, Nausea/Vomiting PO, Place on tongue and allow to dissolve. 07/13/2021 12:10 PM CLOTH BIN PACKER 4 mg ondansetron (ZOFRAN) injection 4 mg Given 4 mg, Intravenous, EVERY 6 HOURS PRN, Starting on Wed07/12/21 at 0117, Until Wed07/15/21 at 1350, Nausea/Vomiting Injectable 4 mg Given 07/12/2021 1:28 AM CLOTH BIN PACKER 07/15/2021 11:36 AM CLOTH BIN PACKER 15 mg oxyCODONE (ROXICODONE) tablet 5-15 mg Given 5-15 mg, Oral, EVERY 4 HOURS PRN, Starting on Wed07/12/21 at 0117, Until Wed07/15/21 at 1350, Pain PO 15 mg Given 07/15/2021 6:06 AM CLOTH BIN PACKER 15 mg Given 07/14/2021 11:59 PM CLOTH BIN PACKER 5 mg Given 07/14/2021 5:33 PM CLOTH BIN PACKER 15 mg Given 07/14/2021 12:55 PM CL[employer] 10 mg Given 07/14/2021 3:23 AM [employer] 15 mg Given 07/13/2021 4:51 PM [employer] 15 mg Given 07/13/2021 11:20 AM [employer] 15 mg Given 07/12/2021 8:23 PM [employer] 15 mg Given 07/12/2021 8:51 AM [employer] 07/14/2021 9:06 PM [employer] [employer] [address] (PROTONIX) tablet 40 mg Given 40 mg, Oral, DAILY, First dose on 07/12/21 at 0300, Until Discontinued, D o not crush or chew tablet. 40 mg Given 07/13/2021 7:53 PM [employer] 40 mg Given 07/12/2021 8:24 PM [employer] 07/13/2021 10:39 AM [employer] 10 mEq 25 mL/hr potassium chloride in water IVPB 10 mEq Given - New 10 mEq, Intravenous, 50 mL, Administer Bag over 120 Minutes, EVERY 2 HOURS, 1 dose, First dose on 07/13/21 at 1030, NOTE: This is a HIGH ALERT Medication. 07/13/2021 1:36 PM [employer] 10 mEq 25 mL/hr potassium chloride in water IVPB 10 mEq Given - New 10 mEq, Intravenous, 50 mL, Administer Bag over 120 Minutes, EVERY 2 HOURS, 1 dose, First dose on 07/13/21 at 1230, NOTE: This is a HIGH ALERT Medication. 07/13/2021 3:54 PM [employer] 10 mEq 25 mL/hr potassium chloride in water IVPB 10 mEq Given - New 10 mEq, Intravenous, 50 mL, Administer Bag over 120 Minutes, EVERY 2 HOURS, 1 dose, First dose on 07/13/21 at 1430, NOTE: This is a HIGH ALERT Medication. 07/13/2021 2:25 PM [facility] [facility] 10 mg prochlorperazine (COMPAZINE) injection Given 10 mg 10 mg, Intravenous, EVERY 6 HOURS PRN, Starting on 07/12/21 at 0258, Until Wed07/15/21 at 1350, Nausea/Vomiting Injectable, PROTECT FROM LIGHT -- May b e given undiluted, or each 5mg may be diluted with 9 mL of NS to facilitate titration. 10 mg Given 07/12/2021 3:21 AM [facility] [facility] 07/13/2021 9:51 AM [facility] [facility] 250 mL 10 mL/hr SODIUM CHLORIDE 0.9 % IV SOLP (Cabinet Given - New Override) Bag NOW, 1 dose, On 07/13/21 at 1000, Created by cabinet override, Created by cabinet override 07/13/2021 10:49 AM [employer] [facility] 250 mL 10 mL/hr SODIUM CHLORIDE 0.9 % IV SOLP (Cabinet Given - New Override) Bag NOW, 1 dose, On 07/13/21 at 1045, Created by cabinet override, Created by cabinet override documented in this encounter Discontinued Medications Start Date End Date Medication Sig Discontinue Reason 05/09/2019 07/12/2021 trimethoprim/sulfamethoxa TK 2 TS PO Removed from zole (BACTRIM DS) 160/800 BID CRITICAL CARE EDUCATOR Med List mg tablet 06/03/2021 07/12/2021 trimethoprim/sulfamethoxa Take one Removed from zole (BACTRIM DS) 160/800 tablet by CRITICAL CARE EDUCATOR Med List mg tablet mouth twice daily. 04/25/2019 07/12/2021 senna (SENOKOT) 8.6 mg Take one Removed from tablet tablet by CRITICAL CARE EDUCATOR Med List mouth daily as needed. 05/12/2019 07/15/2021 oxyCODONE (ROXICODONE) 5 Take one mg tabletIndications: tablet by Vulvar cancer (HCC), Pain mouth every 4 hours as needed documented as of this encounter Historical Medications * This list may reflect changes made after this encounter. Start Date End Date Medication Sig Dispensed Refills lactobacillus rhamnosus Take 1 0 (GG) (CULTURELLE) 10 capsule by billion cell capsule mouth daily. mineral oil/hydrophilic Apply 0 petrolatum (AQUAPHOR) topically to oint affected area daily. cholecalciferol (VITAMIN Take by 0 D-3) 400 unit tab tablet mouth daily. carboxymethylcellulos/gly Place into 0 cerin (CLEAR EYES FOR DRY or around EYES OP) eye(s). Kdtpdoaktqswx-Mv-Tptw-Min Take by 0 erals (MULTIPLE VITAMIN, mouth. WOMENS) tab added in this encounter Active and Recently Administered Medications Times are shown in [facility] [facility]. 07/14/2021 07/15/2021 Medication Order 07/13/2021 acetaminophen (TYLENOL) tablet 650 mg 0801 (Given - (COMPLETED) Provider: Hattie 650 mg, Oral, ONCE, 1 dose, On Sahra Esparza RN) 07/13/21 at 0830, TOTAL ACETAMINOPHEN DOSE NOT TO EXCEED 4GM DAILY 1244 (Given - New Bag - Provider: Bruce Esparza RN)1733 (Given - New Bag - Provider: Hattie Esparza RN)2358 (Given - New Bag - Provider: Michelle Gómez RN) 0519 (Given - New Bag - Provider: Tony Isaacs RN) ampicillin/sulbactam (UNASYN) 1.5 g in sodium chloride 0.9% (NS) 100 mL IVPB (MB+) (COMPLETED) 1.5 g, Intravenous, 100 mL, Administer over 30 Minutes, EVERY 6 HOURS, 4 doses, First dose on Wed07/14/21 at 1145, Last dose on Wed07/15/21 at 0545 0630 (SEP Hold - Provider: Austin, Orders Di scontinue - Reason: Patient not available/off unit)1203 (MAR Unhold - Provider: Austin, Orders Discontinue)2104 (Given - Provider: Michelle Gómez RN) enoxaparin (LOVENOX) syringe 40 mg 1951 (Given - 40 mg, Subcutaneous, DAILY, First dose Provider: Shanell sewell on 07/12/21 at 0130, Until RAY Esparza)2032 Discontinued, For patients undergoing (Wasted - Prov ider: surgery: Consult physician in advance -- Wendy linton, enoxaparin is an anticoagulant and may RN) need to be held for 12hr prior to surgery or invasive procedures. NOTE: This is a HIGH ALERT Medication. 2105 (Given - Provider: Michelle Gómez RN) gabapentin (NEURONTIN) capsule 100 mg 1952 (Given - 100 mg, Oral, AT BEDTIME DAILY, First Provider: Hermila abbill dose on 07/12/21 at 2100, Until RAY Esparza)2032 Discontinued (Wasted - Provider: Wendy Driscoll RN) hydroCHLOROthiazide (HYDRODIURIL) tablet 0801 (Given - 12.5 mg (CANCELED) Provider: Hattie 12.5 mg, Oral, DAILY, First dose on Sat RAY Esparza) 07/12/21 at 1100, Until Discontinued hydroCHLOROthiazide (HYDRODIURIL) tablet 1048 (Given - 12.5 mg (COMPLETED) Provider: Hattie 12.5 mg, Oral, ONCE, 1 dose, On Sun RAY Esparza) 07/13/21 at 1115 0630 (SEP Hold - Provider: Austin, Orders Di scontinue - Reason: Patient not available/off unit)0900 (Planned Hold - Provider: Hattie Esparza RN)1203 (SEP Unhold - Provider: Austin, Orders Discontinue)1244 (Given - Provider: Hattie Esparza RN) 0908 (Given - Provider: Loreto Pantoja) hydroCHLOROthiazide (HYDRODIURIL) table t 25 mg 25 mg, Oral, DAILY, First dose (after last modification) on Wed07/14/21 at 0900, Until Discontinued magnesium sulfate 4 g/50 mL IVPB 0951 (Given - New (COMPLETED) Bag - Provider: 4 g, Intravenous, 50 mL, Administer over Hattie R ivara, 4 Hours, ONCE, 1 dose, On [place] 07/13/21 RN) at 0930, Each 1gm delivers 8.1 mEq Magnesium 0630 (SEP Hold - Provider: Austin, Orders Di scontinue - Reason: Patient not available/off unit)1203 (SEP Unhold - Provider: Austin, Orders Discontinue)2105 (Given - Provider: Michelle Gómez RN) pantoprazole DR (PROTONIX) tablet 40 mg 1952 (Given - 40 mg, Oral, DAILY, First dose on Sat Provider: Hermila monreal 07/12/21 at 0300, Until Discontinued, Do Vilma RN) 2033 not crush or chew tablet. (Wasted - Provider: Wendy Driscoll, RAY) potassium chloride in water IVPB 10 mEq 1039 (Given - New (COMPLETED) Bag - Provider: 10 mEq, Intravenous, 50 mL, Administer Hattie Timothy aurelio, over 120 Minutes, EVERY 2 HOURS, 1 RN) dose, First dose on [place] 07/13/21 at 1030, NOTE: This is a HIGH ALERT Medication. potassium chloride in water IVPB 10 mEq 1336 (Given - New (COMPLETED) Bag - Provider: 10 mEq, Intravenous, 50 mL, Administer Hattie carey RN over 120 Minutes, EVERY 2 HOURS, 1 - Comment: IV pu mp dose, First dose on 07/13/21 at issues) 1230, NOTE: This is a HIGH ALERT Medication. potassium chloride in water IVPB 10 mEq 1554 (Given - New (COMPLETED) Bag - Provider: 10 mEq, Intravenous, 50 mL, Administer Hattiedonato carey, over 120 Minutes, EVERY 2 HOURS, 1 RN) dose, First dose on 07/13/21 at 1430, NOTE: This is a HIGH ALERT Medication. SODIUM CHLORIDE 0.9 % IV SOLP (Cabinet 0951 (Given - New Override) (COMPLETED) Bag - Provider: NOW, 1 dose, On 07/13/21 at 1000, Hattie Hathaway ra, Created by cabinet override, Created by RN) cabinet override SODIUM CHLORIDE 0.9 % IV SOLP (Cabinet 1049 (Given - New Override) (COMPLETED) Bag - Provider: NOW, 1 dose, On 07/13/21 at 1045, Hattie Hathaway ra, Created by cabinet override, Created by RN) cabinet override 07/14/2021 07/15/2021 Medication Order 07/13/2021 lactated ringers infusion () 0227 (Given - Ne w 1,000 mL, Intravenous, at 50 mL/hr, Bag - Provider: CONTINUOUS, Starting on 07/12/[address] [facility] er, 0130, Until 07/14/21 at 0129 RN)0919 (Dose/Rate Change - Provider: Hattie Esparza RN)1037 (Given - New Bag - Provider: Hattie Esparza RN)1953 (Given - New Bag - Provider: Hattie Esparza RN) 0702 (Given - New Bag - Provider: Ayanna estrella RN)1022 (Infusion Paused - Provider: Teresa Weldon CRNA - Comment: Switch to gravity)1023 (Infusion Restarted - Provider: Teresa Weldon CRNA) lactated ringers infusion (CANCELED) 1,000 mL, 1,000 mL, Intravenous, at 20 mL/hr, CONTINUOUS, Starting on 07/14/21 at 0630, Until Wed07/14/21 at 1033, Pre-Op 07/14/2021 07/15/2021 Medication Order 07/13/2021 0630 (SEP Hold - Provider: Austin, Orders Di scontinue - Reason: Patient not available/off unit)1203 (SEP Unhold - Provider: Austin, Orders Discontinue)1955 (Given - Provider: Hattie Esparza, RAY)2358 (Given - Provider: Michelle Gómez, RN) 0606 (Given - Provider: Michelle Gómez, RN)1 136 (Given - Provider: Sammi Delgado RN) acetaminophen (TYLENOL) tablet 325 mg 1951 (Given - 325 mg, Oral, EVERY 4 HOURS PRN, Provider: Rhiannon ayala Starting on 07/13/21 at 1200, Until RAY Esparza) 07/15/21 at 1350, Pain non-opioid: may be used alone or in combination wit h opioid analgesia, TOTAL ACETAMINOPHEN DOSE NOT TO EXCEED 4GM DAILY 1116 (Given - Provider: Dior Solitario) fentaNYL citrate PF (SUBLIMAZE) injection 25 mcg (CANCELED) 25 mcg, Intravenous, EVERY 5 MIN PRN, Starting on 07/14/21 at 1028, Until Wed07/14/21 at 1203, Pain Injectable, For Pain Score < 4, Maximum total dose of 200 mcg Hold for RR < 10, PACU (only ) fentaNYL citrate PF (SUBLIMAZE) 1226 (Given - injection 25-50 mcg (CANCELED) Provider: Hattie 25-50 mcg, Intravenous, EVERY 1 HOUR RAY Esparza)142 5 PRN, Starting on 07/12/21 at 0117, (Given - Prov ider: Until 07/13/21 at 1819, Pain Brook Cabello RN) 0630 (SEP Hold - Provider: Austin, Orders Di scontinue - Reason: Patient not available/off unit)1203 (SEP Unhold - Provider: Austin, Orders Discontinue) fentaNYL citrate PF (SUBLIMAZE) injection 25-50 mcg 25-50 mcg, Intravenous, EVERY 2 HOURS PRN, Starting on Wed07/13/21 at 1830, Until Wed07/15/21 at 1350, Pain Injectable hydrALAZINE (APRESOLINE) tablet 10 mg 1818 (Given - 10 mg, Oral, EVERY 6 HOURS PRN, Provider: Hattie Starting on Wed07/13/21 at 1029, Until RAY Esparza) Wed07/15/21 at 1350, Systolic Blood Pressure..., SBP > 160, After dose, check BP every 5 minutes x3, then every 15 minutes x2 until desired BP reached. Notify provider if blood pressure is no t within desired range after above monitoring time. Hold for HR > 100 hydrOXYzine HCL (ATARAX) tablet 25 mg 25 mg, Oral, THREE TIMES DAILY PRN, Starting on Wed07/15/21 at 0257, Until Wed07/15/21 at 1350, Itching PO 1000 (Given - Provider: Abe Buchanan MD) iopamidol 300 (ISOVUE-300) 61 % injection (CANCELED) INTRA-PROCEDURE MED, Starting on Wed07/14/21 at 1000, Until Wed07/14/21 at 1039, Intra-op 1023 (Given - Provider: Abe Buchanan MD) lidocaine 1%/EPINEPHrine 1:100,000 injection (CANCELED) INTRA-PROCEDURE MED, Starting on Wed07/14/21 at 1023, Until Wed07/14/21 at 1039, Intra-op 0630 (SEP Hold - Provider: Austin, Orders Di scontinue - Reason: Patient not available/off unit)1203 (MAR Unhold - Provider: Austin, Orders Discontinue) ondansetron (ZOFRAN ODT) rapid dissolve 1210 (See tablet 4 mg(Linked Group 1) Alternative - 4 mg, Oral, EVERY 6 HOURS PRN, Starting Provider: Vivien agarwal on 07/12/21 at 0117, Until Tiffani Mann RN) 07/15/21 at 1350, Nausea/Vomiting PO, Place on tongue and allow to dissolve. 0630 (SEP Hold - Provider: Austin, Orders Di scontinue - Reason: Patient not available/off unit)1203 (MAR Unhold - Provider: Austin, Orders Discontinue) ondansetron (ZOFRAN) injection 4 1210 (Given - mg(Linked Group 1) Provider: Analia 4 mg, Intravenous, EVERY 6 HOURS PRN, RAY Mann) Starting on 07/12/21 at 0117, Until Wed07/15/21 at 1350, Nausea/Vomiting Injectable 0323 (Given - Provider: Wendy jaime RN)0630 (SEP Hold - Provider: Austin, Orders Discontinue - Reason: Patient not available/off unit)1203 (SEP Unhold - Provider: Austin, Orders Discontinue)1255 (Given - Provider: Hattie Esparza, RAY) 1733 (Given - Provider: Hattie Esparza, RAY)2359 (Given - Provider: Michelle Gómez, RN) 0606 (Given - Provider: Michelle Gómez RN)1 136 (Given - Provider: Sammi Delgado RN) oxyCODONE (ROXICODONE) tablet 5-15 mg 1120 (Given - 5-15 mg, Oral, EVERY 4 HOURS PRN, Provider: Angela valderrama Starting on 07/12/21 at 0117, Until RAY Esparza)1 651 Wed07/15/21 at 1350, Pain PO (Given - Provider: Hattie Esparza, RAY) 0630 (SEP Hold - Provider: Austin, Orders Di scontinue - Reason: Patient not available/off unit)1203 (SEP Unhold - Provider: Austin, Orders Discontinue) prochlorperazine (COMPAZINE) injection 1425 (Given - 10 mg Provider: Hattie 10 mg, Intravenous, EVERY 6 HOURS PRN, RAY Esparza) Starting on 07/12/21 at 0258, Until Wed07/15/21 at 1350, Nausea/Vomiting Injectable, PROTECT FROM LIGHT -- May b e given undiluted, or each 5mg may be diluted with 9 mL of NS to facilitate titration. Order Group 1: ondansetron (ZOFRAN ODT) rapid dissolve tablet 4 mgJump to med 4 mg, Oral, EVERY 6 HOURS PRN, Startin g on 07/12/21 at 0117, Until Wed07/15/21 at 1350, Nausea/Vomiting PO
Place on tongue a nd allow to dissolve.
Or ondansetron (ZOFRAN) injection 4 mgJump to med 4 mg, Intravenous, EVERY 6 HOURS PRN, Starting on 07/12/21 at 0117, Until 07/15/21 at 1350, Nausea/Vomiting Injectable documented in this encounter Orders First Ordered Date Medications Ordered That Might Not Have Count Last Ordered Date Been Administered hydrOXYzine HCL (ATARAX) tablet 25 mg 1 07/15/2021 diphenhydrAMINE HCL (BENADRYL) injection 1 07/14/2021 25 mg haloperidol lactate (HALDOL) injection 1 1 07/14/2021 mg HYDROmorphone injection (DILAUDID) 0.5 1 07/14/2021 mg iopamidol 300 (ISOVUE-300) 61 % 1 2020 injection lidocaine 1%/EPINEPHrine 1:100,000 1 injection fentaNYL citrate PF (SUBLIMAZE) 1 2020 injection 25-50 mcg hydrALAZINE (APRESOLINE) injection 10 mg 1 07/13/2021 acetaminophen (TYLENOL) tablet 650 mg 1 07/12/2021 ondansetron (ZOFRAN ODT) rapid dissolve 1 07/12/2021 tablet 4 mg First Ordered Date Procedures Count Last Ordered Date CONSULT VASCULAR ACCESS TEAM 1 First Ordered Date Diet Count Last Ordered Date DISCHARGE DIET REGULAR 1 07/15/2021 First Ordered Date Nursing Count Last Ordered Date BATHING INSTRUCTIONS 1 07/15/2021 DISCHARGE ACTIVITY DRIVING 1 07/15/2021 DISCHARGE ACTIVITY LIFTING 1 07/15/2021 DISCHARGE CONTACT 1 07/15/2021 DISCHARGE SIGNS/SYMPTOMS 1 07/15/2021 DISCHARGE WOUND CARE 1 07/15/2021 COVID-19 TESTING NOT REQUIRED 1 07/12/20 21 WEIGH PATIENT 1 07/12/2021 First Ordered Date Consult Count Last Ordered Date CONSULT GASTROENTEROLOGY PHYSICIAN 1 First Ordered Date PT Count Last Ordered Date PT CONSULT PHYSICAL THERAPY 1 07/12/2021 First Ordered Date Admission Count Last Ordered Date ADMIT TO INPATIENT (NO BED REQUEST) 1 First Ordered Date Discharge Count Last Ordered Date DISCHARGE PATIENT NOW 1 07/15/2021 First Ordered Date Equipment Count Last Ordered Date HEATING, MACHINE AK WITH PAD 1 1 PUMP IV ADD MOD(NO CTRL UNIT) 1 07/13/20 21 PUMP IV CONTROL UNIT W/MODULES 1 021 First Ordered Date Activity Count Last Ordered Date MOBILITY 1 07/12/2021 First Ordered Date Discharge Contingent Count Last Ordered Date DISCHARGE PATIENT CONTINGENT 1 First Ordered Date Appointment Request Count Last Ordered Date APPOINTMENT REQUEST: ACUTE CARE SURGERY 1 07/15/2021 First Ordered Date Intake & Output Count Last Ordered Date INTAKE AND OUTPUT 1 07/12/[address] & Maintain Count Last Ordered Date PLACE AND MAINTAIN SCD 1 07/12/2021 First Ordered Date Case Request Count Last Ordered Date CASE REQUEST 1 07/13/2021 documented in this encounter Additional Health Concerns Noted Time Assessment 07/15/2021 9:08 AM [employer] [facility] A fall risk assessment has been complet ed for the patient 12/10/2020 12:49 PM CDT PHQ-2 Depression Total Score: 0 documented as of this encounter Care Teams Start Date End Date Window Shade 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
--- OUTSIDE RECORDS SUMMARY | 2021-07-19 11:05 | XMS REPORT | Encounter Summary ---
Author Author [facility] Organization [facility] Address Unknown Phone Unavailable Care Team Providers Care Dried Fruit Washer Name Role Phone Emily Caba JAMES Unavailable Unavailable Lulu Lloyd MD PCP Reason for Visit * Auth/Cert Diagnoses / Procedures Referred By Contact Referred To Conta ct Specialty Diagnoses Abdominal pain abd pain, nausea Referral ID Status Reason Start Date Expiration Visits Vi sits Date Requested Authorized [id number] 1 1 Encounter Details Care Team Description Date Type Department Kendra Buchanan MD [address] [place] [address] LAPAROSCOPIC CHOLECYSTECTOMY, INTRAOPERA TIVE CHOLANGIOGRAM 07/14/2021 Surgery Operating Room: [facility] [address] [place] [address] Surgery Details Trauma Case? Date/Time Status Location OR Service Patient Class Case Class Case Type 07/14/21 Posted [facility] OR OR Surgery Inpatient Elective - 8:00 AM Trauma Treating conditions that are not life or limb threatenin g Panel 1 Procedure LRB Anes Op Region Wound Class Com ments LAPAROSCOPIC N/A Defer to Abdomen Clean CHOLECYSTECTOMY, Anesthesia Contaminated INTRAOPERATIVE CHOLANGIOGRAM Panel Surgeon Surgeon Role Service 1 Sammi Grey MD Resident - Assisting Surgery Gener al 1 Jensen Haley DO Resident - Assisting Surgery Genera l 1 Kendra Buchanan MD Primary Surgery Trauma Social History Date Tobacco Use Types Packs/Day [...] Recorded COVID-19 Exposure Response 07/11/2021 10:00 PM ASSEMBLY PERSON In the last month, have you been in contact with No / Unsure someone who was confirmed or suspected to have Coronavirus / COVID-19? documented as of this encounter Last Filed Vital Signs Reading Time Taken Comments Vital Sign 156/65 07/14/2021 10:45 AM ASSEMBLY PERSON Blood Pressure 92 07/14/2021 10:45 AM ASSEMBLY PERSON Pulse 36.6 C (97.9 F) 07/14/2021 10:40 AM ASSEMBLY PERSON Temperature - - Respiratory Rate 99% 07/14/2021 10:45 AM ASSEMBLY PERSON Oxygen Saturation - - Inhaled Oxygen Concentration 99.3 kg (219 lb) 07/12/2021 1:15 AM ASSEMBLY PERSON Weight 162.6 cm (5' 4") 07/12/2021 1:15 AM ASSEMBLY PERSON Height 37.59 07/12/2021 1:15 AM ASSEMBLY PERSON Body Mass Index documented in this encounter [...] of this encounter Discharge Summaries * Jensen Haley DO - 07/15/2021 11:49 AM ASSEMBLY PERSON Discharge Summary Name: Judith Sands Date Of [...] affected area daily. PRESCRIPTION TYPE: Historical Med Wkqqdcexuitmp-Qd-Atsu-Minerals (MULTIPLE VITAMIN, WOMENS) tab Take by mouth. [...] Postoperative visit with [facility] Surgery: [facility] (Surgery) [address] [place] [address] Sep 02, 2021 1:00 PM Office visit with Brandie Pineda MD Obstetrics and Gynecology: [facility] (QUALITY ASSURANCE SPECIALIST) [address] [facility] [address] Consults, Procedures, Diagnostics, Micro, Pathology Consults: CONSULT [...] ID 07/12/2021 [id number] 07/15/2021 1355 Full Code [id number] Damian Gomez MD Inpati ent 04/24/2019 1835 04/25/2019 1529 Full Code [id number] Lorraine Ngo MD In patient Patient Instructions [...] or concerns regarding your hospital stay, call [phone]. Discharging attending physician: KENDRA BUCHANAN [[id number]] Appointment Request: Acute Care Surgery Diagnosis: S/p [...] No Pager # of requesting provider if chief crew scheduler has any questions: [phone] Additional Orders: Case Management, Supplies, Home Health Home Health/DME None Signed: Jensen Haley DO 07/16/2021 cc: Primary Care Physician: Lulu Lloyd Referring physicians: Tessa, MD Tessa Additional provider(s): Did we miss something? If additional records are needed, please fax a request on office letterhead to [phone]. Please include the patient's name, date of b irth, fax number and type of information needed. Additional request can be made by email at [email or web address]. For general questions of information about electronic records sharing, call [phone]. MBLY PERSON Associated attestation - Kendra Buchanan MD - 07/16/2021 2:41 PM ASSEMBLY PERSON ATTESTATION I personally observed the resident performing the E/M, discussed case with resid ent, and concur with resident documentation of history, physical assessment and treatment plan unless otherwise noted. Staff name: Kendra Buchanan MD Date: 07/16/2021 * Johanna Denise RN - 07/14/2021 9:29 AM ASSEMBLY PERSON Case Management Progress Note NAME:Judith Sands : [...] Department of Case Management Pgr: [phone]: [phone] MBLY PERSON documented in this encounter Medications at Time [...] (AQUAPHOR) topically to oint affected area daily. Cjjlloklzdatw-Wy-Lxrd-Min Take by 0 erals (MULTIPLE VITAMIN, mouth. [...] Jensen Haley DO - 07/15/2021 7:57 AM ASSEMBLY PERSON Daily Progress Note Today's Date: 07/15/2021 Name: [...] results - MMPC - PRN antiemetics Jensen Rogel DO Sudha Pager: [phone] Buchanan Subjective: No acute [...] Type:: Agree With My Assessment? Yes 07/14/21 114 Wound Dressing Status Intact 07/14/212044 Wound Dressing and / or Treatment Dermabond 07/14/212044 Wound Drainage Amount None 07/14/212044 Wound Base Assessment Clean;Dry;Intact;[place] 07/14/212044 Surrounding Skin Assessment Dry;Intact;[place] 07/14/212044 Wound Site Closure Sutures;Wound Adhesive Bandage 07/14/212044 Number of days: 1 Jensen Haley DO Service Pager: # [phone] MBLY PERSON Associated attestation - Kendra Buchanan MD - 07/15/2021 1:33 PM ASSEMBLY PERSON ATTESTATION I personally observed the resident performing the E/M, discussed case with resid ent, and concur with resident documentation of history, physical assessment and treatment plan unless otherwise noted. Staff name: Kendra Buchanan MD Date: 07/15/2021 * Mike Leroy MD - 07/14/2021 1:48 PM ASSEMBLY PERSON Gastroenterology Progress Note Name: Judith Sands Today's Date: 07/14/2021 Assessment: Judith Sansd is a 60 y.o. female with history [...] LFTs GI will sign off. Please page engineering manager electronics fellow with any additional questions or co [...] GASTRIC BYPASS 2010 [facility] [place] CERVICAL DISC SURGERY 2013 3 discs fused together LEFT RADICAL VULVECTOMY WITH BILATERAL GROIN SENTINEL NODES BIOPSY Bilateral Performed by Matthew Booth MD at [facility] OR CARPAL TUNNEL RELEASE Right SECTION X3 [...] Staff name: Mike Leroy MD Date: 07/14/2021 MBLY PERSON * Jensen Haley DO - 07/14/2021 7:18 AM ASSEMBLY PERSON Daily Progress Note Today's Date: 07/14/2021 Name: [...] NPO since midnight Jensen Haley DO Pager: [phone] Buchanan Subjective: No acute [...] Wounds Jensen Haley DO Service Pager: # [phone] MBLY PERSON Associated attestation - Kendra Buchanan MD - 07/15/2021 1:00 PM ASSEMBLY PERSON I personally interviewed and examined the patient. [...] IOC a s well. Consent in chart. Kendra Buchanan MD * Aliyah Curiel OT - 07/14/2021 6:39 AM ASSEMBLY PERSON THERAPY NOTE Name: Judith Sands : 1960 Age : 60 y.o. Admission Date: 07/12/2021 LOS: 2 days PT/OT orders received. Therapies will follow-up 07/15 as Pt in OR at this time Therapist: Aliyah Curiel OT Date: 07/14/2021 MBLY PERSON * Jensen Haley DO - 07/13/2021 9:16 AM ASSEMBLY PERSON Daily Progress Note Today's Date: 07/13/2021 Name: [...] Continue inpatient care Jensen Haley DO Pager: [phone] Mascorro Subjective: No acute [...] Wounds Jensen Haley DO Service Pager: # [phone] MBLY PERSON * Rosa Isela Fernandez RT - 07/12/2021 6:13 AM ASSEMBLY PERSON RT Adult Assessment Note NAME:Judith Sands :1960 [...] Sounds: Clear (Implies normal) Respiratory Effort: Non-Labored MBLY PERSON documented in this encounter H&P Notes * Damian Gomez MD - 07/12/2021 2:53 AM ASSEMBLY PERSON Acute Care Surgery History and Physical Patient: Judith Sands, [id number] Admission Date: 07/12/2021, LOS: 0 days Admission [...] and lovenox Damian Gomez MD Service Pager: [phone] HPI: Judith Sands is a 60 y.o. female PMH of HTN and obesity s/p [place] [facility] [place] gastric bypass here with RUQ pain, elevated LFTs with concern for cholecystitis vs choledocolithiasis. She reports onset of pain while driving in the care [place] r[place] morning. She notes that it was a [...] GASTRIC BYPASS 2010 [place] - [place] CERVICAL DISC SURGERY 2013 3 discs fused together LEFT RADICAL VULVECTOMY WITH BILATERAL GROIN SENTINEL NODES BIOPSY Bilateral 04/24/2019 Performed by Matthew Booth MD at [facility] OR CARPAL TUNNEL RELEASE Right SECTION X3 [...] 100 mg capsule Take one capsule by [facility] every 12 hours. Take with food. nystatin [...] LIMITED (Results Pending) Malnutrition Details: Active Wounds MBLY PERSON Associated attestation - Niraj Mascorro MD - 07/13/2021 9:55 AM ASSEMBLY PERSON ATTESTATION I personally performed the reyna portions of the E/M visit, discussed case with re sident and concur with resident documentation of history, physical exam, assessm ent, and treatment plan unless otherwise noted. Staff name: Niraj Mascorro MD Date: 07/13/2021 documented in this encounter Consult Notes * Mike Leroy MD - 07/12/2021 1:33 PM ASSEMBLY PERSON Associated Order(s): CONSULT GASTROENTEROLOGY PHYSICIAN Gastroenterology/Hepatology Consult Note Patient Name:Judith Sands Admission Date: 07/12/2021 1:14 AM Principal Problem: Abdominal pain Consult for: RUQ pain, elevated transaminases History of Present Illness/Subjective: Judith Sands is a 60 y.o. female with history of HTN, obesity s/p RYGB. Harmony rios presented to the hospital with complaints of [...] oint Apply topically to affected area daily. Mpetfafjdmaju-Mi-Kaqs-Minerals (MULTIPLE VITAMIN, WOMENS) tab Take by mouth. [...] 2010 GASTRIC BYPASS 2010 [facility] CERVICAL DISC SURGERY 2014 3 discs fused together LEFT RADICAL VULVECTOMY WITH BILATERAL GROIN SENTINEL NODES BIOPSY Bilateral Performed by Matthew Booth MD at [facility] OR CARPAL TUNNEL RELEASE Right SECTION X3 [...] Staff name: Mike Leroy MD Date: 07/12/2021 MBLY PERSON documented in this encounter OR Notes * Operative Report (Direct Entry) - Kendra Buchanan MD - 07/14/2021 10:33 AM ASSEMBLY PERSON OPERATIVE REPORT Name: Judith Sands is a 60 y.o. female : 1960 DATE OF OPERATION: 07/14/2021 Bill Area: [facility] Surgeon(s) and Role: * Kendra Buchanan MD - Primary * Sammi Grey [...] timeout was performed confirming the [facility] patient and procedure. A supraumbilical incision [...] intraoperative cholangiogram, a cholangiocatheter was threaded through a t appeared to be the cystic duct. [...] PACU - stable Sammi Grey MD Pager [phone] ATTESTATION I performed this procedure with a resident. Staff name: Kendra Buchanan MD Date: 07/14/2021 MBLY PERSON documented in this encounter Miscellaneous Notes * Care Plan - Michelle Gómez RN - 07/15/2021 2:51 AM ASSEMBLY PERSON Problem: Infection, Risk of, Urinary Catheter-Associated Urinary Tract Infection Goal: Absence of urinary catheter-associated infection Outcome: Goal Achieved MBLY PERSON * Transfer - Dior Solitario - 07/14/2021 11:39 AM ASSEMBLY PERSON Post op report given to Gilda Esparza RN on unit 51. MBLY PERSON documented in this encounter Plan of Treatment Order Schedule Name Type Priority Associated Diag noses Expected: 07/31/2021 (Approximate), Expi res: 07/15/2022 COMPREHENSIVE METABOLIC Lab Routine Gallst one pancreatitis PANEL Expected: 07/31/2021 (Approximate), Expi res: 07/15/2022 CBC Lab Routine Gallstone pancr eatitis documented as of this encounter Procedures Comments Procedure Name Priority Date/Time Associated Diag nosis HC CBC,AUTOMATED Routine 07/15/2021 9:05 AM ASSEMBLY PERSON HC PHOSPHOROUS, SERUM Routine 07/15/2021 9:05 AM ASSEMBLY PERSON HC MAGNESIUM Routine 07/15/2021 9:05 AM ASSEMBLY PERSON HC COMPREHENSIVE Routine 07/15/2021 METABOLIC PANEL 9:05 AM ASSEMBLY PERSON HC LEV III SRG PTH, GROSS Routine 07/14/2021 Pain of upper abdomen & MICRO 10:07 AM ASSEMBLY PERSON FLUORO MOBILE IN OR Routine 07/14/2021 10:00 AM ASSEMBLY PERSON LAPAROSCOPIC 07/14/2021 Pain of upper abdom en CHOLECYSTECTOMY 8:24 AM ASSEMBLY PERSON HC PT(INR) 07/14/2021 7:20 AM ASSEMBLY PERSON HC CBC,AUTOMATED 07/14/2021 7:20 AM ASSEMBLY PERSON HC PHOSPHOROUS, SERUM 07/14/2021 7:19 AM ASSEMBLY PERSON HC MAGNESIUM 07/14/2021 7:19 AM ASSEMBLY PERSON HC LIPASE Add on 07/14/2021 7:19 AM ASSEMBLY PERSON HC COMPREHENSIVE Routine 07/14/2021 METABOLIC PANEL 7:19 AM ASSEMBLY PERSON CONSULT VASCULAR ACCESS STAT 07/14/2021 TEAM 6:43 AM ASSEMBLY PERSON HC PT(INR) Routine 07/13/2021 6:24 AM ASSEMBLY PERSON HC CBC,AUTOMATED Routine 07/13/2021 6:24 AM ASSEMBLY PERSON HC PHOSPHOROUS, SERUM Routine 07/13/2021 6:24 AM ASSEMBLY PERSON HC MAGNESIUM Routine 07/13/2021 6:24 AM ASSEMBLY PERSON HC COMPREHENSIVE Routine 07/13/2021 METABOLIC PANEL 6:24 AM ASSEMBLY PERSON MRI MRCP STAT 07/12/2021 8:00 PM ASSEMBLY PERSON HC PHOSPHOROUS, SERUM Routine 07/12/2021 4:55 AM ASSEMBLY PERSON HC MAGNESIUM Routine 07/12/2021 4:55 AM ASSEMBLY PERSON HC LIPASE STAT 07/12/2021 4:55 AM ASSEMBLY PERSON HC COMPREHENSIVE Routine 07/12/2021 METABOLIC PANEL 4:55 AM ASSEMBLY PERSON HC PT(INR) Routine 07/12/2021 3:30 AM ASSEMBLY PERSON HC CBC,AUTOMATED Routine 07/12/2021 3:30 AM ASSEMBLY PERSON TYPE & CROSSMATCH STAT 07/12/2021 3:30 AM ASSEMBLY PERSON US ABDOMEN LIMITED Routine 07/12/2021 2:51 AM ASSEMBLY PERSON TELEMETRY STRIPS-SCAN 07/12/2021 12:[address] CHEST/ABD/PEL EXTERNAL Routine 07/11/2021 IMAGING 7:[address] ABD/PEL EXTERNAL Routine 07/11/2021 IMAGING 12:00 AM ASSEMBLY PERSON documented in this encounter Results * CBC (07/15/2021 9:05 AM ASSEMBLY PERSON) White Blood 10.3 4.5 - 11.0 K/UL [...] LAB Specimen Blood (substance) Performing Organization Address City/State/ZIP Code P tatianna Number MAIN LAB [address] [place] [address] * MAGNESIUM (07/15/2021 9:05 AM ASSEMBLY PERSON) Magnesium 1.8 1.6 - 2.6 mg/dL [facility] Specimen Blood (substance) Performing Organization Address [facility] P tatianna Number [facility]IN [facility] [address] [place] [address] * (ABNORMAL) COMPREHENSIVE METABOLIC PANEL (07/15/2021 9:05 AM ASSEMBLY PERSON) Sodium 139 137 - 147 MMOL/L [facility] [...] equation Specimen Blood (substance) Performing Organization Address [facility]/ZIP Code P tatianna Number [facility] [address] [place] [address] * PHOSPHORUS (07/15/2021 9:05 AM ASSEMBLY PERSON) Phosphorus 2.3 2.0 - 4.5 MG/DL [facility] Specimen Blood (substance) Performing Organization Address [facility] Code P tatianna Number [facility]IN [facility] [address] [place] [phone] * SURGICAL PATHOLOGY (07/14/2021 10:07 AM ASSEMBLY PERSON) PATHOLOGY [facility] [email or web address] Department of Pathology and Laboratory Medicine [address] [place] [address] Surgical Pathology Office: [phone] SURGICAL PATHOLOGY REPORT NAME: JUDITH SANDS SURG PATH #: [id number] MR #: [id number] SPECIMEN CLASS: SR BILLING #: [id number] ALT ID #: LOCATION: DISCHARGED DATE OF [...] above Lymph Node Identified: No Cassette A1- Acid Crane Operator section of gallbladder body and fundus and a shave of the possible cystic duct at the resection margin (inked black). ([facility]) [facility]/07/14/2021 Specimen Tissue - Specimen from gallbladder (specimen) Performing Organization Address City/[facility]/ZIP Code P tatianna Number [facility] MAIN [facility] [address] [place] [address] * FLUORO MOBILE IN OR (07/14/2021 10:00 AM ASSEMBLY PERSON) Modality Anatomical Region Laterality Radiographic Imaging Specimen Narrative [facility] - 07/14/2021 10:01 AM ASSEMBLY PERSON This order has been auto finalized and does not contain a result. Performing Organization Address City/[facility]/ZIP Code P tatianna Number [facility] * PROTIME INR (PT) (07/14/2021 7:20 AM ASSEMBLY PERSON) INR 1.1 0.8 - 1.2 [facility] Specimen Performing Organization Address [facility] P tatianna Number [facility] [address] [place] [address] * (ABNORMAL) CBC (07/14/2021 7:20 AM ASSEMBLY PERSON) White Blood 8.6 4.5 - 11.0 K/UL [...] [facility]IN [facility] Specimen Performing Organization Address [facility] Code P tatianna Number [facility] [address] [place] [address] * PHOSPHORUS (07/14/2021 7:19 AM ASSEMBLY PERSON) Phosphorus 2.7 2.0 - 4.5 MG/DL [facility] Specimen Performing Organization Address City/[facility]/ZIP Code P tatianna Number [facility] [address] [place] [address] * MAGNESIUM (07/14/2021 7:19 AM ASSEMBLY PERSON) Magnesium 1.9 1.6 - 2.6 mg/dL [facility] Specimen Performing Organization Address City/[facility]/ZIP Code P tatianna Number [facility] [address] [place] [address] * (ABNORMAL) LIPASE (07/14/2021 7:19 AM ASSEMBLY PERSON) Lipase 532 (H) 11 - 82 U/L [facility] Specimen Performing Organization Address [facility] P tatianna Number [facility] [address] [place] [phone] * (ABNORMAL) COMPREHENSIVE METABOLIC PANEL (07/14/2021 7:19 AM ASSEMBLY PERSON) Sodium 137 137 - 147 MMOL/L [facility] [...] equation Specimen Blood (substance) Performing Organization Address [facility]/ZIP Code P tatianna Number [facility] [address] [place] [address] * PROTIME INR (PT) (07/13/2021 6:24 AM ASSEMBLY PERSON) INR 1.1 0.8 - 1.2 [facility] Specimen Blood (substance) Performing Organization Address [facility] P tatianna Number [facility] [address] [place] [phone] * PHOSPHORUS (07/13/2021 6:24 AM ASSEMBLY PERSON) Phosphorus 3.0 2.0 - 4.5 MG/DL [facility] Specimen Blood (substance) Performing Organization Address [facility] P tatianna Number [facility] [address] [place] [phone] * MAGNESIUM (07/13/2021 6:24 AM ASSEMBLY PERSON) Magnesium 1.6 1.6 - 2.6 mg/dL [facility] Specimen Blood (substance) Performing Organization Address [facility] P tatianna Number [facility] [address] [place] [address] * (ABNORMAL) COMPREHENSIVE METABOLIC PANEL (07/13/2021 6:24 AM ASSEMBLY PERSON) Sodium 142 137 - 147 MMOL/L [facility] [...] P tatianna Number [facility] [address] [place] [phone] * CBC (07/13/2021 6:24 AM ASSEMBLY PERSON) White Blood 7.5 4.5 - 11.0 K/UL [...] LAB Specimen Blood (substance) Performing Organization Address [facility]/ZIP Code P tatianna Number [facility] [address] [place] [address] * MRI MRCP (07/12/2021 8:00 PM ASSEMBLY PERSON) Modality Anatomical Region Laterality Magnetic Resonance Abdomen Specimen Impressions [facility] RESULTS - 07/13/2021 7:12 AM ASSEMBLY PERSON 1. Upper limits normal caliber of the [...] [facility] RESULTS - 07/13/2021 7:12 AM ASSEMBLY PERSON MRI ABDOMEN AND MRCP Clinical Indication: 60-year-old [...] on 07/13/2021 7:03 AM. Performing Organization Address [facility] Code P tatianna Number [facility] RAD RESULTS * (ABNORMAL) LIPASE (07/12/2021 4:55 AM ASSEMBLY PERSON) Lipase >3000 (H) 11 - 82 U/L [facility] Specimen Performing Organization Address [facility] P tatianna Number [facility] [address] [place] [address] * PHOSPHORUS (07/12/2021 4:55 AM ASSEMBLY PERSON) Phosphorus 3.5 2.0 - 4.5 MG/DL [facility] Specimen Blood (substance) Performing Organization Address [facility] P tatianna Number [facility] [address] [place] [address] * MAGNESIUM (07/12/2021 4:55 AM ASSEMBLY PERSON) Magnesium 2.0 1.6 - 2.6 mg/dL [facility] Specimen Blood (substance) Performing Organization Address [facility] P tatianna Number [facility] [address] [place] [address] * (ABNORMAL) COMPREHENSIVE METABOLIC PANEL (07/12/2021 4:55 AM ASSEMBLY PERSON) Sodium 141 137 - 147 MMOL/L [facility] [...] equation Specimen Blood (substance) Performing Organization Address City/[facility]/ZIP Code P tatianna Number [facility] [address] [place] [address] * PROTIME INR (PT) (07/12/2021 3:30 AM ASSEMBLY PERSON) INR 1.0 0.8 - 1.2 MAIN LAB Specimen Blood (substance) Performing Organization Address [facility]/ZIP Code P tatianna Number [facility] [address] [place] [address] * (ABNORMAL) CBC (07/12/2021 3:30 AM ASSEMBLY PERSON) White Blood 9.8 4.5 - 11.0 K/UL [...] LAB Specimen Blood (substance) Performing Organization Address City/State/ZIP Code P tatianna Number [facility] [address] [place] [address] * TYPE & CROSSMATCH (07/12/2021 3:30 AM ASSEMBLY PERSON) Units Ordered 0 [facility] Crossmatch 07/15/2021,2359 [facility] Expires Record Check FOUND [facility] ABO/RH(D) O POS [facility] Antibody Screen NEG [facility] Electronic YES [facility] Crossmatch Specimen Performing Organization Address City/State/ZIP Code P tatianna Number [facility] [address] [place] [address] * US ABDOMEN LIMITED (07/12/2021 2:51 AM ASSEMBLY PERSON) Modality Anatomical Region Laterality Ultrasound Abdomen Specimen Impressions [facility] RESULTS - 07/12/2021 8:56 AM ASSEMBLY PERSON 1. Cholelithiasis with mild gallbladder wall edema [...] [facility] RAD RESULTS - 07/12/2021 8:56 AM ASSEMBLY PERSON ABDOMINAL ULTRASOUND CLINICAL INDICATION: Female, 60 years [...] RESULTS * TELEMETRY STRIPS-SCAN (07/12/2021 12:00 AM ASSEMBLY PERSON) Narrative 07/12/2021 12:00 AM ASSEMBLY PERSON Ordered by an unspecified provider. * CT CHEST/ABD/PEL EXTERNAL IMAGING (07/11/2021 7:35 PM ASSEMBLY PERSON) Modality Anatomical Region Laterality Computed Radiography Specimen Narrative Scheduling, Silent - 07/13/2021 4:57 AM ASSEMBLY PERSON This order has been auto finalized and does not contain a result. * CT ABD/PEL EXTERNAL IMAGING (07/11/2021 12:00 AM ASSEMBLY PERSON) Modality Anatomical Region Laterality Computed Radiography Specimen Narrative Scheduling, Silent - 07/12/2021 7:19 AM ASSEMBLY PERSON This order has been auto finalized and does not contain a result. documented in this encounter Visit Diagnoses Diagnosis Abdominal pain - Primary Abdominal pain, unspecified site Pain of upper abdomen Abdominal pain, other specified site Gallstone pancreatitis Acute pancreatitis Pain of upper abdomen Abdominal pain, other specified site documented in this encounter Admitting Diagnoses Diagnosis Abdominal pain Abdominal pain, unspecified site documented in this encounter Administered Medications Action Date Dose Rate Site Medication Order MAR Action 07/15/2021 11:36 AM ASSEMBLY PERSON 325 mg acetaminophen (TYLENOL) tablet 325 mg Given 325 mg, Oral, EVERY 4 HOURS PRN, Starting on 07/13/21 at 1200, Until Tu07/15/21 at 1350, Pain non-opioid: may be used alone or in combination wit h opioid analgesia, TOTAL ACETAMINOPHEN DOSE NOT TO EXCEED 4GM DAILY 325 mg Given 07/15/2021 6:06 AM ASSEMBLY PERSON 325 mg Given 07/14/2021 11:58 PM ASSEMBLY PERSON 325 mg Given 07/14/2021 7:55 PM ASSEMBLY PERSON 325 mg Given 07/13/2021 7:52 PM ASSEMBLY PERSON 07/14/2021 9:05 PM ASSEMBLY PERSON 40 mg Abdomina l Tissue enoxaparin (LOVENOX) [...] mg Arm, Right Given 07/13/2021 7:52 PM ASSEMBLY PERSON fentaNYL citrate PF (SUBLIMAZE) injection 25-50 mcg 25-50 mcg, Intravenous, EVERY 2 HOURS PRN, Starting on 07/13/21 at 1830, Until 07/15/21 at 1350, Pain Injectable 07/14/2021 9:06 PM ASSEMBLY PERSON 100 mg gabapentin (NEURONTIN) capsule 100 mg Given 100 mg, Oral, AT BEDTIME DAILY, First dose on 07/12/21 at 2100, Until Discontinued 100 mg Given 07/13/2021 7:53 PM ASSEMBLY PERSON 100 mg Given 07/12/2021 8:24 PM ASSEMBLY PERSON 07/13/2021 6:18 PM ASSEMBLY PERSON 10 mg hydrALAZINE (APRESOLINE) tablet 10 mg [...] monitoring time. Hold for HR > 100 07/15/2021 9:08 AM ASSEMBLY PERSON 25 mg hydroCHLOROthiazide (HYDRODIURIL) tablet Given 25 mg 25 mg, Oral, DAILY, First dose (after last modification) on Wed07/14/21 at 0900, Until Discontinued 25 mg Given 07/14/2021 12:44 PM ASSEMBLY PERSON hydrOXYzine HCL (ATARAX) tablet 25 mg 25 mg, Oral, THREE TIMES DAILY PRN, Starting on Wed07/15/21 at 0257, Until Wed07/15/21 at 1350, Itching PO 07/14/2021 10:00 AM ASSEMBLY PERSON 9 mL Other iopamidol 300 (ISOVUE-300) 61 % Given injection INTRA-PROCEDURE MED, Starting on Wed07/14/21 at 1000, Until Wed07/14/21 at 1039, Intra-op 07/14/2021 10:23 AM ASSEMBLY PERSON 17 mL Abdomina l Tissue lidocaine 1%/EPINEPHrine 1:100,000 Given injection INTRA-PROCEDURE MED, Starting on Wed07/14/21 at 1023, Until Wed07/14/21 at 1039, Intra-op ondansetron (ZOFRAN ODT) rapid dissolve tablet 4 mg 4 mg, Oral, EVERY 6 HOURS PRN, Startin g on Wed07/12/21 at 0117, Until Wed07/15/21 at 1350, Nausea/Vomiting PO, Place on tongue and allow to dissolve. 07/13/2021 12:10 PM ASSEMBLY PERSON 4 mg ondansetron (ZOFRAN) injection 4 mg Given 4 mg, Intravenous, EVERY 6 HOURS PRN, Starting on Wed07/12/21 at 0117, Until Wed07/15/21 at 1350, Nausea/Vomiting Injectable 4 mg Given 07/12/2021 1:28 AM ASSEMBLY PERSON 07/15/2021 11:36 AM ASSEMBLY PERSON 15 mg oxyCODONE (ROXICODONE) tablet 5-15 mg Given 5-15 mg, Oral, EVERY 4 HOURS PRN, Starting on 07/12/21 at 0117, Until Wed07/15/21 at 1350, Pain PO 15 mg Given 07/15/2021 6:06 AM ASSEMBLY PERSON 15 mg Given 07/14/2021 11:59 PM ASSEMBLY PERSON 5 mg Given 07/14/2021 5:33 PM ASSEMBLY PERSON 15 mg Given 07/14/2021 12:55 PM ASSEMBLY PERSON 10 mg Given 07/14/2021 3:23 AM ASSEMBLY PERSON 15 mg Given 07/13/2021 4:51 PM ASSEMBLY PERSON 15 mg Given 07/13/2021 11:20 AM ASSEMBLY PERSON 15 mg Given 07/12/2021 8:23 PM ASSEMBLY PERSON 15 mg Given 07/12/2021 8:51 AM ASSEMBLY PERSON 07/14/2021 9:06 PM ASSEMBLY PERSON [address] (PROTONIX) tablet 40 mg Given 40 mg, Oral, DAILY, First dose on 07/12/21 at 0300, Until Discontinued, D o not crush or chew tablet. 40 mg Given 07/13/2021 7:53 PM ASSEMBLY PERSON 40 mg Given 07/12/2021 8:24 PM ASSEMBLY PERSON 07/13/2021 2:25 PM ASSEMBLY PERSON 10 mg prochlorperazine (COMPAZINE) injection Given 10 mg 10 mg, Intravenous, EVERY 6 HOURS PRN, Starting on 07/12/21 at 0258, Until Wed07/15/21 at 1350, Nausea/Vomiting Injectable, PROTECT FROM LIGHT -- May b e given undiluted, or each 5mg may be diluted with 9 mL of NS to facilitate titration. 10 mg Given 07/12/2021 3:21 AM ASSEMBLY PERSON documented in this encounter Discontinued Medications Start Date End Date Medication Sig Discontinue Reason 05/09/2019 07/12/2021 trimethoprim/sulfamethoxa TK 2 TS PO Removed from zole (BACTRIM DS) 160/800 BID CLERICAL TRANSCRIBER Med List mg tablet 06/03/2021 07/12/2021 trimethoprim/sulfamethoxa Take one Removed from zole (BACTRIM DS) 160/800 tablet by CLERICAL TRANSCRIBER Med List mg tablet mouth twice daily. 04/25/2019 07/12/2021 senna (SENOKOT) 8.6 mg Take one Removed from tablet tablet by CLERICAL TRANSCRIBER Med List mouth daily as needed. 05/12/2019 [...] FOR DRY or around EYES OP) eye(s). Gqshwbolidisz-Cc-Piwj-Min Take by 0 erals (MULTIPLE VITAMIN, mouth. WOMENS) tab added in this encounter Active and Recently Administered Medications Times are shown in ASSEMBLY PERSON. 07/14/2021 07/15/2021 Medication Order 07/13/2021 acetaminophen (TYLENOL) tablet 650 mg 0801 (Given - (COMPLETED) Provider: Hattie 650 mg, Oral, ONCE, 1 dose, On Sahra Esparza RN) 07/13/21 at 0830, TOTAL ACETAMINOPHEN DOSE NOT TO EXCEED 4GM DAILY 1244 (Given - New Bag - Provider: Bruce Esparza RN)1733 (Given - New Bag - Provider: Hattie Esparza RN)2358 (Given - New Bag - Provider: Michelle Gómez, RN) 0519 (Given - New Bag - Provider: Tony Isaacs, RN) ampicillin/sulbactam (UNASYN) 1.5 g in sodium chloride 0.9% (NS) 100 mL IVPB (MB+) (COMPLETED) 1.5 g, Intravenous, 100 mL, Administer over 30 Minutes, EVERY 6 HOURS, 4 doses, First dose on Wed07/14/21 at 1145, Last dose on Wed07/15/21 at 0545 0630 (MAR Hold - Provider: Anthony, Orders Di scontinue - Reason: Patient not available/off unit)1203 (SEP Unhold - Provider: Anthony, Orders Discontinue)2104 (Given - Provider: Michelle Gómez [...] Oral, AT BEDTIME DAILY, First Provider: Hermila monreal dose on 07/12/21 at 2100, Until RAY Esparza)2032 Discontinued (Wasted - Provider: Wendy Driscoll RN) hydroCHLOROthiazide (HYDRODIURIL) tablet 0801 (Given - 12.5 mg (CANCELED) Provider: Hattie 12.5 mg, Oral, DAILY, First dose on Sat RAY Esparza) 07/12/21 at 1100, Until Discontinued hydroCHLOROthiazide (HYDRODIURIL) tablet 1048 (Given - 12.5 mg (COMPLETED) Provider: Hattie 12.5 mg, Oral, ONCE, 1 dose, On Clinton RAY Esparza) 07/13/21 at 1115 0630 (SEP Hold - Provider: Anthony, Orders Di scontinue - Reason: Patient not available/off unit)0900 (Planned Hold - Provider: Hattie Esparza RN)1203 (SEP Unhold - Provider: Anthony, Orders Discontinue)1244 (Given - Provider: Hattie Esparza RN) 0908 (Given - Provider: Loreto Pantoja) hydroCHLOROthiazide (HYDRODIURIL) table t 25 mg 25 mg, Oral, DAILY, First dose (after last modification) on 07/14/21 at 0900, Until Discontinued magnesium sulfate 4 g/50 mL IVPB 0951 (Given - New (COMPLETED) Bag - Provider: 4 g, Intravenous, 50 mL, Administer over Hattie R ivara, 4 Hours, ONCE, 1 dose, On 07/13/21 RN) at 0930, Each 1gm delivers 8.1 mEq Magnesium 0630 (MAR Hold - Provider: Anthony, Orders Di scontinue - Reason: Patient not available/off unit)1203 (MAR Unhold - Provider: Anthony, Orders Discontinue)210 (Given - Provider: Michelle Gómez, RAY) pantoprazole DR (PROTONIX) tablet 40 mg 1952 (Given - 40 mg, Oral, DAILY, First dose on Sat Provider: Hermila monreal 07/12/21 at 0300, Until Discontinued, Do Esparza, RN) 2033 not crush or chew tablet. (Wasted - Provider: Wendy Driscoll, RAY) potassium chloride in water IVPB 10 mEq 1039 (Given - New (COMPLETED) Bag - Provider: 10 mEq, Intravenous, 50 mL, Administer Hattie Timothy aurelio, over 120 Minutes, EVERY 2 HOURS, 1 RN) dose, First dose on 07/13/21 at 1030, NOTE: This is a HIGH ALERT Medication. potassium chloride in water IVPB 10 mEq 1336 (Given - New (COMPLETED) Bag - Provider: 10 mEq, Intravenous, 50 mL, Administer Hattie Timothy aurelio, RN over 120 Minutes, EVERY 2 HOURS, [...] - Provider: CONTINUOUS, Starting on 07/12/21 at [facility] er, 0130, Until 07/14/21 at 0129 RN)0919 [...] CONTINUOUS, Starting on 07/14/21 at 0630, Until 07/14/21 at 1033, Pre-Op 07/14/2021 07/15/2021 Medication Order 07/13/2021 0630 (MAR Hold - Provider: Anthony, Orders Di scontinue - Reason: Patient not available/off unit)1203 (MAR Unhold - Provider: Anthony, Orders Discontinue)1954 (Given - Provider: Hattie Esparza RN)2358 (Given - Provider: Michelle Gómez, RN) 0606 (Given - Provider: Michelle Gómez, RN)1 136 (Given - Provider: Sammi Delgado, RN) acetaminophen (TYLENOL) tablet 325 mg 1951 [...] Hattie 25-50 mcg, Intravenous, EVERY 1 HOUR Vilma, RAY)142 5 PRN, Starting on 07/12/21 at 0117, (Given - Prov ider: Until Wed07/13/21 at 1819, Pain Hattie Esparza, Injectable RN) 0630 (SEP Hold - Provider: Anthony, Orders Di scontinue - Reason: Patient not available/off unit)1203 (MAR Unhold - Provider: Anthony, Orders Discontinue) fentaNYL citrate PF (SUBLIMAZE) injection [...] 1350, Itching PO 1000 (Given - Provider: Kendra Buchanan MD) iopamidol 300 (ISOVUE-300) 61 % injection (CANCELED) INTRA-PROCEDURE MED, Starting on Wed07/14/21 at 1000, Until Wed07/14/21 at 1039, Intra-op 1023 (Given - Provider: Kendra Buchanan MD) lidocaine 1%/EPINEPHrine 1:100,000 injection (CANCELED) INTRA-PROCEDURE MED, Starting on 07/14/21 at 1023, Until Wed07/14/21 at 1039, Intra-op 0630 (SEP Hold - Provider: Anthony, Orders Di scontinue - Reason: Patient not available/off unit)1203 (SEP Unhold - Provider: Anthony, Orders Discontinue) ondansetron (ZOFRAN ODT) rapid dissolve 1210 (See tablet 4 mg(Linked Group 1) Alternative - 4 mg, Oral, EVERY 6 HOURS PRN, Starting Provider: Vivien agarwal on 07/12/21 at 0117, Until Tiffani Mann RN) 07/15/21 at 1350, Nausea/Vomiting PO, Place on tongue and allow to dissolve. 0630 (SEP Hold - Provider: Anthony, Orders Di scontinue - Reason: Patient not available/off unit)1203 (SEP Unhold - Provider: Anthony, Orders Discontinue) ondansetron (ZOFRAN) injection 4 1210 (Given - mg(Linked Group 1) Provider: Analia 4 mg, Intravenous, EVERY 6 HOURS PRN, RAY Mann) Starting on 07/12/21 at 0117, Until Wed07/15/21 at 1350, Nausea/Vomiting Injectable 0323 (Given - Provider: Wendy jaime RN)0630 (SEP Hold - Provider: Anthony, Orders Discontinue - Reason: Patient not available/off unit)1203 (SEP Unhold - Provider: Anthony, Orders Discontinue)1255 (Given - Provider: Hattie Esparza RN) 1733 (Given - Provider: Hattie Esparza, RAY)2359 (Given - Provider: Michelle Gómez, RN) 0606 (Given - Provider: Michelle Gómez, RN)1 136 (Given - Provider: Sammi Delgado, RAY) oxyCODONE (ROXICODONE) tablet 5-15 mg 1120 (Given - 5-15 mg, Oral, EVERY 4 HOURS PRN, Provider: Angela valderrama Starting on 07/12/21 at 0117, Until RAY Esparza)1 651 Wed07/15/21 at 1350, Pain PO (Given - Provider: Hattie Esparza RAY) 0630 (SEP Hold - Provider: Anthony, Orders Di scontinue - Reason: Patient not available/off unit)1203 (SEP Unhold - Provider: Anthony, Orders Discontinue) prochlorperazine (COMPAZINE) injection 1425 (Given [...] Startin g on 07/12/21 at 0117, Until Tu07/15/21 at 1350, Nausea/Vomiting PO
Place on tongue a nd allow to dissolve.
Or ondansetron (ZOFRAN) injection 4 mgJump to med 4 mg, Intravenous, EVERY 6 HOURS PRN, Starting on 07/12/21 at 0117, Until Wed07/15/21 at 1350, Nausea/Vomiting Injectable documented in this encounter Orders First Ordered Date Medications Ordered That Might Not Have Count Last Ordered Date Been Administered hydrOXYzine HCL (ATARAX) tablet 25 mg 1 07/15/2021 ampicillin/sulbactam (UNASYN) 1.5 g in 1 07/14/2021 sodium chloride 0.9% (NS) 100 mL IVPB (MB+) diphenhydrAMINE HCL (BENADRYL) injection 1 07/14/2021 25 mg fentaNYL citrate PF (SUBLIMAZE) 1 2020 injection 25 mcg haloperidol lactate (HALDOL) injection 1 1 07/14/2021 mg HYDROmorphone injection (DILAUDID) 0.5 1 07/14/2021 mg 07/12/2021 lactated ringers infusion 2 07/14/2021 acetaminophen (TYLENOL) tablet 325 mg 1 07/13/2021 07/12/2021 acetaminophen (TYLENOL) tablet 650 mg 3 07/13/2021 07/12/2021 fentaNYL citrate PF (SUBLIMAZE) 2 2020 injection 25-50 mcg hydrALAZINE (APRESOLINE) injection 10 mg 1 07/13/2021 hydrALAZINE (APRESOLINE) tablet 10 mg 1 07/13/2021 07/12/2021 hydroCHLOROthiazide (HYDRODIURIL) tablet 2 07/13/2021 12.5 mg hydroCHLOROthiazide (HYDRODIURIL) tablet 1 07/13/2021 25 mg magnesium sulfate 4 g/50 mL IVPB 1 potassium chloride in water IVPB 10 mEq 3 07/13/2021 SODIUM CHLORIDE 0.9 % IV SOLP (Cabinet 2 07/13/2021 Override) enoxaparin (LOVENOX) syringe 40 mg 1 gabapentin (NEURONTIN) capsule 100 mg 1 07/12/2021 ondansetron (ZOFRAN ODT) rapid dissolve 1 07/12/2021 tablet 4 mg ondansetron (ZOFRAN) injection 4 mg 1 oxyCODONE (ROXICODONE) tablet 5-15 mg 1 07/12/[address] (PROTONIX) tablet 40 mg 1 07/12/2021 prochlorperazine (COMPAZINE) injection 1 07/12/2021 10 mg First Ordered Date Procedures Count Last [...] Date HEATING, MACHINE AK WITH PAD 1 PUMP IV ADD MOD(NO CTRL UNIT) [...] Concerns Noted Time Assessment 07/15/2021 9:08 AM ASSEMBLY PERSON A fall risk assessment has been complet ed for the patient 12/10/2020 12:49 PM CDT PHQ-2 Depression Total Score: 0 documented as of this encounter Care Teams Start Date End Date Dried Fruit Washer Relationship Specialty 07/03/20 Lulu Lloyd MD PCP - General [address] [id number] 01/24/16 Emily Caba MA Maternal and Medicine documented as of this encounter
--- OUTSIDE RECORDS SUMMARY | 2021-07-19 11:05 | XMS REPORT | Encounter Summary ---
Author Author [facility] Organization [facility] Address Unknown Phone Unavailable Care Team Providers Care Fixed Interest Dealer Name Role Phone Emily Caba MA Unavailable Unavailable Lulu Lloyd MD PCP Reason for Visit * Auth/Cert Diagnoses / Procedures Referred By Contact Referred To [facility] ct Specialty Diagnoses Abdominal pain abd pain, nausea Referral ID Status Reason Start Date Expiration Visits Vi sits Date Requested Authorized [id number] 1 1 Encounter Details Care Team Description Date Type Department Niraj Mascorro MD [address] [place] [address] 07/14/2021 Hospital Vascular Access Tea m: Encounter [facility] [place], [address], [address] [place] [address] Social History Date Tobacco Use Types Packs/Day [...] Recorded COVID-19 Exposure Response 07/11/2021 10:00 PM REGULATORY LEADER In the last month, have you been [...] impairment: No documented as of this encounter Medications at Time of Discharge [...] (AQUAPHOR) topically to oint affected area daily. Cotpooxtcwrrb-Qw-Bbog-Min Take by 0 erals (MULTIPLE VITAMIN, mouth. [...] 17 g packet packet by mouth daily. 05/12/2019 07/15/2021 oxyCODONE (ROXICODONE) 5 Take one 40 tablet 0 mg tabletIndications: tablet by Vulvar cancer (HCC), Pain mouth every 4 hours as needed documented as of this encounter Discharge Disposition Code Departure Means Destination Disposition Home Home or Self Care documented in this encounter Plan of Treatment Not on filedocumented as of this encounter Procedures Comments Procedure Name Priority Date/Time Associated Diag nosis CONSULT VASCULAR ACCESS STAT 07/14/2021 TEAM 6:43 AM REGULATORY LEADER documented in this encounter Visit Diagnoses Not on filedocumented in this encounter Orders First Ordered Date Procedures Count Last Ordered Date CONSULT VASCULAR ACCESS TEAM 1 documented in this encounter Additional Health Concerns Noted Time Assessment 07/14/2021 8:45 PM REGULATORY LEADER A fall risk assessment has been complet ed for the patient 12/10/2020 12:49 PM CDT PHQ-2 Depression Total Score: 0 documented as of this encounter Care Teams Start Date End Date Fixed Interest Dealer Relationship Specialty 07/03/20 Lulu Lloyd MD PCP - [address] [place] [address] 01/24/16 Emily Caba MA Maternal and Medicine documented as of this encounter
--- OUTSIDE RECORDS SUMMARY | 2021-07-19 11:05 | XMS REPORT | Encounter Summary ---
Author Author [facility] Organization [facility] Address Unknown Phone Unavailable Care Team Providers Care Internal Affairs Commander Name Role Phone Emily Caba MA Unavailable Unavailable Lulu Lloyd MD PCP Encounter Details Care Team Description Date Type Department Deborah Peterson, DO [address] [place] [address] 07/15/2021 Prep for Case XDD INT MED [facility] Level 4B [address] [place] [address] Social History Date Tobacco Use Types Packs/Day [...] Recorded COVID-19 Exposure Response 07/11/2021 10:00 PM GASTROENTEROLOGY TECHNICIAN In the last month, have you been [...] track (07/15/2021 No Michelle Gómez, 12:50 AM GASTROENTEROLOGY TECHNICIAN) RN Decrease pain Hospital On track (07/15/2021 No Hes Michelle bustos, 12:50 AM GASTROENTEROLOGY TECHNICIAN) RN Get Adequate Sleep Lifestyle On track (07/15/2021 No Michelle Gómez, 12:50 AM GASTROENTEROLOGY TECHNICIAN) RN documented as of this encounter Visit Diagnoses Not on filedocumented in this encounter Additional Health Concerns Noted Time Assessment 07/15/2021 9:08 AM GASTROENTEROLOGY TECHNICIAN A fall risk assessment has been complet ed for the patient 12/10/2020 12:49 PM CDT PHQ-2 Depression Total Score: 0 documented as of this encounter Care Teams Start Date End Date Internal Affairs Commander Relationship Specialty 07/03/20 Lulu Lloyd MD PCP - General [address] [address] 01/24/16 Emily Caba MA Maternal and Medicine documented as of this encounter
--- OUTSIDE RECORDS SUMMARY | 2021-07-19 11:06 | XMS REPORT | Encounter Summary ---
Author Author [facility] Organization [facility] Address Unknown Phone Unavailable Care Team Providers Care Agricultural Services Director Name Role Phone Rosales Emily JAMES Unavailable Unavailable Lulu Lloyd MD PCP Reason for Visit * Reason Comments Lichen Sclerosus 4 month f/u Encounter Details Care Team Description Date Type Department Brandie Pineda MD [address] [facility] Lvl [address] [place] [address] Lichen sclerosus et atrophicus of the vu lva (Primary Dx); Urgency of micturition; Allergic dermatitis due to other chemical product; Vaginal itching 05/28/2021 Office Visit Obstetrics and Gynecology: [facility] [address] [place] [address] Social History Date Tobacco Use Types Packs/Day [...] PM CDT Date Recorded COVID-19 Exposure Response 05/28/2021 10:16 AM REAL ESTATE INTERNSHIP In the last month, have you been in contact with No / Unsure someone who was confirmed or suspected to have Coronavirus / COVID-19? documented as of this encounter Last Filed Vital Signs Reading Time Taken Comments Vital Sign 133/76 05/28/2021 10:24 AM REAL ESTATE INTERNSHIP Blood Pressure 58 05/28/2021 10:24 AM REAL ESTATE INTERNSHIP Pulse 36.1 C (97 F) 05/28/2021 10:24 AM REAL ESTATE INTERNSHIP Temperature 16 05/28/2021 10:24 AM REAL ESTATE INTERNSHIP Respiratory Rate 98% 05/28/2021 10:24 AM REAL ESTATE INTERNSHIP Oxygen Saturation - - Inhaled Oxygen Concentration 99 kg (218 lb 3.2 oz) 05/28/2021 10:24 AM REAL ESTATE INTERNSHIP Weight 165.1 cm (5' 5") 05/28/2021 10:24 AM REAL ESTATE INTERNSHIP Height 36.31 05/28/2021 10:24 AM REAL ESTATE INTERNSHIP Body Mass Index documented in this encounter [...] impairment: No documented as of this encounter Ordered Prescriptions Start Date End Date Prescription Sig Dispensed Refills 05/28/2021 clobetasoL (TEMOVATE) For flares: 60 g 1 0.05 % topical ointment Apply clobetasol twice daily for 2-6 weeks until you feel better then taper to at night for 1 week then every other day for 1 week then twice weekly for maintenance documented in this encounter Progress Notes * Brandie Pineda MD - 05/28/2021 11:00 AM REAL ESTATE INTERNSHIP Date of Service: 05/28/2021 Subjective: Judith Sands is a 60 y.o. female. History of Present Illness Referred by Chen[place] lichen sclerosus. History of vulvar cancer status post radical vulvectomy. History of hysterectomy and bilateral salpingo -oophorectomy. Biopsies were done in June 2020 after her radical vulvectom y that came back lichen sclerosis. Contact dermatitis with suspected allergic vulvitis. Saw allergy and recommended patch testing-did not schedule yet Not using clobetasol Uses aquafor occasionally Irritation and itchiness present No bleeding or dc Pressure sensation at urethral meatus Review of Systems Constitutional: Negative. Negative for fatigue, fever and unexpected weight carolina nge. HENT: Negative. Eyes: Negative. Respiratory: Negative. Negative for cough and shortness of breath. Cardiovascular: Negative. Negative for chest pain and leg swelling. Gastrointestinal: Negative. Negative for abdominal pain, blood in stool, consti pation, diarrhea, nausea and vomiting. Endocrine: Negative. Genitourinary: Negative. Negative for difficulty urinating, dyspareunia, dysuri a, enuresis, frequency, genital sores, hematuria, menstrual problem, pelvic pain , urgency, vaginal bleeding, vaginal discharge and vaginal pain. Musculoskeletal: Positive for arthralgias and back pain. Skin: Negative. Allergic/Immunologic: Negative. Neurological: Negative. Negative for light-headedness and headaches. Hematological: Negative for adenopathy. Bruises/bleeds easily. Psychiatric/Behavioral: Negative. Negative for confusion. The patient is not ne rvous/anxious. All other systems reviewed and are negative. Medical History: Diagnosis Date Carpal tunnel syndrome on right Heart murmur History of neck pain s/p cervical disc surgery Hypertension Lichen sclerosus et atrophicus of the vulva 06/2020 biopsy confirmed Memory loss As per patient, family history of alzheimer's Obesity, Class II, BMI 35-39.9 Vulvar cancer (HCC) Surgical History: Procedure Laterality Date HX KAYLA AND BSO 2010 GASTRIC BYPASS 2011 [facility] CERVICAL DISC SURGERY 2014 3 discs fused together LEFT RADICAL VULVECTOMY WITH BILATERAL GROIN SENTINEL NODES BIOPSY Bilateral 04/24/2019 Performed by Matthew Booth MD at [facility] OR CARPAL TUNNEL RELEASE Right SECTION X3 HX HYSTERECTOMY Social History Tobacco Use Smoking status: Former Smoker Smokeless tobacco: Never Used Tobacco comment: as a teenager Vaping Use Vaping Use: Never used Substance Use Topics Alcohol use: Never Drug use: Never Family History Problem Relation Age of Onset Diabetes Mother Heart Disease Mother Stroke Mother Diabetes Father Kidney Disease Father Heart Disease Father Arthritis Father Objective: acetaminophen (TYLENOL) 325 mg tablet Take two tablets by mouth every 6 hour s as needed for Pain. atorvastatin (LIPITOR) 10 mg tablet atorvastatin 10 mg tablet TAKE 1 TABLET BY MOUTH EVERY DAY AUVI-Q 0.3 mg/0.3 mL auto-injector Inject 0.3 mg (1 Pen) into thigh if neede d for anaphylactic reaction. May repeat in 5-15 minutes if needed. betamethasone dipropionate (DIPROLENE) 0.05 % topical ointment betamethasone dipropionate 0.05 % topical ointment APPLY TOPICALLY TO THE AFFECTED AREA EVERY DAY NEEDED betamethasone dipropionate 0.05 % topical cream Apply a thin layer of cream to affected area once daily. May increase to twice daily if needed. Do not use m ore than 14 days. clobetasoL (TEMOVATE) 0.05 % topical ointment For flares: Apply clobetasol t wice daily for 2-6 weeks until you feel better then taper to at night for 1 week then every other day for 1 week then twice weekly for maintenance estradioL (ESTRACE) 0.01 % (0.1 mg/g) vaginal cream Apply 1 gram vaginally a nd 1 grams to the vaginal opening at night for 2 weeks then twice a week gabapentin (NEURONTIN) 100 mg capsule 100 mg every night at bedtime hydroCHLOROthiazide (HYDRODIURIL) 25 mg tablet Take 25 mg by mouth daily as needed. nitrofurantoin monohyd/m-cryst (MACROBID) 100 mg capsule Take one capsule by mouth every 12 hours. Take with food. nystatin (MYCOSTATIN) 100,000 unit/g topical ointment Apply twice daily for 2-4 weeks. oxyCODONE (ROXICODONE) 5 mg tablet Take one tablet by mouth every 4 hours as needed senna (SENOKOT) 8.6 mg tablet Take one tablet by mouth daily as needed. trimethoprim/sulfamethoxazole (BACTRIM DS) 160/800 mg tablet TK 2 TS PO BID Vitals: 05/28/21 1024 BP: 133/76 Pulse: 58 Resp: 16 Temp: 36.1 C (97 F) SpO2: 98% Weight: 99 kg (218 lb 3.2 oz) Height: 165.1 cm (65") PainSc: Zero Body mass index is 36.31 kg/m. Physical Exam Normal external female genitalia Vulva lichenification and erythema present Vagina physiologic d/c no lesions no cystocele no rectocele Cervix os, no lesions, no dischage at os no cmt Uterus A/V 6cm, mobile NT Ad no masses NT mobile Assessment and Plan: GSM cont E2 BIW LS/hx SCCA no evidence FARIDA or SCCA Contact dermatitis clobetasol BID x 2 weeks then biw; aquafor daily Urged get patch testing to identify allergens Pruritis check yeast cx Urgency check urine C&S Total Time Today was 40 minutes in the following activities: Preparing to see e patient, Obtaining and/or reviewing separately obtained history, Performing a medically appropriate examination and/or evaluation, Counseling and educating e patient/family/caregiver, Ordering medications, tests, or procedures and Docum enting clinical information in the electronic or other health record ESTATE INTERNSHIP documented in this encounter Miscellaneous Notes * Patient Instructions - Brandie Pineda MD - 05/28/2021 11:00 AM REAL ESTATE INTERNSHIP Use clobetasol and apply to the vulva twice a day for 2 weeks then apply clobeta katya twice a week and Aquafor on the other days Get skin patch testing when you can For flares: Apply clobetasol twice daily for 2-6 weeks until you feel better then taper to a t night for 1 week then every other day for 1 week then twice weekly for mainten ance ESTATE INTERNSHIP documented in this encounter Plan of Treatment Not on filedocumented as of this encounter Results * (ABNORMAL) CULTURE-URINE W/SENSITIVITY (05/28/2021 11:18 AM REAL ESTATE INTERNSHIP) Battery Name URINE CULTURE [facility] Report Status FINAL 05/29/2021 MAIN LAB Specimen URINE MIDSTREAM MAIN LAB Description Special No special requests [facility] Requests Culture >100,000 CFU/ml MAIN LAB ESCHERICHIA COLI (A) Specimen Urine [...] 2: Susceptible Escherichia coli Performing Organization Address City/[facility] Code P tatianna Number [facility] [address] [place] [address] * (ABNORMAL) CULTURE-FUNGAL,OTHER (05/28/2021 10:15 AM REAL ESTATE INTERNSHIP) Battery Name FUNGUS CULTURE [facility] Report Status FINAL 06/02/2021 MAIN LAB Specimen SWAB VAGINAL MAIN LAB Description Special No special requests [facility] Requests Culture Light growth MAIN LAB HEIDI ALBICANS (A) Culture Two [...] 0.5: Susceptible Heidi parapsilosis Performing Organization Address [facility] P tatianna Number MAIN LAB [address] [place] [address] documented in this encounter Visit Diagnoses Diagnosis Lichen sclerosus et atrophicus of the v ulva - Primary Circumscribed scleroderma Urgency of micturition Allergic dermatitis due to other chemic al product Vaginal itching Pruritus of genital organs documented in this encounter Additional Health Concerns Noted Time Assessment 01/23/2021 3:31 PM CDT A fall risk assessment has been complet ed for the patient 12/10/2020 12:49 PM CDT PHQ-2 Depression Total Score: 0 documented as of this encounter Care Teams Start Date End Date Agricultural Services Director Relationship Specialty 07/03/20 Lulu Lloyd MD PCP - [address] [phone] 01/24/16 Emily Caba MA Maternal and Medicine documented as of this encounter
--- OUTSIDE RECORDS SUMMARY | 2021-07-19 11:06 | XMS REPORT | Encounter Summary ---
Author Author [facility] Organization [facility] Address Unknown Phone Unavailable Care Team Providers Care Advertising Specialist Name Role Phone Emily Caba MA Unavailable Unavailable Lulu Lloyd MD PCP Encounter Details Care Team Description Date Type Department Brandie Pineda MD [address] [facility] Lvl [address] [place] [address] 05/28/2021 Hospital Laboratory: [facility] [address], [place] [address] Social History Date Tobacco Use [...] Recorded COVID-19 Exposure Response 05/28/2021 10:16 AM VENUE COORDINATOR In the last month, have you been [...] Do not use more than 14 days. 05/28/2021 clobetasoL (TEMOVATE) For flares: 60 g 1 0.05 % topical ointment Apply clobetasol twice daily for 2-6 weeks until you feel better then taper to at night for 1 week then every other day for 1 week then twice weekly for maintenance 12/18/2020 gabapentin (NEURONTIN) 100 mg every 200 capsule 3 100 mg capsule night at bedtime 05/12/2018 hydroCHLOROthiazide Take 25 mg by 0 (HYDRODIURIL) 25 mg mouth daily tablet as needed. 01/24/2021 nitrofurantoin Take one 14 capsule 0 monohyd/m-cryst capsule by (MACROBID) 100 mg capsule mouth every 12 hours. Take with food. 01/24/2021 nystatin (MYCOSTATIN) Apply twice 30 g 0 100,000 unit/g topical daily for 2-4 ointment weeks. 01/14/2021 06/24/2021 estradioL (ESTRACE) 0.01 Apply 1 gram 42.5 g 3 % (0.1 mg/g) vaginal vaginally and cream 1 grams to the vaginal opening at night for 2 weeks then twice a week 05/12/2019 07/15/2021 oxyCODONE (ROXICODONE) 5 Take one 40 tablet 0 mg tabletIndications: tablet by Vulvar cancer (HCC), Pain mouth every 4 hours as needed 04/25/2019 07/12/2021 senna (SENOKOT) 8.6 mg Take one 90 tablet 3 tablet tablet by mouth daily as needed. 05/09/2019 07/12/2021 trimethoprim/sulfamethoxa TK 2 TS PO 0 zole (BACTRIM DS) 160/800 BID mg tablet documented as of this encounter Discharge Disposition Code Departure Means Destination Disposition Home Home or Self Care documented in this encounter Plan of Treatment Not on filedocumented as of this encounter Procedures Comments Procedure Name Priority Date/Time Associated Diag nosis CULTURE-URINE Routine 05/28/2021 Urgency of mict urition W/SENSITIVITY 11:18 AM VENUE COORDINATOR CULTURE-FUNGAL,OTHER Routine 05/28/2021 Vaginal i tching 10:15 AM VENUE COORDINATOR documented in this encounter Results * (ABNORMAL) CULTURE-URINE W/SENSITIVITY (05/28/2021 11:18 AM VENUE COORDINATOR) Battery Name URINE CULTURE MAIN LAB Report Status FINAL 05/29/2021 [facility] Specimen URINE MIDSTREAM MAIN LAB [...] 2: Susceptible Escherichia coli Performing Organization Address City/[facility]/ZIP Code P tatianna Number MAIN LAB [address] [place] [address] * (ABNORMAL) CULTURE-FUNGAL,OTHER (05/28/2021 10:15 AM VENUE COORDINATOR) Battery Name FUNGUS CULTURE [facility] Report Status FINAL 06/02/2021 [facility] Specimen SWAB VAGINAL [facility] Description Special No special requests [facility] Requests Culture Light growth [facility] HEIDI ALBICANS (A) Culture Two colonies [facility] HEIDI PARAPSILOSIS (A)Comment: Susceptibility intended for research use only. Specimen Swab Antibiotic Method Susceptibility Organism Micafungin EMELIA (MCG/ML), INTERPRETATION, YST <=0.008: Susceptible Heidi albicans Fluconazole EMELIA (MCG/ML), INTERPRETATION, YST 1.0: Susceptible Heidi albicans Micafungin EMELIA (MCG/ML), INTERPRETATION, YST 2.0: Susceptible Heidi parapsilosis Fluconazole EMELIA (MCG/ML), INTERPRETATION, YST 0.5: Susceptible Heidi parapsilosis Performing Organization Address City/[facility] P tatianna Number MAIN LAB [address] [place] [address] documented in this encounter Visit Diagnoses Diagnosis Urgency of micturition Vaginal itching Pruritus of genital organs documented in this encounter Additional Health Concerns Noted Time Assessment 01/23/2021 3:31 PM CDT A fall risk assessment has been complet ed for the patient 12/10/2020 12:49 PM CDT PHQ-2 Depression Total Score: 0 documented as of this encounter Care Teams Start Date End Date Advertising Specialist Relationship Specialty 07/03/20 Lulu Lloyd MD PCP - [address] [phone] 01/24/16 Emily Caba MA Maternal and Medicine documented as of this encounter
--- OUTSIDE RECORDS SUMMARY | 2021-07-19 11:06 | XMS REPORT | Encounter Summary ---
Author Author [facility] Organization [facility] Address Unknown Phone Unavailable Care Team Providers Care Old Coin Dealer Name Role Phone Rosales Emily JAMES Unavailable Unavailable Lulu Lloyd MD PCP Reason for Visit * Reason Comments Medication Refill Encounter Details Care Team Description Date Type Department Brandie Pineda MD [address] [facility] Lvl [address] [place] [address] 06/24/2021 Refill Obstetrics and Gynecology: [facility] [address] [place] [phone] Social History Date Tobacco Use Types Packs/Day [...] Recorded COVID-19 Exposure Response 05/28/2021 10:16 AM HOT DIP PLATING SUPERVISOR In the last month, have you been [...] Date End Date Prescription Sig Dispensed Refills 06/24/2021 estradioL (ESTRACE) 0.01 APPLY 1 GRAM 42.5 g 3 % (0.1 mg/g) vaginal VAGINALLY TO cream VAGINAL OPENING AT NIGHT FOR 2 WEEKS THEN USE VAGINALLY 2 TIMES A WEEK documented in this encounter Plan of Treatment Not on filedocumented as of this encounter Visit Diagnoses Not on filedocumented in this encounter Discontinued Medications Start Date End Date Medication Sig Discontinue Reason 01/14/2021 06/24/2021 estradioL (ESTRACE) 0.01 Apply 1 gram % (0.1 mg/g) vaginal vaginally cream and 1 grams to the vaginal opening at night for 2 weeks then twice a week documented as of this encounter Additional Health Concerns Noted Time Assessment 01/23/2021 3:31 PM CDT A fall risk assessment has been complet ed for the patient 12/10/2020 12:49 PM CDT PHQ-2 Depression Total Score: 0 documented as of this encounter Care Teams Start Date End Date Old Coin Dealer Relationship Specialty 07/03/20 Lulu Lloyd MD PCP - [address] [phone] 01/24/16 Emily Caba MA Maternal and Medicine documented as of this encounter
--- OUTSIDE RECORDS SUMMARY | 2021-07-19 11:06 | XMS REPORT | Encounter Summary ---
Author Author [facility] Organization [facility] Address Unknown Phone Unavailable Care Team Providers Care Mold Insert Changer Name Role Phone Emily Caba MA Unavailable Unavailable Lulu Lloyd MD PCP Encounter Details Care Team Description Date Type Department 07/11/2021 Travel Social History Date Tobacco Use Types Packs/Day [...] Recorded COVID-19 Exposure Response 07/11/2021 10:00 PM CERTIFIED FRAUD EXAMINER In the last month, have you been [...] encounter Care Teams Start Date End Date Mold Insert Changer Relationship Specialty 07/03/20 Lulu Lloyd MD PCP - [address] [phone] 01/24/16 Emily Caba MA Maternal and Medicine documented as of this encounter
--- OUTSIDE RECORDS SUMMARY | 2021-07-19 11:06 | XMS REPORT | Encounter Summary ---
Author Author [facility] Organization [facility] Address Unknown Phone Unavailable Care Team Providers Care Transition Advisor Name Role Phone Emily Caba MA Unavailable Unavailable Lulu Lloyd MD PCP Encounter Details Care Team Description Date Type Department 07/11/2021 Hospital Imaging: [facility] [address], [address] [place] [address] Social History Date Tobacco Use [...] Date Recorded Female 11/02/2020 4:42 PM CDT documented as of this encounter Functional Status [...] (AQUAPHOR) topically to oint affected area daily. [id number] Take by 0 erals (MULTIPLE VITAMIN, mouth. [...] tablet tablet by mouth daily as needed. 06/03/2021 07/12/2021 trimethoprim/sulfamethoxa Take one 10 tablet 0 zole (BACTRIM DS) 160/800 tablet by mg tablet mouth twice daily. 05/09/2019 07/12/2021 trimethoprim/sulfamethoxa TK 2 TS PO 0 zole (BACTRIM DS) 160/800 BID mg tablet documented as of this encounter Discharge Disposition Code Departure Means Destination Disposition Home Home or Self Care documented in this encounter Plan of Treatment Not on filedocumented as of this encounter Procedures Comments Procedure Name Priority Date/Time Associated Diag nosis CT ABD/PEL EXTERNAL Routine 07/11/2021 IMAGING 12:00 AM STARS ANALYTICAL LEAD documented in this encounter Results * CT ABD/PEL EXTERNAL IMAGING (07/11/2021 12:00 AM STARS ANALYTICAL LEAD) Modality Anatomical Region Laterality Computed Radiography Specimen Narrative Scheduling, Silent - 07/12/2021 7:19 AM STARS ANALYTICAL LEAD This order has been auto finalized and does not contain a result. documented in this encounter Visit Diagnoses Not on filedocumented in this encounter Additional Health Concerns Noted Time Assessment 01/23/2021 3:31 PM CDT A fall risk assessment has been complet ed for the patient 12/10/2020 12:49 PM CDT PHQ-2 Depression Total Score: 0 documented as of this encounter Care Teams Start Date End Date Transition Advisor Relationship Specialty 07/03/20 Lulu Lloyd MD PCP - [address] [phone] 01/24/16 Emily Caba MA Maternal and Medicine documented as of this encounter
--- OUTSIDE RECORDS SUMMARY | 2021-07-19 11:06 | XMS REPORT | Encounter Summary ---
Author Author [facility] Organization [facility] Address Unknown Phone Unavailable Care Team Providers Care Violin Teacher Name Role Phone Rosales Emily RAMIREZ Unavailable Unavailable Lulu Lloyd MD PCP Encounter Details Care Team Description Date Type Department Brandie Pineda MD [address] [facility] [address] [address] 06/09/2021 Orders Only Obstetrics and Gynecology: [facility] [address] [place] [address] Social History Date Tobacco Use [...] Exposure Response 05/28/2021 10:16 AM REAL ESTATE REP In the last month, have you been [...] Date End Date Prescription Sig Dispensed Refills 06/09/2021 fluconazole (DIFLUCAN) Take one 3 tablet 0 150 mg tablet tablet by mouth every 3 days for 3 doses. documented in this encounter Plan of Treatment Not on filedocumented as of this encounter Visit Diagnoses Not on filedocumented in this encounter Discontinued Medications Start Date End Date Medication Sig Discontinue Reason 06/06/2021 06/09/2021 fluconazole (DIFLUCAN) Take one Reorder 150 mg tablet tablet by mouth every 3 days for 3 doses. documented as of this encounter Additional Health Concerns Noted Time Assessment 01/23/2021 3:31 PM CDT A fall risk assessment has been complet ed for the patient 12/10/2020 12:49 PM CDT PHQ-2 Depression Total Score: 0 documented as of this encounter Care Teams Start Date End Date Violin Teacher Relationship Specialty 07/03/20 Lulu Lloyd MD PCP - [address] [phone] 01/24/16 Emily Caba MA Maternal and Medicine documented as of this encounter
--- OUTSIDE RECORDS SUMMARY | 2021-07-19 11:06 | XMS REPORT | Encounter Summary ---
Author Author [facility] Organization [facility] Address Unknown Phone Unavailable Care Team Providers Care Booky Name Role Phone Rosales Emily RAMIREZ Unavailable Unavailable Lulu Lloyd MD PCP Encounter Details Care Team Description Date Type Department Brandie Pineda MD [address] [facility] [address] [address] 06/03/2021 Orders Only Obstetrics and Gynecology: [facility] [address] [place] [address] Social History Date Tobacco Use [...] Recorded COVID-19 Exposure Response 05/28/2021 10:16 AM TOBACCO STEMMER In the last month, have you been [...] Date End Date Prescription Sig Dispensed Refills 06/03/2021 07/12/2021 trimethoprim/sulfamethoxa Take one 10 tablet 0 zole (BACTRIM DS) 160/800 tablet by mg tablet mouth twice daily. documented in this encounter Plan of Treatment Not on filedocumented as of this encounter Visit Diagnoses Not on filedocumented in this encounter Additional Health Concerns Noted Time Assessment 01/23/2021 3:31 PM CDT A fall risk assessment has been complet ed for the patient 12/10/2020 12:49 PM CDT PHQ-2 Depression Total Score: 0 documented as of this encounter Care Teams Start Date End Date Booky Relationship Specialty 07/03/20 Lulu Lloyd MD PCP - [address] [address] 01/24/16 Emily Caba MA Maternal and Medicine documented as of this encounter
--- OUTSIDE RECORDS SUMMARY | 2021-07-19 11:06 | XMS REPORT | Encounter Summary ---
Author Author [facility] Organization [facility] Address Unknown Phone Unavailable Care Team Providers Care Shot Hole Shooter Name Role Phone Emily Caba MA Unavailable Unavailable Lulu Lloyd MD PCP Encounter Details Care Team Description Date Type Department 05/28/2021 Travel Social History Date Tobacco Use Types [...] Recorded COVID-19 Exposure Response 05/28/2021 10:16 AM SUPERVISOR COMPONENT ASSEMBLER In the last month, have you been [...] encounter Care Teams Start Date End Date Shot Hole Shooter Relationship Specialty 07/03/20 Lulu Lloyd MD PCP - [address] [phone] 01/24/16 Emily Caba MA Maternal and Medicine documented as of this encounter
--- OUTSIDE RECORDS SUMMARY | 2021-07-19 11:06 | XMS REPORT | Encounter Summary ---
Author Author [facility] Organization [facility] Address Unknown Phone Unavailable Care Team Providers Care Wire Frame Dipper Name Role Phone Emily Caba MA Unavailable Unavailable Lulu Lloyd MD PCP Encounter Details Care Team Description Date Type Department 07/11/2021 Hospital Imaging: [facility], Encounter [facility] [address], [address] [place] [address] Social History Date Tobacco Use [...] Recorded COVID-19 Exposure Response 07/11/2021 10:00 PM CHEF CONCIERGE In the last month, have you been [...] (AQUAPHOR) topically to oint affected area daily. Wgqaywbhjwdih-Va-Xpwo-Min Take by 0 erals (MULTIPLE VITAMIN, mouth. [...] Name Priority Date/Time Associated Diag nosis CT CHEST/ABD/PEL EXTERNAL Routine 07/11/2021 IMAGING 7:35 PM CHEF CONCIERGE documented in this encounter Results * CT CHEST/ABD/PEL EXTERNAL IMAGING (07/11/2021 7:35 PM CHEF CONCIERGE) Modality Anatomical Region Laterality Computed Radiography Specimen Narrative Scheduling, Silent - 07/13/2021 4:57 AM CHEF CONCIERGE This order has been auto finalized and [...] encounter Care Teams Start Date End Date Wire Frame Dipper Relationship Specialty 07/03/20 Lulu Lloyd MD PCP - [address] [address] 01/24/16 Emily Caba MA Maternal and Medicine documented as of this encounter
--- OUTSIDE RECORDS SUMMARY | 2021-07-19 11:06 | XMS REPORT | Encounter Summary ---
Author Author [facility] Organization [facility] Address Unknown Phone Unavailable Care Team Providers Care Supervisor Product Inspection Name Role Phone Emily Caba MA Unavailable Unavailable Lulu Lloyd MD PCP Reason for Visit * Reason Onset Date Comments Results 06/06/2021 Encounter Details Care Team Description Date Type Department Brandie Pineda MD [address] [facility] [address] [place] [address] Results 06/06/2021 Telephone Obstetrics and Gynecology: Rhett Nayak [facility] [address] [place] [address] Social History Date Tobacco Use Types Packs/Day [...] Recorded COVID-19 Exposure Response 05/28/2021 10:16 AM SURVEILLANCE SENSOR OPERATOR In the last month, have you been [...] Date End Date Prescription Sig Dispensed Refills 06/06/2021 06/09/2021 fluconazole (DIFLUCAN) Take one 3 tablet 0 150 mg tablet tablet by mouth every 3 days for 3 doses. documented in this encounter Miscellaneous Notes * Telephone Encounter - Rosa Isela Campbell RN - 06/06/2021 3:43 PM SURVEILLANCE SENSOR OPERATOR Attempted to contact patient about results. Left message that prescription has b een called in and to call back with any questions EILLANCE SENSOR OPERATOR documented in this encounter Plan of Treatment Not on filedocumented as of this encounter Visit Diagnoses Not on filedocumented in this encounter Additional Health Concerns Noted Time Assessment 01/23/2021 3:31 PM CDT A fall risk assessment has been complet ed for the patient 12/10/2020 12:49 PM CDT PHQ-2 Depression Total Score: 0 documented as of this encounter Care Teams Start Date End Date Supervisor Product Inspection Relationship Specialty 07/03/20 Lulu Lloyd MD PCP - [address] [address] 01/24/16 Emily Caba MA Maternal and Medicine documented as of this encounter
--- NOTE | 2021-07-19 11:11 | ED EENT ---
History of Present Illness General Stated Complaint: RT EAR PAIN; SORE THROAT History of Present Illness Date Seen by Provider: Jul 19, 2021 Time Seen by Provider: 11:08 Initial Comments 60-year-old female presents with right ear pain. She reports that she has been having for a couple days. Feels like a pressure. Patient also reports that she is got a sore throat. However she reports that about a week ago she had gallbladder surgery in her throat is been sore since then. She denies any fever or chills. She denies any nausea vomiting or cough. Allergies and Home Medications Allergies Coded Allergies: No Known Drug Allergies (Unverified , 01/26/19) Patient Home Medication List Home Medication List Reviewed: Yes Ciprofloxacin HCl (Ciprofloxacin HCl) 500 Mg Tablet, 500 MG PO BID Prescribed by: SUZANNA RIVERO on 01/26/191417 Hydrocodone/Acetaminophen (Hydrocodone/Acetaminophen 5 MG/325 MG TAB) 1 Each Tablet, 1 TAB PO Q4-6HR Prescribed by: SUZANNA RIVERO on 01/26/19 141 Metronidazole (Flagyl) 500 Mg Tablet, 500 MG PO TID Prescribed by: SUZANNA RIVERO on 01/26/191417 Ondansetron (Ondansetron Odt) 8 Mg Tab.rapdis, 8 MG PO Q6H Prescribed by: NASIM GARRETT on 05/09/19107 Oxycodone HCl/Acetaminophen (Oxycodone-Acetaminophen 10-325) 1 Each Tablet, 1 EACH PO Q8H PRN for PAIN-MODERATE Prescribed by: NASIM GARRETT on 05/09/19107 Sulfamethoxazole/Trimethoprim (Bactrim Ds Tablet) 1 Each Tablet, 2 EACH PO BID Prescribed by: NASIM GARRETT on 05/09/19107 Review of Systems Review of Systems Constitutional: No chills, No fever Ears: See HPI, Pain Nose: no symptoms reported Throat: pain, painful swallowing Respiratory: No cough, No short of breath Cardiovascular: No chest pain, No palpitations Gastrointestinal: no symptoms reported; No nausea, No vomiting Musculoskeletal: no symptoms reported Skin: no symptoms reported Neurological: No Symptoms Reported Hematologic/Lymphatic: No Symptoms Reported Immunological/Allergic: no symptoms reported Past Vwurmos-Vxwvrq-Pmykeh Hx Seasonal Allergies Seasonal Allergies: No Past Medical History Surgeries: Yes Abdominal, Bladder Surgery, Section, 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, Oophorectomy, Orthopedic Respiratory: No Cardiac: Yes Hypertension Neurological: Yes Vertigo Reproductive Disorders: Yes Female Reproductive Disorders: Menstrual Problems DATA MODELING SPECIALIST 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: 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 Genitourinary: Yes (BLADDER SLING; RENAL CYST) UTI-Chronic Gastrointestinal: Yes (GASTRIC BYPASS) Musculoskeletal: Yes (C-SPINE FUSION; RIGHT CARPAL TUNNEL; CHRONIC NECK AND BACK PAIN/DDD) Degenerate Disk Disease, Chronic Back Pain Endocrine: Yes (MORBID OBESITY) HEENT: No Cancer: Yes (VULVAR CANCER DX 2019--S/P PARTIAL VULVECTOMY) Did You Recieve Any Treatments: Yes What Type of Treatment Did You: Surgical Intervention Psychosocial: No Integumentary: No Physical Exam Vital Signs Vital Signs - First Documented 07/19/21 11:08 Temp 35.1 Pulse 102 Resp 16 B/P (MAP) 159/91 (113) O2 Delivery Room Air Height, Weight, BMI Height: 5'5.00" Weight: 200lbs. oz. 90.396073zs; 33.00 BMI Method:Stated General Appearance: WD/WN, no apparent distress Eyes: bilateral eye normal inspection Ears: right ear erythema (Very mild); left ear TM normal Mouth/Throat: other (Pharyngeal erythema) Cardiovascular: normal peripheral pulses, regular rate, rhythm Respiratory: lungs clear, normal breath sounds Neurologic/Psychiatric: no motor/sensory deficits, alert, normal mood/affect Skin: normal color, warm/dry Progress/Results/Core Measures Results/Orders Lab Results Laboratory Tests Test 07/19/21 11:12 Range/Units Group A Streptococcus Screen NEGATIVE NEGATIVE My Orders Orders - MEJIA MORRIS DO Rapid Strep A Screen (07/19/21 11:11) Vital Signs/I&O 07/19/21 11:08 Temp 35.1 Pulse 102 Resp 16 B/P (MAP) 159/91 (113) O2 Delivery Room Air Progress Progress Note : Progress Note Patient with some mild erythema to her right TM that is very minimal left maybe little bit of serous fluid. Discussed with her that I suspect is likely from irritation of her eustachian tubes with her recent intubation for surgery. I will start her on some Ciprodex eardrops. I also recommend she use Flonase along with popping her ears 5-6 times daily to help clear her eustachian tubes. If her symptoms continue for more than 3 to 4 days she should follow-up with her primary care provider. Patient stable and discharged Departure Impression Primary Impression: Acute serous otitis media of right ear without rupture Additional Impression: Eustachian tube dysfunction Qualified Codes: H69.81 - Other specified disorders of eustachian tube, right ear Disposition: 01 HOME, SELF-CARE Condition: Stable Departure-Patient Inst. Referrals: GAVIOTA CATES MD (PCP/Family) Primary Care Physician Patient Instructions: DR. HURTADO-MIDDLE EAR, Eustachian Tube Problems (DC), Serous Otitis Media (DC) Add. Discharge Instructions: Flonase, Nasacort or other nasal steroid as directed on package daily Follow-up with your primary care provider in 3 to 4 days if your symptoms or not improving or continue to worsen Scripts Ciprofloxacin HCl/Dexameth (Ciprodex Otic Suspension) 7.5 Ml Soln 7.5 ML OT BID for 7 Days, #1 EA 4 drops in right ear twice daily x7 days Prov: MEJIA MORRIS DO 07/19/21 MEJIA MORRIS DO Jul 19, 2021 11:10
[2021-07-19] MEDS ORDERED: NF-CIPDEC OT (11:36)
[2021-07-19 11:39] VITALS: BP 159/91
== END 2021-07-19 11:40 | disposition home or self-care (01) ==
LOC: EDUNIT# 11:00 → ER FS 11:02
DX: H65.01 Acute serous otitis media, right ear (principal); H69.81 Other specified disorders of Eustachian tube, right ear; I10 Essential (primary) hypertension; E66.01 Morbid (severe) obesity due to excess calories; G89.29 Other chronic pain; M54.9 Dorsalgia, unspecified; Z68.33 Body mass index [BMI] 33.0-33.9, adult; Z79.891 Long term (current) use of opiate analgesic
CPT/HCPCS: 87430; 99285

== ENCOUNTER 2023-06-07 08:19 | Inpatient (IN) | payer BC, OTHER ==
[~2023-06-07] VITALS: Ht 167 cm; Wt 105.2 kg
[~2023-06-07 08:19] MED LIST changes: +NF-CIPDEC OT
[2023-06-07] MEDS ORDERED: FAMOTIDINE 20 MG TABLET PO STA (08:27)
[2023-06-07] MEDS ORDERED: NITROGLYCERIN 0.4 MG SL TABLETS BTL 25'S SL PRN ×2 (08:30→12:00)
[2023-06-07] MEDS ORDERED: ONDANSETRON INJECTION 4 MG/2 ML (SDV) IVP ONE (08:30)
[2023-06-07] MEDS ORDERED: NITROGLYCERIN 2% OINT 1 GM UNIT DOSE PACKET TOP ONE (08:30)
[2023-06-07] MEDS ORDERED: ANTACID SUSPENSION 30 ML UDC PO ONE (08:30)
[2023-06-07] MEDS ORDERED: LIDOCAINE 2% VISCOUS 15 ML UDC PO ONE (08:30)
[2023-06-07] MEDS ORDERED: ASPIRIN 81 MG CHEWABLE TABLET PO ONE (08:30)
--- NOTE | 2023-06-07 08:30 | ED Cardiac General ---
History of Present Illness General Chief Complaint: Chest Pain Stated Complaint: CHEST PAIN Source: patient Exam Limitations: no limitations History of Present Illness Date Seen by Provider: Jun 07, 2023 Time Seen by Provider: 08:22 Initial Comments 62-year-old female with past medical history of hypertension coming in due to chest pain. Its in the center of her chest going to both shoulders, started this morning, constant, pressure-like discomfort. Has never really had this discomfort before. Denies any shortness of breath, fever, weakness, numbness, abdominal pain, vomiting, diarrhea, rash, or any other concerns. Denies any prior history of DVT or PE, no lower extremity swelling or pain, no hemoptysis, no recent surgery, no hormone use. Did take her hydrochlorothiazide this morning, does not take any aspirin. Allergies and Home Medications Allergies Coded Allergies: No Known Drug Allergies (Unverified , 01/26/19) Patient Home Medication List Home Medication List Reviewed: Yes Amlodipine Besylate (Amlodipine Besylate) 10 Mg Tablet, 10 MG PO DAILY Prescribed by: ARNOLD GREGG on 06/07/23 0933 Ciprofloxacin HCl (Ciprofloxacin HCl) 500 Mg Tablet, 500 MG PO BID Prescribed by: SUZANNA RIVERO on 01/26/19 1418 Ciprofloxacin HCl/Dexameth (Ciprodex Otic Suspension) 7.5 Ml Soln, 7.5 ML OT BID Prescribed by: MEJIA MORRIS on 07/19/21 1136 Hydrocodone/Acetaminophen (Hydrocodone/Acetaminophen 5 MG/325 MG TAB) 1 Each Tablet, 1 TAB PO Q4-6HR Prescribed by: SUZANNA RIVERO on 01/26/19 141 Metronidazole (Flagyl) 500 Mg Tablet, 500 MG PO TID Prescribed by: SUZANNA RIVERO on 01/26/19 141 Ondansetron (Ondansetron Odt) 8 Mg Tab.rapdis, 8 MG PO Q6H Prescribed by: NASIM GARRETT on 05/09/19107 Oxycodone HCl/Acetaminophen (Oxycodone-Acetaminophen 10-325) 1 Each Tablet, 1 EACH PO Q8H PRN for PAIN-MODERATE Prescribed by: NASIM GARRETT on 05/09/19107 Sulfamethoxazole/Trimethoprim (Bactrim Ds Tablet) 1 Each Tablet, 2 EACH PO BID Prescribed by: NASIM GARRETT on 05/09/198 Review of Systems Review of Systems Constitutional: No fever EENTM: No Symptoms Reported Respiratory: No Symptoms Reported Cardiovascular: See HPI Gastrointestinal: No Symptoms Reported Genitourinary: No Symptoms Reported Musculoskeletal: no symptoms reported Skin: no symptoms reported Psychiatric/Neurological: No Symptoms Reported Endocrine: No Symptoms Reported Past Illvgfx-Xynyhz-Pqdcmv Hx Patient Social History Tobacco Use?: No Use of E-Cig and/or Vaping dev: No Substance use?: No Alcohol Use?: No Seasonal Allergies Seasonal Allergies: No Past Medical History Surgeries: Yes Abdominal, Bladder Surgery, Section, 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, Oophorectomy, Orthopedic Respiratory: No Cardiac: Yes Hypertension Neurological: Yes Vertigo Reproductive Disorders: Yes Female Reproductive Disorders: 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 Genitourinary: Yes (BLADDER SLING; RENAL CYST) UTI-Chronic Gastrointestinal: Yes (GASTRIC BYPASS) Musculoskeletal: Yes (C-SPINE FUSION; RIGHT CARPAL TUNNEL; CHRONIC NECK AND BACK PAIN/DDD) Degenerate Disk Disease, Chronic Back Pain Endocrine: Yes (MORBID OBESITY) HEENT: No Cancer: Yes (VULVAR CANCER DX 2019--S/P PARTIAL VULVECTOMY) Did You Recieve Any Treatments: Yes What Type of Treatment Did You: Surgical Intervention Psychosocial: No Integumentary: No Physical Exam Vital Signs Vital Signs - First Documented 06/07/23 06/07/23 08:27 08:44 Temp 36.3 Pulse 88 Resp 18 B/P (MAP) 229/110 (149) Pulse Ox 98 O2 Delivery Room Air Capillary Refill : Height, Weight, BMI Height: 5'5.00" Weight: 200lbs. oz. 90.441980qg; 34.00 BMI Method:Stated General Appearance: No Apparent Distress, WD/WN HEENT: PERRL/EOMI, Normal ENT Inspection, Pharynx Normal Neck: Full Range of Motion, Normal Inspection, Non Tender, Supple Respiratory: Chest Non Tender, Lungs Clear, Normal Breath Sounds, No Accessory Muscle Use, No Respiratory Distress Cardiovascular: Regular Rate, Rhythm, No Edema, Normal Peripheral Pulses Gastrointestinal: Normal Bowel Sounds, Non Tender, Soft; No Distended, No Guarding Extremity: Normal Capillary Refill, Normal Inspection, Normal Range of Motion, Non Tender, No Calf Tenderness, No Pedal Edema Neurologic/Psychiatric: Alert, No Motor/Sensory Deficits, Normal Mood/Affect Skin: Normal Color, Warm/Dry Progress/Results/Core Measures Results/Orders Lab Results Laboratory Tests Test 06/07/23 08:31 06/07/23 10:00 Range/Units White Blood Count 8.2 4.3-11.0 10^3/uL Red Blood Count 5.85 H 3.80-5.11 10^6/uL Hemoglobin 17.1 H 11.5-16.0 g/dL Hematocrit 52 35-52 % Mean Corpuscular Volume 89 80-99 fL Mean Corpuscular Hemoglobin 29 25-34 pg Mean Corpuscular Hemoglobin Concent 33 32-36 g/dL Red Cell Distribution Width 13.1 10.0-14.5 % Platelet Count 382 130-400 10^3/uL Mean Platelet Volume 9.4 9.0-12.2 fL Immature Granulocyte % (Auto) 0 % Neutrophils (%) (Auto) 52 42-75 % Lymphocytes (%) (Auto) 36 12-44 % Monocytes (%) (Auto) 8 0-12 % Eosinophils (%) (Auto) 3 0-10 % Basophils (%) (Auto) 1 0-10 % Neutrophils # (Auto) 4.3 1.8-7.8 10^3/uL Lymphocytes # (Auto) 2.9 1.0-4.0 10^3/uL Monocytes # (Auto) 0.7 0.0-1.0 10^3/uL Eosinophils # (Auto) 0.2 0.0-0.3 10^3/uL Basophils # (Auto) 0.1 0.0-0.1 10^3/uL Immature Granulocyte # (Auto) 0.0 0.0-0.1 10^3/uL Prothrombin Time 12.6 12.2-14.7 SEC INR Comment 0.9 0.8-1.4 Activated Partial Thromboplast Time 28 24-35 SEC Sodium Level 137 135-145 MMOL/L Potassium Level 4.0 3.6-5.0 MMOL/L Chloride Level 100 98-107 MMOL/L Carbon Dioxide Level 26 21-32 MMOL/L Anion Gap 11 5-14 MMOL/L Blood Urea Nitrogen 14 7-18 MG/DL Creatinine 0.77 0.60-1.30 MG/DL Estimat Glomerular Filtration Rate 87 BUN/Creatinine Ratio 18 Glucose Level 107 H 70-105 MG/DL Calcium Level 9.6 8.5-10.1 MG/DL Corrected Calcium 9.3 8.5-10.1 MG/DL Magnesium Level 2.2 1.6-2.4 MG/DL Total Bilirubin 1.1 H 0.1-1.0 MG/DL Aspartate Amino Transf (AST/SGOT) 29 5-34 U/L Alanine Aminotransferase (ALT/SGPT) 24 0-55 U/L Alkaline Phosphatase 117 40-136 U/L Troponin I < 0.30 0.49 *H <0.30 NG/ML Pro-B-Type Natriuretic Peptide 39.2 <125.0 PG/ML Total Protein 8.1 6.4-8.2 GM/DL Albumin 4.4 3.2-4.5 GM/DL Lipase 38 8-78 U/L My Orders Orders - ARNOLD GREGG MD Cbc And Automated Diff (06/07/23:) Magnesium (06/07/23 08:) Chest 1 View Ap/Pa Only (06/07/23:) Ekg Tracing (06/07/23:) Comprehensive Metabolic Panel (06/07/23:) Protime With Inr (06/07/23:) Partial Thromboplastin Time (06/07/23:) O2 (06/07/23:) Monitor-Rhythm Ecg Trace Only (06/07/23:) Aspirin Chewable Tablet (Aspirin Chewabl (06/07/23 08:30) Ed Iv/Invasive Line Start (06/07/23:) Lipase (06/07/23:) Troponin I Fs (06/07/23:) Probnp Fs (06/07/23:) Nitroglycerin Ointment (Nitroglycerin (06/07/23 08:30) Nitroglycerin 0.4 Mg Btl 25's (Nitroglyc (06/07/23 08:) Lidocaine 2% Viscous 15 Ml (Xylocaine Vi (06/07/23 08:30) Famotidine Tablet (Famotidine Tablet) (06/07/23 08:27) Antacid Suspension (Antacid Suspension (06/07/23 08:30) Ondansetron Injection (Ondansetron Inj (06/07/23 08:30) Troponin I Fs (06/07/23 10:00) Amlodipine Tablet (Amlodipine Tablet) (06/07/23 09:31) Enoxaparin Injection (Enoxaparin Injecti (06/07/23 10:45) Metoprolol Succinate (Xl) Tab (Metoprolo (06/07/23 10:45) Medications Given in ED Current Medications Medications Dose Ordered Sig/Chris Route Start Time Stop Time Status Last Admin Dose Admin Al Hydrox/Mg Hydrox/Simethicone 30 ml ONCE ONCE PO 06/07/23 08:30 06/07/23 08:31 DC 06/07/23 08:39 30 ML Aspirin 324 mg ONCE ONCE PO 06/07/23 08:30 06/07/23 08:31 DC 06/07/23 08:35 324 MG Lidocaine HCl 15 ml ONCE ONCE PO 06/07/23 08:30 06/07/23 08:31 DC 06/07/23 08:39 15 ML Nitroglycerin 1 TAB Q 5 MIN X 3 NEEDED PRN SL 06/07/23 08:30 06/07/23 08:36 0.4 MG Nitroglycerin 1 inch ONCE ONCE TOP 06/07/23 08:30 06/07/23 08:31 DC 06/07/23 08:37 1 INCH Ondansetron HCl 4 mg ONCE ONCE IVP 06/07/23 08:30 06/07/23 08:31 DC 06/07/23 08:35 4 MG Vital Signs/I&O 06/07/23 06/07/23 08:27 08:44 Temp 36.3 Pulse 88 Resp 18 B/P (MAP) 229/110 (149) Pulse Ox 98 97 O2 Delivery Room Air Room Air Progress Progress Note : Progress Note 62-year-old female with above history coming in due to chest pain. ABCs were intact and vitals were stable on presentation. Physical exam reassuring with no acute abnormalities. EKG ordered and interpreted by me showing no acute ischemic changes, she does have LVH. Chest x-ray ordered and interpreted by me showing no pneumothorax, normal cardiac silhouette, no obvious pneumonia. An IV was placed and basic labs were obtained and were significant for the second troponin being positive, normal creatinine, total bilirubin of 1.1 which is just above normal, normal lipase. She was given aspirin on arrival, GI cocktail, and Nitropaste. Blood pressure did trend down, and her pain improved as well. After the second troponin came back positive, the patient was given 1 mg/kg of Lovenox. She was also given oral metoprolol. I contacted Dr. Reed, the electronics utility worker on-call. He recommends admission to the cardiac stepdown unit. I then contacted the [facility] resident on-call, and Dr. Nicholas will be admitting the patient under inpatient status. Of note, on the system it does say Dr. Cates is the patient's doctor, the patient says she has not been to her in many years, and recently uses [facility]. Initial ECG Impression Date: Jun 07, 2023 Initial ECG Impression Time: 08:24 Initial ECG Rate: 87 Initial ECG Rhythm: Normal Sinus Comment Narrow QRS, normal axis, no STEMI, LVH Diagnostic Imaging Diagonstic Imaging: Xray (chest) Comments NAME: MOUNIKA CUENCA [facility] REC#: [id number] PT STATUS: REG ER : 1960 PHYSICIAN: ARNOLD GREGG MD ADMIT DATE: 06/07/23/ER FS Draft Date of Exam:06/07/23 CHEST 1 VIEW AP/PA ONLY INDICATION: Chest pain Single AP view of chest is obtained. COMPARISON: No previous study is available for comparison at this time. FINDINGS: Heart size and pulmonary vasculature are within normal limits, and the lungs are clear, bilaterally. There has been prior lower cervical fusion. Prominent inferior acromial spurring is noted. IMPRESSION: Unremarkable chest. Dictated on workstation # [id number] Dict: 06/07/23 09 Trans: 06/07/23 0904 [facility] [id number] Interpreted by: JUDY CARROLL MD Electronically signed by: Departure Impression Primary Impression: NSTEMI (non-ST elevated myocardial infarction) Additional Impressions: Chest pain Qualified Codes: R07.82 - Intercostal pain Uncontrolled hypertension Disposition: 30 STILL A PATIENT Condition: Stable Admissions Decision to Admit Reason: Admit from ER (General) Decision to Admit/Date: Jun 07, 2023 Time/Decision to Admit Time: 10:30 Transfer Method of Transfer: EMS Departure-Patient Inst. Referrals: GAVIOTA CATES MD (PCP) Primary Care Physician DAMIAN PALACIO MD FACP FACC CCDS Patient Instructions: Chest Pain, Adult ED, High Blood Pressure ED Work/School Note: Work Release Form Date Seen in the Emergency Department: Jun 07, 2023 Return to Work: Jun 08, 2023 Restrictions: No Restrictions ARNOLD GREGG MD Jun 07, 2023 08:30
[2023-06-07 08:36] LABS: BASOPHILS # (AUTO) 0.1 10^3/uL (0.0-0.1); BASOPHILS % (AUTO) 1 % (0-10); EOSINOPHILS # (AUTO) 0.2 10^3/uL (0.0-0.3); EOSINOPHILS % (AUTO) 3 % (0-10); HEMATOCRIT 52 % (35-52); HEMOGLOBIN 17.1 g/dL (11.5-16.0); LYMPHOCYTES # (AUTO) 2.9 10^3/uL (1.0-4.0); LYMPHOCYTES % (AUTO) 36 % (12-44); MEAN CORPUSCULAR HEMOGLOBIN 29 pg (25-34); MEAN CORPUSCULAR HGB CONC 33 g/dL (32-36); MEAN CORPUSCULAR VOLUME 89 fL (80-99); MEAN PLATELET VOLUME 9.4 fL (9.0-12.2); MONOCYTES # (AUTO) 0.7 10^3/uL (0.0-1.0); MONOCYTES % (AUTO) 8 % (0-12); NEUTROPHILS # (AUTO) 4.3 10^3/uL (1.8-7.8); NEUTROPHILS % (AUTO) 52 % (42-75); PLATELET COUNT 382 10^3/uL (130-400); WHITE BLOOD COUNT 8.2 10^3/uL (4.3-11.0)
[2023-06-07 08:49] LABS: CHLORIDE 100 MMOL/L (98-107); SODIUM 137 MMOL/L (135-145)
[2023-06-07 08:54] LABS: INR 0.9 (0.8-1.4); PROTHROMBIN TIME PATIENT 12.6 SEC (12.2-14.7)
--- NOTE | 2023-06-07 09:04 | Diagnostic Imaging Report ---
INDICATION: Chest pain Single AP view of chest is obtained. COMPARISON: No previous study is available for comparison at this time. FINDINGS: Heart size and pulmonary vasculature are within normal limits, and the lungs are clear, bilaterally. There has been prior lower cervical fusion. Prominent inferior acromial spurring is noted. IMPRESSION: Unremarkable chest. Dictated by: Dictated on workstation # [id number]
[2023-06-07 09:06] LABS: ALANINE AMINOTRANSFERASE 24 U/L (0-55); ALBUMIN 4.4 GM/DL (3.2-4.5); ALKALINE PHOSPHATASE 117 U/L (40-136); BILIRUBIN,TOTAL 1.1 MG/DL (0.1-1.0); BUN/CREATININE RATIO 18; CALCIUM 9.6 MG/DL (8.5-10.1); CARBON DIOXIDE 26 MMOL/L (21-32); CREATININE SERUM 0.77 MG/DL (0.60-1.30); GFR ESTIMATED 87; GLUCOSE 107 MG/DL (70-105); LIPASE 38 U/L (8-78); MAGNESIUM 2.2 MG/DL (1.6-2.4); TOTAL PROTEIN 8.1 GM/DL (6.4-8.2)
[2023-06-07] MEDS ORDERED: LISI10TA25 PO (09:28)
[2023-06-07] MEDS ORDERED: amLODIPine 5 MG TABLET PO STA (09:31)
[2023-06-07] MEDS ORDERED: AMLO-251 PO (09:33)
[2023-06-07] MEDS ORDERED: ENOXAPARIN 100 MG/1 ML SYRINGE SC ONE (10:45)
--- NOTE | 2023-06-07 11:59 | History & Physical ---
NADIA TURPIN MD, RESIDENT 06/07/23 1159: HPI History of Present Illness: CC: Chest pain Patient is a 62-year-old female with past medical history of hypertension, fibromyalgia presenting with chest pain. She states she woke up this morning with a headache but did not think anything of it and continued on with her morning. Then around 7 AM, she started having chest pain starting from her left shoulder into her right shoulder across the chest, felt like a board was pressing on her. She also stated that she felt short of breath. Pain was rated 9 out of 10. She initially did not think anything of it as she has a history of fibromyalgia and thought it was related to that however pain was not improving and thus she presented to the ED for further evaluation. In the ED, patient was noted to have abnormal EKG, with negative initial troponin however repeat troponin was elevated. Patient was also noted to have blood pressure in the 220s with reduction after nitroglycerin. Her chest pain also did improve to 3 out of 10 however given the elevated troponin, patient will be admitted for further management. Source: patient Date seen by provider: Jun 07, 2023 Time Seen by Provider: 12:50 Attending Physician Lulu Lloyd MD PCP Admitting Physician: Stefany Torres MD Attending Physician: Stefany Torres MD Consult Date of Admission Jun 07, 2023 at 11:50 Home Medications Home Medications Reviewed patient Home Medication Reconciliation performed by pharmacy medication reconciliations radiology technician and/or nursing. Patients Allergies have been reviewed. Allergies Coded Allergies: No Known Drug Allergies (Unverified , 01/26/19) [id number]-Epcbom Hx Patient Social History 2nd Hand Smoke Exposure: No Recent Hopitalizations: Yes (partial vulvectomy 04/25/19) Alcohol Use?: No Review of Systems (CHC) Constitutional: No chills, No fever EENTM: No nose congestion Respiratory: No cough, No dyspnea on exertion; short of breath Cardiovascular: chest pain; No edema, No palpitations Gastrointestinal: No abdominal pain, No constipation, No diarrhea; nausea; No vomiting Reviewed Test Results Reviewed Test Results Lab Laboratory Tests 06/07/23 08:31: White Blood Count 8.2, Red Blood Count 5.85H, Hemoglobin 17.1H, Hematocrit 52, Mean Corpuscular Volume 89, Mean Corpuscular Hemoglobin 29, Mean Corpuscular Hemoglobin Concent 33, Red Cell Distribution Width 13.1, Platelet Count 382, Mean Platelet Volume 9.4, Immature Granulocyte % (Auto) 0, Neutrophils (%) (Auto) 52, Lymphocytes (%) (Auto) 36, Monocytes (%) (Auto) 8, Eosinophils (%) (Auto) 3, Basophils (%) (Auto) 1, Neutrophils # (Auto) 4.3, Lymphocytes # (Auto) 2.9, Monocytes # (Auto) 0.7, Eosinophils # (Auto) 0.2, Basophils # (Auto) 0.1, Immature Granulocyte # (Auto) 0.0, Prothrombin Time 12.6, INR Comment 0.9, Activated Partial Thromboplast Time 28, Sodium Level 137, Potassium Level 4.0, Chloride Level 100, Carbon Dioxide Level 26, Anion Gap 11, Blood Urea Nitrogen 14, Creatinine 0.77, Estimat Glomerular Filtration Rate 87, BUN/Creatinine Ratio 18, Glucose Level 107H, Calcium Level 9.6, Corrected Calcium 9.3, Magnesium Level 2.2, Total Bilirubin 1.1H, Aspartate Amino Transf (AST/SGOT) 29, Alanine Aminotransferase (ALT/SGPT) 24, Alkaline Phosphatase 117, Troponin I < 0.30, Pro-B-Type Natriuretic Peptide 39.2, Total Protein 8.1, Albumin 4.4, Lipase 38 06/07/23 10:00: Troponin I 0.49*H 06/07/23 12:15: Magnesium Level 2.0, Triglycerides Level [Pending], Cholesterol Level [Pending], LDL Cholesterol Direct [Pending], VLDL Cholesterol [Pending], HDL Cholesterol [Pending], Thyroid Stimulating Hormone (TSH) [Pending] Radiology Chest x-ray (06/07/2023): IMPRESSION: Unremarkable chest. Physical Exam-([facility]) Physical Exam Vital Signs VS - Last 72 Hours, by Label 06/07/23 06/07/23 06/07/23 06/07/23 08:27 08:44 10:50 11:45 Temp 36.3 36.6 Pulse 88 60 62 Resp 18 20 13 B/P (MAP) 229/110 (149) 165/95 160/80 (106) Pulse Ox 98 97 95 98 O2 Delivery Room Air Room Air Room Air Room Air 06/07/23 06/07/23 06/07/23 12:00 12:15 12:15 Pulse 60 62 62 Resp 13 17 B/P (MAP) 170/99 (122) 181/107 (131) Pulse Ox 98 97 O2 Delivery Room Air Room Air Capillary Refill : General Appearance: WD/WN, no apparent distress HEENT: PERRL/EOMI, normal ENT inspection Neck: non-tender, full range of motion Respiratory: chest non-tender, lungs clear, normal breath sounds, no respiratory distress, no accessory muscle use Cardiovascular: regular rate, rhythm, no edema, no murmur Gastrointestinal: normal bowel sounds, non tender, soft Neurologic/Psychiatric: alert, oriented x 3 Skin: normal color, warm/dry Assessment/Plan Assessment/Plan Admission Dx Chest pain, NSTEMI, hypertensive urgency Admission Status: Observation (1) NSTEMI (non-ST elevated myocardial infarction) Status: Acute Assessment & Plan: Patient noted to have elevated troponin on recheck. EKG otherwise normal. Given that patient was symptomatic, will monitor. Plan: Consulted cardiology, appreciate recommendations Started on metoprolol 25 daily Continue daily aspirin We will start patient on nitroglycerin drip as she is continuing to have chest pain Monitor on telemetry Therapeutic Lovenox Started statin Echo ordered (2) Chest pain Status: Acute Assessment & Plan: See above Qualifiers: Qualified Codes: R07.82 - Intercostal pain (3) Hypertensive emergency Status: Acute Assessment & Plan: Likely also has hypertensive emergency given that patient did having a headache earlier this morning and is having chest pain. Status post dose of amlodipine and metoprolol in the ED. Noted that nitro was the most effective for patient's blood pressure. Only on hydrochlorothiazide 25 mg daily in the outpatient. Plan: Will monitor blood pressures on nitro drip Consider starting losartan or amlodipine when transitioning to orals. Patient has tried lisinopril in the past which was discontinued due to cough (4) Fibromyalgia Status: Chronic Assessment & Plan: We will have pain medications on board as needed STEFANY TORRES MD 06/07/23 2521: Home Medications Allergies Coded Allergies: No Known Drug Allergies (Unverified , 01/26/19) Supervisory-Addendum Brief Supervisory Addendum I personally performed the reyna portions of the visit, discussed case with resident and concur with resident documentation of history, physical exam, assessment and treatment plan unless otherwise noted. Patient discussed with Cardiology. Will transfer patient to ICU for nitro drip as this was the most affective for blood pressure control Plan for cath in AM Will get A1c NADIA TURPIN MD, RESIDENT Jun 07, 2023 11:59 STEFANY TORRES MD Jun 07, 2023 13:51
[2023-06-07] MEDS ORDERED: ONDANSETRON INJECTION 4 MG/2 ML (SDV) IVP PRN (12:00)
[2023-06-07] MEDS ORDERED: hydrALAZINE INJECTION 20 MG/ML VIAL IV PRN (12:00)
[2023-06-07 12:59] LABS: CHOLESTEROL 219 MG/DL (< 200); HDL CHOLESTEROL 64 MG/DL (40-60); TRIGLYCERIDES 87 MG/DL (<150); VLDL CHOLESTEROL 17 MG/DL (5-40)
--- NOTE | 2023-06-07 12:59 | History & Physicial-Cardiolgy ---
HPI-Cardiology Cardiology Consultation: Date of Consultation 06/07/23 Date of Admission 06/07/2023 Attending Physician Lulu Lloyd MD Admitting Physician Admitting Physician: Alethea Nicholas MD Attending Physician: Alethea Nicholas MD Consulting Physician DINORA MATTA MD HPI: Time Seen by a Provider: 12:53 Chief Complaint: Chest pain radiating from the left shoulder to the right across the chest, started suddenly today, associated with general weakness and shortness of breath Patient is 63-year-old white female who presented with above complaints, that started today. Patient came to ER where she was given nitroglycerin and pain significantly decreased but not completely went away. Patient also had increased blood pressure. Patient does have a history of hypertension, used to take lisinopril which caused cough, was switched to HCTZ reach please help her to decrease the blood pressure for some time but lately it has not been helping. Patient has high blood pressure for the last several weeks. She admits to have increased cholesterol but she is not taking any medication for the. Denies smoking. Review of Systems-Cardiology Review of Systems Constitutional: tiredness Eyes: no symptoms reported Ears/Nose/Throat: no symptoms reported Respiratory: shortness of breath Cardiovascular: chest pain Gastrointestinal: no symptoms reported Genitourinary: no symptoms reported : No Musculoskeletal: muscle pain Skin: As described under HPI Psychiatric/Neurological: no symptoms reported Hematologic: no symptoms reported JLT-Jmocnr-Spyoco Hx Patient Social History Smoking Status: Former Smoker 2nd Hand Smoke Exposure: No Alcohol Use?: No Past Medical History PMH As described under Assessment. Allergies and Home Medications Allergies Coded Allergies: No Known Drug Allergies (Unverified , 01/26/19) Patient Home Medication List Home Medication List Reviewed: Yes Ciprofloxacin HCl (Ciprofloxacin HCl) 500 Mg Tablet, 500 MG PO BID Prescribed by: SUZANNA RIVERO on 01/26/19 1418 Ciprofloxacin HCl/Dexameth (Ciprodex Otic Suspension) 7.5 Ml Soln, 7.5 ML OT BID Prescribed by: MEJIA MORRIS on 07/19/21 1136 Hydrocodone/Acetaminophen (Hydrocodone/Acetaminophen 5 MG/325 MG TAB) 1 Each Tablet, 1 TAB PO Q4-6HR Prescribed by: SUZANNA RIVERO on 01/26/19 1418 Metronidazole (Flagyl) 500 Mg Tablet, 500 MG PO TID Prescribed by: SUZANNA RIVERO on 01/26/19 1418 Ondansetron (Ondansetron Odt) 8 Mg Tab.rapdis, 8 MG PO Q6H Prescribed by: NASIM GARRETT on 05/09/19107 Oxycodone HCl/Acetaminophen (Oxycodone-Acetaminophen 10-325) 1 Each Tablet, 1 EACH PO Q8H PRN for PAIN-MODERATE Prescribed by: NASIM GARRETT on 05/09/19107 Sulfamethoxazole/Trimethoprim (Bactrim Ds Tablet) 1 Each Tablet, 2 EACH PO BID Prescribed by: NASIM GARRETT on 05/09/19107 Physical Exam-Cardiology Physical Exam Vital Signs/I&O 06/07/23 06/07/23 06/07/23 06/07/23 08:27 08:44 10:50 11:45 Temp 36.3 36.6 Pulse 88 60 62 Resp 18 20 13 B/P (MAP) 229/110 (149) 165/95 160/80 (106) Pulse Ox 98 97 95 98 O2 Delivery Room Air Room Air Room Air Room Air 06/07/23 06/07/23 06/07/23 12:00 12:15 12:15 Pulse 60 62 62 Resp 13 17 B/P (MAP) 170/99 (122) 181/107 (131) Pulse Ox 98 97 O2 Delivery Room Air Room Air Capillary Refill : Constitutional: appears stated age, AAO x 3 HEENT: PERRL Neck: non-tender, full range of motion, supple Respiratory: chest expansion is symmetric, lungs clear to auscultation Cardiovascular: S1 and S2 Gastrointestinal: soft, round Rectal: deferred Extremities: normal range of motion, non-tender, no lower extremity edema bilateral Neurologic/Psychiatric: no motor/sensory deficits, alert, normal mood/affect, oriented x 3 Skin: normal color, warm/dry Lymphatic: no adenopathy Data Review Labs Laboratory Tests 06/07/23 08:31: White Blood Count 8.2, Red Blood Count 5.85H, Hemoglobin 17.1H, Hematocrit 52, Mean Corpuscular Volume 89, Mean Corpuscular Hemoglobin 29, Mean Corpuscular Hemoglobin Concent 33, Red Cell Distribution Width 13.1, Platelet Count 382, Mean Platelet Volume 9.4, Immature Granulocyte % (Auto) 0, Neutrophils (%) (Auto) 52, Lymphocytes (%) (Auto) 36, Monocytes (%) (Auto) 8, Eosinophils (%) (Auto) 3, Basophils (%) (Auto) 1, Neutrophils # (Auto) 4.3, Lymphocytes # (Auto) 2.9, Monocytes # (Auto) 0.7, Eosinophils # (Auto) 0.2, Basophils # (Auto) 0.1, Immature Granulocyte # (Auto) 0.0, Prothrombin Time 12.6, INR Comment 0.9, Activated Partial Thromboplast Time 28, Sodium Level 137, Potassium Level 4.0, Chloride Level 100, Carbon Dioxide Level 26, Anion Gap 11, Blood Urea Nitrogen 14, Creatinine 0.77, Estimat Glomerular Filtration Rate 87, BUN/Creatinine Ratio 18, Glucose Level 107H, Calcium Level 9.6, Corrected Calcium 9.3, Magnesium Level 2.2, Total Bilirubin 1.1H, Aspartate Amino Transf (AST/SGOT) 29, Alanine Aminotransferase (ALT/SGPT) 24, Alkaline Phosphatase 117, Troponin I < 0.30, Pro-B-Type Natriuretic Peptide 39.2, Total Protein 8.1, Albumin 4.4, Lipase 38 06/07/23 10:00: Troponin I 0.49*H 06/07/23 12:15: Magnesium Level 2.0 ECG Impression ECG Initial ECG Impression Date: Jun 07, 2023 Initial ECG Impression Time: 10:00 Comment Normal sinus rhythm, LVH, nonspecific ST-T changes in lateral leads EKG : EKG Time: 10:00 A/P-Cardiology Assessment/Admission Diagnosis Chest pain. Acute non-STEMI. Hypertension Admission Status: Inpatient Order (span 2 midnights) Reason for Inpatient Admission: Non-STEMI Plan Will start patient on Lovenox therapeutic dose, aspirin, statin, metoprolol. Since patient has still high blood pressure and some persistent chest pain will initiate nitroglycerin drip. We will plan for coronary angiography. Clinical Quality Measures Admission Status Admission Status: Inpatient Order (span 2 midnights) Reason for Inpatient Admission: Non-STEMI DINORA MATTA MD Jun 07, 2023 12:59
[2023-06-07] MEDS ORDERED: ACETAMINOPHEN 500 MG TABLET PO PRN (13:00)
[2023-06-07] MEDS ORDERED: NALOXONE 0.4 MG/ML 1 ML VIAL IV PRN (13:00)
[2023-06-07] MEDS ORDERED: oxyCODONE IMMEDIATE RELEASE 5 MG TABLET PO PRN (13:00)
[2023-06-07] MEDS ORDERED: IBUPROFEN 600 MG TABLET PO PRN (13:00)
[2023-06-07] MEDS ORDERED: NS IV 1000 ML 1,000 ML IV ONE (13:15)
[2023-06-07 13:54] VITALS: BP 171/93
[2023-06-07] MEDS: NITRO DRIP 25000 MCG/D5W 250 ML IV SCH (13:54)
[2023-06-07] MEDS: ACETAMINOPHEN 500 MG TABLET PO PRN (13:56)
--- NOTE | 2023-06-07 14:58 | Tele-ICU Consult ---
History of Present Illness History of Present Illness Date Seen by Provider: Jun 07, 2023 Time Seen by Provider: 14:50 Date of Admission eICU Critical Care Consult 62 yo F presents to ED with cc of chest pain. Hx of HTN, lost insurance a while ago and not taking meds Pain is mid sternal, pressure like, no SOB, not on ASA In ED BP was 229/110. WBC 8.2, Hb 17.1, renal and liver function ok, glu 107, troponin normal and then 0.49, BNP 39 EKG shows LVHm non specific ST changes Started on ASA, NTG paste Amlodipine PMH s/p bladder sling, s/p gastric bypass, weight 96 kg, s/p C spine fusion, Hx of vulvular cancer Allergies and Home Medications Allergies Coded Allergies: No Known Drug Allergies (Unverified , 01/26/19) Home Medications Ciprofloxacin HCl 500 Mg Tablet, 500 MG PO BID Prescribed by: SUZANNA RIVERO on 01/26/19 1418 Ciprofloxacin HCl/Dexameth 7.5 Ml Soln, 7.5 ML OT BID 4 drops in right ear twice daily x7 days Prescribed by: MEJIA MORRIS on 07/19/21 1136 Hydrocodone/Acetaminophen 1 Each Tablet, 1 TAB PO Q4-6HR Prescribed by: SUZANNA RIVERO on 01/26/19 1418 Metronidazole 500 Mg Tablet, 500 MG PO TID Prescribed by: SUZANNA RIVERO on 01/26/19 141 Ondansetron 8 Mg Tab.rapdis, 8 MG PO Q6H Prescribed by: NASIM GARRETT on 05/09/19 010 Oxycodone HCl/Acetaminophen 1 Each Tablet, 1 EACH PO Q8H PRN for PAIN-MODERATE Prescribed by: NASIM GARRETT on 05/09/19107 Sulfamethoxazole/Trimethoprim 1 Each Tablet, 2 EACH PO BID Prescribed by: NASIM GARRETT on 05/09/19107 Past Medical/Social/Family Hx Patient Social History Tobacco Use?: No Smoking Status: Former Smoker Smokeless Tobacco Frequency: Never a User Use of E-Cig and/or Vaping dev: No Substance use?: Yes Substance type: Marijuana occasional low dose gummy for pain Substance frequency: Couple times a week Alcohol Use?: No Pt stated abuse/neglect: No Immunizations Up To Date Influenza Vaccine Up-to-Date: No; Not Current Current Status status: No Advance Directives: No Primary Language: [place] Leonean Preferred Spoken Language: [place]an Is interpretation needed?: No Review of Systems Constitutional: see HPI EENTM: see HPI Respiratory: see HPI Cardiovascular: see HPI Gastrointestinal: see HPI Genitourinary: see HPI Musculoskeletal: see HPI Skin: see HPI Psychiatric/Neurological: See HPI Focused Exam Height, Weight, BMI Height: 5'5.00" Weight: 200lbs. oz. [id number]; 34.42 BMI Method:Stated Exam Exam Patient acknowledged, consented, and participated in this virtual visit which was conducted using real time audio/video Vital Signs Date Time Temp Pulse Resp B/P (MAP) Pulse Ox O2 Delivery O2 Flow Rate FiO2 06/07/23 14:00 56 14 150/84 (106) 95 Room Air 06/07/23 13:54 59 171/93 06/07/23 13:00 59 11 117/104 (108) 96 Room Air 06/07/23 12:45 59 22 157/87 (110) 97 Room Air 06/07/23 12:30 60 8 169/86 (113) 97 Room Air 06/07/23 12:15 62 17 181/107 (131) 97 Room Air 06/07/23 12:15 62 06/07/23 12:00 60 13 170/99 (122) 98 Room Air 06/07/23 11:45 62 13 160/80 (106) 98 Room Air 06/07/23 10:50 36.6 60 20 165/95 95 Room Air 06/07/23 08:44 36.3 88 18 229/110 (149) 97 Room Air 06/07/23 08:27 98 Room Air Height & Weight Height: 5'5.00" Weight: 200lbs. oz. 90.100687kq; 34.42 BMI Method:Stated General Appearance: No Apparent Distress, WD/WN HEENT: PERRL/EOMI, Normal ENT Inspection, Pharynx Normal Neck: Full Range of Motion, Normal Inspection, Non Tender, Supple Respiratory: Chest Non Tender, Lungs Clear, Normal Breath Sounds, No Accessory Muscle Use, No Respiratory Distress Cardiovascular: Regular Rate, Rhythm, No Edema, Normal Peripheral Pulses Gastrointestinal: normal bowel sounds, non tender, soft Extremity: Normal Capillary Refill, Normal Inspection, Normal Range of Motion, Non Tender, No Calf Tenderness, No Pedal Edema Neurologic/Psychiatric: Alert, No Motor/Sensory Deficits, Normal Mood/Affect Skin: Normal Color, Warm/Dry Results Lab Laboratory Tests 06/07/23 08:31 Assessment/Plan Assessment/Plan Uncontrolled HTN, now better, last reading 150/84, CP still present with mild pressure. Possible NSTEMI, trop 0.49, given dose of Lovenox 90 mg SQ q 12h and metoprolol and a statin Cardiology to follow, to go to [facility] in am With Hb of 17 would consider cause of reactive polycythmia such as BATSHEVA. She had a sleep test about 3y ago and told was negative Critical Care: Critically Ill Patient Time spent with patient (mins): 25 SAGRARIO BOLANOS MD Jun 07, 2023 14:58
[2023-06-07] MEDS: ENOXAPARIN 100 MG/1 ML SYRINGE SC SCH (23:46)
[2023-06-08] MEDS ORDERED: NS IV 500 ML 500 ML IV PRN
[2023-06-08] MEDS: ACETAMINOPHEN 500 MG TABLET PO PRN (02:14)
[2023-06-08] MEDS ORDERED: POTASSIUM CL 10MEQ/50ML IVPB 50 ML IV SCH (06:00)
[2023-06-08] MEDS ORDERED: POTASSIUM CHLORIDE 20 MEQ TABLET PO SCH (06:00)
[2023-06-08] MEDS ORDERED: MAGNESIUM 1 GM/100 ML IVPB 100 ML IV SCH (06:00)
[2023-06-08 06:04] LABS: ALBUMIN 3.8 GM/DL (3.2-4.5); POTASSIUM 3.8 MMOL/L (3.6-5.0)
[2023-06-08 06:05] LABS: CALCIUM 9.1 MG/DL (8.5-10.1)
[2023-06-08 06:08] LABS: BILIRUBIN,TOTAL 1.1 MG/DL (0.1-1.0)
[2023-06-08 06:10] LABS: CREATININE SERUM 0.77 MG/DL (0.60-1.30)
[2023-06-08 06:13] LABS: MAGNESIUM 2.1 MG/DL (1.6-2.4)
[2023-06-08] MEDS: POTASSIUM CL 10MEQ/50ML IVPB 50 ML IV SCH ×2 (06:30→07:28)
[2023-06-08] MEDS ORDERED: HEParin (CATH LAB) 2,000 ML IV ONE (06:31)
[2023-06-08] MEDS ORDERED: LIDOCAINE 1% INJ 20 ML VIAL ONE (06:31)
[2023-06-08] MEDS ORDERED: LIDOCAINE 2% INJ 20 ML VIAL ONE (08:04)
[2023-06-08] MEDS ORDERED: fentaNYL INJECTION 100 MCG/2 ML VIAL ONE (08:10)
[2023-06-08] MEDS ORDERED: MIDAZOLAM INJ 5 MG/5 ML VIAL ONE (08:10)
[2023-06-08] MEDS ORDERED: VERAPAMIL 5 MG/2 ML (CALAN) VIAL IV ONE (08:10)
[2023-06-08] MEDS ORDERED: HEParin 1000 UNIT/ML (10ML VIAL) FOR BOLUS ONE (08:11)
[2023-06-08] MEDS ORDERED: NITRO DRIP 25000 MCG/D5W 250 ML IV ONE (08:11)
[2023-06-08] MEDS ORDERED: NS IV 1000 ML 1,000 ML ONE (08:47)
[2023-06-08] MEDS: ENOXAPARIN 100 MG/1 ML SYRINGE SC SCH (10:20)
--- NOTE | 2023-06-08 11:00 | Progress Note ---
NADIA TURPIN MD, RESIDENT 06/08/23 1100: Subjective Subjective/Events-last exam Patient doing well this morning, states her chest pain has resolved overnight. Per the nurse, patient was taken off of the nitro drip at around 10 PM and continued to deny any chest pain after that. Patient will be going down for cardiac cath today. She otherwise has no concerns this morning. Review of Systems General: No Fatigue HEENT: Head Aches Pulmonary: No Dyspnea, No Cough Cardiovascular: No: Chest Pain, Palpitations, Edema Gastrointestinal: No: Nausea, Vomiting, Diarrhea, Constipation Genitourinary: No Dysuria Neurological: No: Weakness Objective Exam Last Set of Vital Signs Vital Signs Date Time Temp Pulse Resp B/P (MAP) Pulse Ox O2 Delivery O2 Flow Rate FiO2 06/08/23 08:04 36.3 06/08/23 08:00 55 13 95 Room Air Capillary Refill : Less Than 3 Seconds I&O Intake and Output 06/07/23 23:59 Intake Total 1300 ml Output Total 325 ml Balance 975 ml Intake Oral 300 ml IV Total 1000 ml Output Urine Total 325 ml # Voids 3 Daily Weight Change No General: Alert, Oriented X3 HEENT: Atraumatic Neck: Supple, No Thyromegaly Lungs: Clear to Auscultation, Normal Air Movement Heart: Regular Rate, No Murmurs Abdomen: Normal Bowel Sounds, No Tenderness Extremities: No Edema Neuro: Normal Speech Psych/Mental Status: Mental Status NL Results/Procedures Lab Laboratory Tests 06/07/23 12:15: Mean Blood Glucose 94, Hemoglobin A1c 4.9, Magnesium Level 2.0, Triglycerides Level 87, Cholesterol Level 219H, LDL Cholesterol Direct 161H, VLDL Cholesterol 17, HDL Cholesterol 64H, Thyroid Stimulating Hormone (TSH) 1.08 06/07/23 13:55: SARS-CoV-2 RNA (RT-PCR) Not Detected 06/08/23 04:52: Magnesium Level 2.1, Sodium Level 137, Potassium Level 3.8, Chloride Level 102, Carbon Dioxide Level 27, Anion Gap 8, Blood Urea Nitrogen 12, Creatinine 0.77, Estimat Glomerular Filtration Rate 87, BUN/Creatinine Ratio 16, Glucose Level 96, Calcium Level 9.1, Corrected Calcium 9.3, Total Bilirubin 1.1H, Aspartate Amino Transf (AST/SGOT) 49H, Alanine Aminotransferase (ALT/SGPT) 27, Alkaline Phosphatase 91, Total Protein 7.0, Albumin 3.8 Radiology Chest x-ray (06/07/2023): IMPRESSION: Unremarkable chest. Assessment/Plan Assessment/Plan (1) NSTEMI (non-ST elevated myocardial infarction) Status: Acute Assessment & Plan: Patient noted to have elevated troponin on recheck. EKG otherwise normal. Given that patient was symptomatic, will monitor. Plan: Consulted cardiology, appreciate recommendations Continue metoprolol 25 daily Continue daily aspirin Follow-up cardiac cath today. If no longer requiring nitro drip, will transfer to cardiac stepdown Monitor on telemetry Therapeutic Lovenox Continue statin (2) Chest pain Status: Resolved Assessment & Plan: See above Qualifiers: Qualified Codes: R07.82 - Intercostal pain (3) Hypertensive emergency Status: Resolved Assessment & Plan: Likely also has hypertensive emergency given that patient did having a headache earlier this morning and is having chest pain. Status post dose of amlodipine and metoprolol in the ED. Noted that nitro was the most effective for patient's blood pressure. Only on hydrochlorothiazide 25 mg daily in the outpatient. Plan: Will have IV medications on board for hypertension if monitoring off nitro drip Consider starting losartan or amlodipine when transitioning to orals. Patient has tried lisinopril in the past which was discontinued due to cough (4) Fibromyalgia Status: Chronic Assessment & Plan: We will have pain medications on board as needed STEFANY TORRES MD 06/09/23 1315: Supervisory-Addendum Brief Supervisory Addendum I personally performed the reyna portions of the visit, discussed case with resident and concur with resident documentation of history, physical exam, assessment and treatment plan unless otherwise noted. NADIA TURPIN MD, RESIDENT Jun 08, 2023 11:00 STEFANY TORRES MD Jun 09, 2023 13:15
--- NOTE | 2023-06-08 12:18 | Cardiac Cath Report ---
Cardiac Cath Report Physician (s)/Teenage Babysitter (s) Physician DINORA MATTA MD Pre-Procedure Diagnosis Pre-Procedure Diagnosis: Unstable angina, non-STEMI Post-Procedure Note Procedure Start Date: Jun 08, 2023 Procedure Start Time: 09:00 Name of Procedure: Left heart catheterization, selective coronary angiography, left ventriculography Findings/Procedure Note After the patient signed informed consent each disclosed all possible risks and benefits of the procedure,Patient was positioned on the procedure table in the usual fashion. After sedation with fentanyl and Versed right wrist area was cleaned prepped and draped in the usual sterile fashion. Local anesthesia with lidocaine was administered. Right radial artery was cannulated with 6 K[place]z sheath, right radial cocktail was given intra-arterially. Under fluoroscopic guidance a pigtail catheter was inserted into the left ventricle, left ventricular pressure was measured and then a left ventricular angiogram was performed in LUX view. Then pigtail catheter was exchanged for 6 K[place]z JL 3.5 catheter which was positioned in the left coronary ostium under fluoroscopic guidance and multiple views of the left coronary artery was performed. Then left coronary catheter was exchanged for JR4 catheter which was positioned there was similar to the right coronary artery and right coronary artery was visualized and 2 views. Then catheter and wires were withdrawn. Radial sheath was withdrawn also and hemostasis was achieved by HemoBand application. No obvious complications noted. Patient remained pain-free, hemodynamically stable. Results: Left ventricle is normal in size and contractility, no obvious left ventricular wall motion abnormalities noted. Left main has no stenosis. LAD is average size of artery without any significant stenosis. Circumflex artery is codominant artery, no significant stenosis. Right coronary artery has no significant stenosis. Impression: No evidence for significant coronary artery disease. Disposition: Medical management. Patient could be discharged home today Anesthesia Type: Conscious Sedation Contrast Amount: 70 cc Post-Procedure Diagnosis Post-operative diagnosis: Normal coronary arteries DINORA MATTA MD Jun 08, 2023 12:18
[2023-06-08] MEDS ORDERED: ZINC50TA11 PO (12:29)
[2023-06-08] MEDS ORDERED: MULT-1136 PO (12:29)
[2023-06-08] MEDS ORDERED: THC GUMMIES PO (12:29)
[2023-06-08] MEDS ORDERED: ACET-2267 PO (12:29)
[2023-06-08] MEDS ORDERED: CHOL20002 PO (12:29)
[2023-06-08] MEDS ORDERED: NS IV 1000 ML 1,000 ML IV SCH (12:30)
[2023-06-08] MEDS ORDERED: PATIENT MAY USE OWN MEDS, ALL PO SCH (12:30)
[2023-06-08] MEDS: NITRO DRIP 25000 MCG/D5W 250 ML IV SCH (13:07)
[2023-06-08] MEDS ORDERED: AMLO5TAB4 PO (13:38)
[2023-06-08] MEDS ORDERED: ATOR40TA PO (13:38)
[2023-06-08] MEDS ORDERED: ASPI-999 PO (13:38)
[2023-06-08] MEDS ORDERED: LOSA100T58 PO (13:38)
[2023-06-08] MEDS ORDERED: amLODIPine 5 MG TABLET PO ONE (15:00)
--- NOTE | 2023-06-08 17:32 | Discharge Summary ---
NADIA TURPIN MD, RESIDENT 06/08/23 1732: Discharge Summary Hospital Course Problems/Diagnosis: (1) NSTEMI (non-ST elevated myocardial infarction) Status: Acute Assessment & Plan: Patient noted to have elevated troponin on recheck. EKG otherwise normal. Given that patient was symptomatic, will monitor. Plan: Consulted cardiology, appreciate recommendations Continue metoprolol 25 daily Continue daily aspirin Normal cardiac cath, discharge today Monitor on telemetry Therapeutic Lovenox Continue statin (2) Chest pain Status: Resolved Resolution Date/Time: 06/08/23 @ 17:27 Assessment & Plan: See above Qualifiers: Qualified Codes: R07.82 - Intercostal pain (3) Hypertensive emergency Status: Resolved Resolution Date/Time: 06/08/23 @ 17:28 Assessment & Plan: Likely also has hypertensive emergency given that patient did having a headache earlier this morning and is having chest pain. Status post dose of amlodipine and metoprolol in the ED. Noted that nitro was the most effective for patient's blood pressure. Only on hydrochlorothiazide 25 mg daily in the outpatient. Plan: Will have IV medications on board for hypertension if monitoring off nitro drip Consider starting losartan or amlodipine when transitioning to orals. Patient has tried lisinopril in the past which was discontinued due to cough (4) Fibromyalgia Status: Chronic Assessment & Plan: We will have pain medications on board as needed Hospital Course Date of Admission: Jun 07, 2023 at 11:57 Admission Diagnosis : Family Physician/Provider: Date of Discharge: 06/08/23 Discharge Diagnosis: NSTEMI, Hypertensive emergency Hospital Course: Patient is a 62-year-old female with past medical history of hypertension, fibromyalgia presenting with chest pain. She woke up the morning of admission with headache and had sudden onset of persistent chest pain with SOB. She presented to the ED for further evaluation where she was noted to have a normal EKG. Initial troponin was negative but repeat was elevated. Patient was also noted to have significantly elevated blood pressures with systolics in the 220s. She was thus admitted to the ICU for further management. She was managed on a nitro drip due to continued chest pain with eventual resolution. Cardiac cath was completed on 06/08 that was negative and did not require any interventions. Will discharge patient home with amlodipine 5mg and losartan 100mg as well as home HCTZ. Recommend close follow up in the outpatient for blood pressure management. Labs and Pending Lab Test: Laboratory Tests 06/08/23 04:52: Sodium Level 137, Potassium Level 3.8, Chloride Level 102, Carbon Dioxide Level 27, Anion Gap 8, Blood Urea Nitrogen 12, Creatinine 0.77, Estimat Glomerular Filtration Rate 87, BUN/Creatinine Ratio 16, Glucose Level 96, Calcium Level 9.1, Corrected Calcium 9.3, Magnesium Level 2.1, Total Bilirubin 1.1H, Aspartate Amino Transf (AST/SGOT) 49H, Alanine Aminotransferase (ALT/SGPT) 27, Alkaline Phosphatase 91, Total Protein 7.0, Albumin 3.8 Home Meds Active Norvasc (Amlodipine Besylate) 5 Mg Tablet 5 Mg PO DAILY Losartan Potassium 100 Mg Tablet 100 Mg PO DAILY Lipitor (Atorvastatin Calcium) 40 Mg Tablet 40 Mg PO HS Aspirin 81 Mg Tab.chew 81 Mg PO DAILY Reported Multivitamin 1 Each Tablet 1 Each PO DAILY Zinc (Zinc Gluconate) 50 Mg Tablet 50 Mg PO DAILY Vitamin D3 (Cholecalciferol (Vitamin D3)) 50 Mcg (2000 Unit) Capsule 50 Mcg PO DAILY Tylenol Extra Strength (Acetaminophen) 500 Mg Tablet 1,000 Mg PO Q8H PRN [Thc Gummies] 1 Ea PO DAILY PRN Assessment/Pt DC Instructions Please see electronic discharge instructions given to patient. Discharge Diet: No Restrictions Discharge Physical Examination Allergies: Coded Allergies: No Known Drug Allergies (Unverified , 01/26/19) General Appearance: No Apparent Distress HEENT: PERRL/EOMI, Normal ENT Inspection Respiratory: Chest Non Tender, Lungs Clear, Normal Breath Sounds, No Accessory Muscle Use, No Respiratory Distress Cardiovascular: Regular Rate, Rhythm, No Edema, No Murmur Gastrointestinal: Normal Bowel Sounds, Non Tender, Soft Extremity: No Pedal Edema Skin: Normal Color, Warm/Dry Neurologic/Psychiatric: Alert, Oriented x3 STEFANY TORRES MD 06/09/23 1312: Discharge Summary Discharge Physical Examination Allergies: Coded Allergies: No Known Drug Allergies (Unverified , 01/26/19) Supervisory-Addendum Brief Supervisory Addendum I personally performed the reyna portions of the visit, discussed case with resident and concur with resident documentation of history, physical exam, assessment and treatment plan unless otherwise noted. NADIA TURPIN MD, RESIDENT Jun 08, 2023 17:32 STEFANY TORRES MD Jun 09, 2023 13:12
--- NOTE | 2023-06-14 10:01 | Conscious Sedation/ASA ---
Moderate Sedation PreProcedure ASA Score Airway Lungs Heart ASA score ASA 1: a normal healthy patient ASA 2: a patient with a mild systemic disease (mid diabetes, controlled hypertension, obesity ASA 3: a patient with a severe systemic disease that limits activity (angina, COPD, prior Myocardial infarction) ASA 4: a patient with an incapacitating disease that is a constant threat to life (CHF, renal failure) ASA 5: a moribund patient not expected to survive 24 hrs. (ruptured aneurysm) ASA 6: a declared brain- patient whose organs are being harvested. For emergent operations, add the letter E after the classification Sedation Plan The patient is an appropriate candidate to undergo the planned procedure, sedation, and anesthesia. The patient immediately re-assessed prior to indication. OPAL,JulJun 14, 2023 10:01
== END 2023-06-08 18:00 | disposition home or self-care (01) | DRG 281 ==
LOC: EDUNIT# 08:19 → ER FS 08:21 → CSD 11:50 → INTOOBSV 11:50 → OBSVTOIN 11:57 → ICU 13:28
PROVIDERS: ADMIT Family Medicine; ATTEND Family Medicine
PROC: 4A023N7 Measurement of Cardiac Sampling and Pressure, Left Heart, Percutaneous Approach (ICD-10-PCS; principal; 2023-06-07)
PROC: B2111ZZ Fluoroscopy of Multiple Coronary Arteries using Low Osmolar Contrast (ICD-10-PCS; 2023-06-07)
PROC: B2151ZZ Fluoroscopy of Left Heart using Low Osmolar Contrast (ICD-10-PCS; 2023-06-07)
DX: I21.4 Non-ST elevation (NSTEMI) myocardial infarction (principal); I16.1 Hypertensive emergency; I10 Essential (primary) hypertension; I20.0 Unstable angina; M79.7 Fibromyalgia; Z87.891 Personal history of nicotine dependence; Z85.89 Personal history of malignant neoplasm of other organs and systems; Z20.822 Contact with and (suspected) exposure to COVID-19
CPT/HCPCS: 36415; 71045; 80053; 80061; 83036; 83690; 83735; 83880; 84443; 84484; 85025; 85027; 85610; 85730; 87636; 93005; 93041; 93306; 93458; 96372; 96374